=== PATIENT | female | born 1995 | race Caucasian/White ===

== ENCOUNTER 2023-08-25 15:46 | Emergency (ER) | payer SELFPAY ==
[2023-08-25 15:51] VITALS: BP 128/73; PULSE 102; TEMP 37.1; O2SAT 99; BMI 40.7
--- NOTE | 2023-08-25 16:04 | ED_ITS ---
HPI HPI - General Adult General Chief complaint: OB/Uterine Contractions Stated complaint: Anxiety, Check Time Seen by Provider: 08/25/23 15:50 Source: patient Mode of arrival: walk-in History of Present Illness HPI narrative: Patient is a 28-year-old female who presents to the emergency department for abdominal cramping for the last week associated with occasional vomiting and diarrhea. She states she is concerned she may be because she has irregular periods but thinks her period may be 1 week late. She is concerned because she has a history of depression and takes depression medications. She has had no fevers, chills, cough, congestion. She has no severe abdominal pain and declined the need for any pain medication or nausea medication. She has never been previously and states she is anxious to know if she is so she can find out what of her medication she can continue taking. 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 She does not report any vaginal bleeding, fluid leakage or urinary symptoms. Related Data Home Medications ?Medication ?Instructions ?Recorded ?Confirmed hydroxyzine pamoate 25 mg capsule 25 mg PO BID PRN anxiety 08/25/23 08/25/23 sertraline 100 mg tablet 150 mg PO DAILY 08/25/23 08/25/23 trazodone 50 mg tablet 50 mg PO QPM PRN sleep 08/25/23 08/25/23 Previous Rx's ?Medication ?Instructions ?Recorded ondansetron 4 mg disintegrating 4 mg PO Q6H PRN nausea and 08/25/23 tablet vomiting #12 tabs Allergies Allergy/AdvReac Type Severity Reaction Status Date / Time No Known Drug Allergies Allergy Verified 08/25/23 15:56 Opioid HPI Opioid Management Most Recent Opioid Data: Last ED Pain Assessment 08/25/23 16:47 Review of Systems ROS Constitutional Denies: fever or chills Ears, nose, mouth, and throat Denies: throat pain or nasal congestion Cardiovascular Denies: chest pain Respiratory Denies: shortness of breath or cough Gastrointestinal Reports: abdominal pain, nausea, vomiting and diarrhea Genitourinary Reports: pelvic pain; Denies: painful urination, vaginal bleeding or vaginal discharge Musculoskeletal Denies: back pain Integumentary/Breast Denies: rash Neurological Denies: headache Psychiatric Reports: anxiety Hematologic/Lymphatic Denies: easy bruising or easy bleeding Exam Narrative Exam Narrative: Gen.: Awake, alert, in no distress Head: Normocephalic, atraumatic ENT: Moist mucous membranes Respiratory: No respiratory distress Gastrointestinal: Abdomen is soft, obese, nondistended and nontender to pa lpation Extremities: Moves extremities equally Psych: Normal mood and affect Neuro: No focal neuro deficit Skin: Warm, dry, intact Constitutional Vital Signs, click to edit/add: Last Vital Signs Temp 98.8 F 08/25/23 15:51 Pulse 102 H 08/25/23 15:51 Resp 18 08/25/23 15:51 BP 128/73 08/25/23 15:51 Pulse Ox 99 08/25/23 15:51 O2 Del Method Room Air 08/25/23 15:51 Course Vital Signs Vital signs: Vital Signs Temperature 98.8 F 08/25/23 15:51 Pulse Rate 102 H 08/25/23 15:51 Respiratory Rate 18 08/25/23 15:51 Blood Pressure 128/73 08/25/23 15:51 Pulse Oximetry 99 08/25/23 15:51 Oxygen Delivery Method Room Air 08/25/23 15:51 Temperature 98.8 F 08/25/23 15:51 Pulse Rate 102 H 08/25/23 15:51 Respiratory Rate 18 08/25/23 15:51 Blood Pressure 128/73 08/25/23 15:51 Pulse Oximetry 99 08/25/23 15:51 Oxygen Delivery Method Room Air 08/25/23 15:51 Medical Decision Making MDM Narrative Medical decision making narrative: Abdomen is soft and benign in the ER, patient with no complaints of tenderness, no pain out of proportion, stable vital signs and no vomiting. She declined the need for any medication for pain or nausea. Labs are unremarkable, we will wait for urine culture as the specimen was contaminated and the patient has no vaginal bleeding, fluid leakage or urinary symptoms. Quantitative hCG level is 16,000. Patient was given general instructions, she was strongly encouraged to contact her PHYSICS DEPARTMENT CHAIR office on Sunday for further direction on her depression medications. Return to the ER if symptoms change or worsen. Medical Records Medical records reviewed: Yes I reviewed the patient's medical records Lab Data Lab results reviewed: Yes I reviewed the patient's lab results Labs: Lab Results 08/25/23 08/25/23 Range/Units 15:53 16:09 WBC 10.8 (4.0-11.0) 10^3/uL RBC 4.12 L (4.20-5.40) 10^6/uL Hgb 12.9 (12.0-16.0) g/dL Hct 38.9 (36.0-48.0) % MCV 94.4 (81.0-99.0) fL MCH 31.3 (26.7-34.0) pg MCHC 33.2 (29.9-35.2) g/dL RDW 12.7 (11.0-15.0) % Plt Count 269 (150-450) 10^3/uL MPV 9.8 (9.5-13.5) fL Neut % (Auto) 59.5 (43.0-75.0) % Lymph % (Auto) 29.5 (20.5-60.0) % [place] % (Auto) 5.9 (1.7-12.0) % Eos % (Auto) 3.5 (0.9-7.0) % Baso % (Auto) 0.5 (0.2-2.0) % Neut # (Auto) 6.5 (1.4-6.5) 10^3/uL Lymph # (Auto) 3.2 (1.2-3.8) 10^3/uL [place] # (Auto) 0.6 (0.3-0.8) 10^3/uL Eos # (Auto) 0.4 (0.0-0.7) 10^3/uL Baso # (Auto) 0.1 (0.0-0.1) 10^3/uL Abs Immat Gran (auto) 0.12 H (0.00-0.03) 10^3/uL Imm/Tot Granulo (auto) 1.1 H (0.0-0.5) % Sodium 140 (136-145) mmol/L Potassium 3.6 (3.5-5.1) mmol/L Chloride 105 (98-107) mmol/L Carbon Dioxide 25.6 (21.0-32.0) mmol/L Anion Gap 13.0 BUN 7.0 (7.0-18.0) mg/dL Creatinine 0.61 (0.55-1.02) mg/dL Est GFR ( Amer) >60 (>=60) Est GFR (Non-Af Amer) >60 (>=60) BUN/Creatinine Ratio 11.5 Glucose 86 (74-106) mg/dL Calcium 8.9 (8.5-10.1) mg/dL HCG, Quant 71776 mIU/mL Urine Color Lt. yellow (YELLOW) Urine Clarity Sl cloudy (CLEAR) Urine pH 6.0 (5.0-9.0) Ur Specific [place] 1.020 (1.005-1.025) Urine Protein Negative (NEG/TRACE) mg/dL Urine Glucose (UA) Negative (NEGATIVE) mg/dL Urine Ketones Negative (NEGATIVE) mg/dL Urine Occult Blood Trace-i (NEGATIVE) Urine Nitrite Negative (NEGATIVE) Urine Bilirubin Negative (NEGATIVE) Urine Urobilinogen 0.2 (0.2-1.0) EU/dL Ur Leukocyte Esterase Negative (NEGATIVE) Urine RBC 2-5 A (0-2) #/HPF Urine WBC 0-2 A (NONE SEEN) #/HPF Ur Squamous Epith Cells Many A (NONE/RARE) #/LPF Urine Crystals None seen (None Seen) #/HPF Urine Bacteria Small A (NONE SEEN) #/HPF Urine Casts None seen (NONE SEEN) #/LPF Urine Mucus None seen (NONE SEEN) Ur Culture Indicated? Yes Discharge Plan Discharge Stand Alone Forms: Portal Instructions Chief Complaint: OB/Uterine Contractions Clinical Impression: Patient Disposition: Home, Self-Care Time of Disposition Decision: 17:09 Condition: Good Prescriptions / Home Meds: New ondansetron 4 mg tablet,disintegrating 4 mg PO Q6H PRN (Reason: nausea and vomiting) Qty: 12 0RF No Action hydroxyzine pamoate 25 mg capsule 25 mg PO BID PRN (Reason: anxiety) sertraline 100 mg tablet 150 mg PO DAILY trazodone 50 mg tablet 50 mg PO QPM PRN (Reason: sleep) Print Language: Tanzanian Instructions: (ED) Referrals: Physician,Non-Staff, MD [Primary Care Provider] - 1 week
[2023-08-25 16:21] LABS: Basophils Absolute Auto 0.1 10^3/uL (0.0-0.1); Basophils Percent Auto 0.5 % (0.2-2.0); Eosinophils Absolute Auto 0.4 10^3/uL (0.0-0.7); Eosinophils Percent Auto 3.5 % (0.9-7.0); Hematocrit 38.9 % (36.0-48.0); Hemoglobin 12.9 g/dL (12.0-16.0); Immature Granulocytes Abs Auto 0.12 10^3/uL (0.00-0.03); Immature Granulocytes Pct Auto 1.1 % (0.0-0.5); Lymphocytes Absolute Auto 3.2 10^3/uL (1.2-3.8); Lymphocytes Percent Auto 29.5 % (20.5-60.0); Mean Corpuscular HGB Conc 33.2 g/dL (29.9-35.2); Mean Corpuscular Hemoglobin 31.3 pg (26.7-34.0); Mean Corpuscular Volume 94.4 fL (81.0-99.0); Mean Platelet Volume 9.8 fL (9.5-13.5); Monocytes Absolute Auto 0.6 10^3/uL (0.3-0.8); Monocytes Percent Auto 5.9 % (1.7-12.0); Neutrophils Absolute Auto 6.5 10^3/uL (1.4-6.5); Neutrophils Percent Auto 59.5 % (43.0-75.0); Platelet Count 269 10^3/uL (150-450); Red Blood Count 4.12 10^6/uL (4.20-5.40); Red Cell Distribution Width 12.7 % (11.0-15.0); White Blood Count 10.8 10^3/uL (4.0-11.0)
[2023-08-25 16:21] LABS: Bilirubin Urine NEGATIVE (NEGATIVE); Blood Urine TRACE-I (NEGATIVE); Clarity Urine SL CLOUDY (CLEAR); Color Urine LT. YELLOW (YELLOW); Glucose Urine UA NEGATIVE (NEGATIVE); Ketones Urine NEGATIVE (NEGATIVE); Leukocyte Esterase Urine NEGATIVE (NEGATIVE); Nitrite Urine NEGATIVE (NEGATIVE); Protein Urine NEGATIVE (NEG/TRACE); Urobilinogen Urine 0.2 EU/dL (0.2-1.0)
[2023-08-25 16:22] LABS: Urine Microscopic Indicated YES
[2023-08-25 16:31] LABS: BUN Creatinine Ratio 11.5; Calcium 8.9 mg/dL (8.5-10.1); Carbon Dioxide 25.6 mmol/L (21.0-32.0); Chloride 105 mmol/L (98-107); Estimated GFR (African America >60 (>=60); Estimated GFR (Non-African Ame >60 (>=60); Glucose 86 mg/dL (74-106); Potassium 3.6 mmol/L (3.5-5.1); Sodium 140 mmol/L (136-145)
[2023-08-25 16:33] LABS: Bacteria Urine SMALL #/HPF (NONE SEEN); Cast Seen? NONE SEEN #/LPF (NONE SEEN); Crystals Seen? None Seen #/HPF (None Seen); Mucus Urine NONE SEEN (NONE SEEN); Squamous Epithelial Cell Urine MANY #/LPF (NONE/RARE); Urine Culture Indicated YES; WBC Urine 0-2 #/HPF (NONE SEEN)
[2023-08-25 16:58] LABS: HCG Quantitative 16004 mIU/mL
[2023-08-25 17:21] VITALS: BP 129/90; PULSE 99; O2SAT 99
== END 2023-08-25 17:23 | disposition home or self-care (01) ==
PROVIDERS: Physician Assistant; Emergency Provider Emergency Medicine
DX: O99.340 Other mental disorders complicating pregnancy, unspecified trimester (principal); F32.A Depression, unspecified; Z3A.00 Weeks of gestation of pregnancy not specified
CPT/HCPCS: 36415; 80048; 81001; 84702; 85025; 87086; 99284

== ENCOUNTER 2023-10-07 22:26 | Emergency (ER) | payer MEDICAID, SELFPAY ==
[2023-10-07 22:30] VITALS: BP 137/70; PULSE 90; TEMP 36.8; O2SAT 97; BMI 40.8
--- NOTE | 2023-10-07 22:35 | ED_ITS ---
HPI - Nausea/Vomiting/Diarrhea General Chief complaint: Nausea/Vomiting/Diarrhea Stated complaint: Issues - 12 weeks Time Seen by Provider: 10/07/23 22:28 History of Present Illness HPI Narrative: 71 female presents to the emergency department for chief complaint of nausea and vomiting. She is about 12 weeks and she has had this for the last week. She has been taking Zofran at home. No vaginal bleeding or fever. She has not had diarrhea. Related Data Home Medications ?Medication ?Instructions ?Recorded ?Confirmed hydroxyzine pamoate 25 mg capsule 25 mg PO BID PRN anxiety 08/25/23 10/07/23 sertraline 100 mg tablet 150 mg PO DAILY 08/25/23 10/07/23 trazodone 50 mg tablet 50 mg PO QPM PRN sleep 08/25/23 10/07/23 aspirin 81 mg chewable tablet 10/07/23 Previous Rx's ?Medication ?Instructions ?Recorded ondansetron 4 mg disintegrating 4 mg PO Q6H PRN nausea and 08/25/23 tablet vomiting #12 tabs Allergies Allergy/AdvReac Type Severity Reaction Status Date / Time No Known Drug Allergies Allergy Verified 10/07/23 22:37 Review of Systems ROS Narrative A ten point review of systems is negative except as noted above. Exam Narrative Exam Narrative: Nurses note and vital signs reviewed and patient is not hypoxic. General: The patient appears well and in no apparent distress. Patient is resting comfortably on cart. Skin: Warm, dry, no pallor noted. There is no rash noted. Head: Normocephalic, atraumatic Eye: Normal conjunctiva, no drainage Ears, Nose, Mouth, and Throat: oral mucosa is moist. Nares patent. Cardiovascular: Regular Rate and Rhythm Respiratory: Patient is in no distress, no accessory muscle use, lungs are clear to auscultation, no wheezing, rales or rhonchi Back: non-tender GI: Soft and nontender Musculoskeletal: The patient has no evidence of calf tenderness, no pitting edema, symmetrical pulses noted bilaterally Neurological: A&O, normal speech Psychiatric: Cooperative Constitutional Vital Signs, click to edit/add: Last Vital Signs Temp 98.2 F 10/07/23 22:30 Pulse 76 10/08/23 00:19 Resp 16 10/08/23 00:19 BP 128/76 10/08/23 00:19 Pulse Ox 100 10/08/23 00:19 O2 Del Method Room Air 10/07/23 22:30 Course Vital Signs Vital signs: Vital Signs Temperature 98.2 F 10/07/23 22:30 Pulse Rate 90 10/07/23 22:30 Respiratory Rate 18 10/07/23 22:30 Blood Pressure 137/70 10/07/23 22:30 Pulse Oximetry 97 10/07/23 22:30 Oxygen Delivery Method Room Air 10/07/23 22:30 Temperature 98.2 F 10/07/23 22:30 Pulse Rate 76 10/08/23 00:19 Respiratory Rate 16 10/08/23 00:19 Blood Pressure 128/76 10/08/23 00:19 Pulse Oximetry 100 10/08/23 00:19 Oxygen Delivery Method Room Air 10/07/23 22:30 MDM - Nausea/Vomiting/Diarrhea MDM Narrative Medical decision making narrative: She was given IV fluids and seems to be feeling improved. Urine culture is ordered and pending. She does not have any UTI symptoms. She has Zofran recently prescribed for her. Treatment diagnosis and follow-up were discussed with the patient. Differential Diagnosis Differential diagnosis: Likely food poisoning, gastroenteritis and dehydration Lab Data Attestation: I reviewed the patient's lab results. Labs: Lab Results 10/07/23 10/07/23 Range/Units 22:40 23:05 WBC 10.0 (4.0-11.0) 10^3/uL RBC 4.00 L (4.20-5.40) 10^6/uL Hgb 12.4 (12.0-16.0) g/dL Hct 36.2 (36.0-48.0) % MCV 90.5 (81.0-99.0) fL MCH 31.0 (26.7-34.0) pg MCHC 34.3 (29.9-35.2) g/dL RDW 11.9 (11.0-15.0) % Plt Count 277 (150-450) 10^3/uL MPV 9.9 (9.5-13.5) fL Neut % (Auto) 54.9 (43.0-75.0) % Lymph % (Auto) 35.8 (20.5-60.0) % [place] % (Auto) 6.7 (1.7-12.0) % Eos % (Auto) 1.6 (0.9-7.0) % Baso % (Auto) 0.3 (0.2-2.0) % Neut # (Auto) 5.5 (1.4-6.5) 10^3/uL Lymph # (Auto) 3.6 (1.2-3.8) 10^3/uL [place] # (Auto) 0.7 (0.3-0.8) 10^3/uL Eos # (Auto) 0.2 (0.0-0.7) 10^3/uL Baso # (Auto) 0.0 (0.0-0.1) 10^3/uL Abs Immat Gran (auto) 0.07 H (0.00-0.03) 10^3/uL Imm/Tot Granulo (auto) 0.7 H (0.0-0.5) % Sodium 135 L (136-145) mmol/L Potassium 3.1 L (3.5-5.1) mmol/L Chloride 102 (98-107) mmol/L Carbon Dioxide 23.6 (21.0-32.0) mmol/L Anion Gap 12.5 BUN 7.0 (7.0-18.0) mg/dL Creatinine 0.51 L (0.55-1.02) mg/dL Est GFR ( Amer) >60 (>=60) Est GFR (Non-Af Amer) >60 (>=60) BUN/Creatinine Ratio 13.7 Glucose 86 (74-106) mg/dL Calcium 8.7 (8.5-10.1) mg/dL Urine Color Yellow (YELLOW) Urine Clarity Clear (CLEAR) Urine pH 7.0 (5.0-9.0) Ur Specific [place] 1.020 (1.005-1.025) Urine Protein Negative (NEG/TRACE) mg/dL Urine Glucose (UA) Negative (NEGATIVE) mg/dL Urine Ketones 40 A (NEGATIVE) mg/dL Urine Occult Blood Negative (NEGATIVE) Urine Nitrite Negative (NEGATIVE) Urine Bilirubin Negative (NEGATIVE) Urine Urobilinogen 2.0 A (0.2-1.0) EU/dL Ur Leukocyte Esterase Trace A (NEGATIVE) Urine RBC 0-2 (0-2) #/HPF Urine WBC 5-10 A (NONE SEEN) #/HPF Ur Squamous Epith Cells Few A (NONE/RARE) #/LPF Ur Transition Epith Cell Rare A (NONE SEEN) #/LPF Urine Crystals Seen A (None Seen) #/HPF Amorphous Sediment Many Urine Bacteria Moderate A (NONE SEEN) #/HPF Urine Casts None seen (NONE SEEN) #/LPF Urine Mucus Moderate A (NONE SEEN) Ur Culture Indicated? Yes Discharge Plan Discharge Stand Alone Forms: Portal Instructions Chief Complaint: Nausea/Vomiting/Diarrhea Clinical Impression: Nausea & vomiting Patient Disposition: Home, Self-Care Time of Disposition Decision: 00:54 Condition: Good Mode of Transportation: Private Vehicle Prescriptions / Home Meds: No Action hydroxyzine pamoate 25 mg capsule 25 mg PO BID PRN (Reason: anxiety) Hold Instructions: sertraline 100 mg tablet 150 mg PO DAILY trazodone 50 mg tablet 50 mg PO QPM PRN (Reason: sleep) Hold Instructions: ondansetron 4 mg tablet,disintegrating 4 mg PO Q6H PRN (Reason: nausea and vomiting) Qty: 12 0RF aspirin 81 mg tablet,chewable Print Language: Setswana Instructions: Acute Nausea and Vomiting (ED) Referrals: Physician,Non-Staff, MD [Primary Care Provider] - 1 week
[2023-10-07 22:48] LABS: Basophils Percent Auto 0.3 % (0.2-2.0); Eosinophils Absolute Auto 0.2 10^3/uL (0.0-0.7); Eosinophils Percent Auto 1.6 % (0.9-7.0); Hematocrit 36.2 % (36.0-48.0); Hemoglobin 12.4 g/dL (12.0-16.0); Immature Granulocytes Abs Auto 0.07 10^3/uL (0.00-0.03); Immature Granulocytes Pct Auto 0.7 % (0.0-0.5); Lymphocytes Absolute Auto 3.6 10^3/uL (1.2-3.8); Lymphocytes Percent Auto 35.8 % (20.5-60.0); Mean Corpuscular HGB Conc 34.3 g/dL (29.9-35.2); Mean Corpuscular Volume 90.5 fL (81.0-99.0); Mean Platelet Volume 9.9 fL (9.5-13.5); Monocytes Absolute Auto 0.7 10^3/uL (0.3-0.8); Monocytes Percent Auto 6.7 % (1.7-12.0); Neutrophils Absolute Auto 5.5 10^3/uL (1.4-6.5); Neutrophils Percent Auto 54.9 % (43.0-75.0); Platelet Count 277 10^3/uL (150-450); Red Cell Distribution Width 11.9 % (11.0-15.0)
[2023-10-07 22:56] LABS: Anion Gap 12.5; BUN Creatinine Ratio 13.7; Calcium 8.7 mg/dL (8.5-10.1); Carbon Dioxide 23.6 mmol/L (21.0-32.0); Chloride 102 mmol/L (98-107); Estimated GFR (African America >60 (>=60); Estimated GFR (Non-African Ame >60 (>=60); Glucose 86 mg/dL (74-106); Potassium 3.1 mmol/L (3.5-5.1); Sodium 135 mmol/L (136-145)
[2023-10-07] MEDS: 0.9 % SODIUM CHLORIDE 1,000 ML 1000 ML IV (22:56)
[2023-10-07] MEDS: ONDANSETRON PF 4 MG/2 ML VIAL IV (22:56)
[2023-10-07 23:12] LABS: Bilirubin Urine NEGATIVE (NEGATIVE); Blood Urine NEGATIVE (NEGATIVE); Clarity Urine CLEAR (CLEAR); Color Urine YELLOW (YELLOW); Glucose Urine UA NEGATIVE (NEGATIVE); Ketones Urine 40 mg/dL (NEGATIVE); Leukocyte Esterase Urine TRACE (NEGATIVE); Nitrite Urine NEGATIVE (NEGATIVE); Protein Urine NEGATIVE (NEG/TRACE)
[2023-10-07 23:20] LABS: Amorphous Sediment Urine MANY; Bacteria Urine MODERATE #/HPF (NONE SEEN); Cast Seen? NONE SEEN #/LPF (NONE SEEN); Crystals Seen? Seen #/HPF (None Seen); Mucus Urine MODERATE (NONE SEEN); RBC Urine 0-2 #/HPF (0-2); Squamous Epithelial Cell Urine FEW #/LPF (NONE/RARE); Transitional Epi Cells Urine RARE #/LPF (NONE SEEN); Urine Culture Indicated YES
[2023-10-08] MEDS: 0.9 % SODIUM CHLORIDE 1,000 ML 1000 ML IV
[2023-10-08 00:19] VITALS: BP 128/76; PULSE 76; O2SAT 100
[2023-10-08 01:13] VITALS: BP 123/71; PULSE 80; O2SAT 100
== END 2023-10-08 01:13 | disposition home or self-care (01) ==
PROVIDERS: Emergency Provider Emergency Medicine
DX: O26.891 Other specified pregnancy related conditions, first trimester (principal); R11.2 Nausea with vomiting, unspecified; Z3A.12 12 weeks gestation of pregnancy
CPT/HCPCS: 36415; 80048; 81001; 85025; 87086; 96361; 96374; 99284

== ENCOUNTER 2023-12-08 16:36 | Emergency (ER) | payer MEDICAID, SELFPAY ==
[2023-12-08 16:44] VITALS: BP 122/64; PULSE 102; TEMP 36.8; O2SAT 98; BMI 40.4
--- OUTSIDE RECORDS SUMMARY | 2023-12-08 16:47 | XMS_ITS | CCD ---
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 Supervisor: Israel Valiente MD WBC (Bld) [#/Vol] 12.1 10*3/uL High 3.5-11.[address] [facility] Comment on above: Performed By: #### B HCG #### [address] [place] [phone] Ingot Supervisor: Israel Valiente MD Type + Scrnon 09-04 Type + Scrn Negative Normal [facility] Comment on above: Performed By: #### P RTYS #### [address] [place], [facility]83 Ingot Supervisor: Israel Valiente MD US OB LESS THAN 14 WEEKS SIN GLE OR FIRST GESTATIONon 09-05-2023 US OB LESS THAN 14 WEEKS SINGLE OR FIRST GESTATION Table formatting from the original result was not included. Bruna Bowie on 09/05/2023 2:16 PM EDT 7.4 WK IUP CL:3.0 cm HR:143 bpm RT. OVARY:Seen, WNL LT. OVARY:Not visualized due to overlying bowel and gas Interpreted by: Lazaro Tucker MD Signed by: Lazaro Tucker MD 09/05/23 Final result Normal [facility] HCG, Quanton 08-27-2023 HCG, Quant 21635.0 mIU/mL High <5 [facility] in Hospital Comment on above: Result Comment: Non-preg premeno <=5 Postmeno <=8 Male <=3 If HCG results do not concur with clinical observations, additional testing to confirm results is recommended. Performed By: #### B HCG #### [facility] [address] [place] [address] Ingot Supervisor: Israel Valiente MD US NON OB TRANSVAGINALon US NON OB TRANSVAGINAL UTERUS:anteverted, homogeneous echo pattern; wnl ENDO:7mm in thickness RT. OVARY:seen, follicles visualized LT. OVARY:seen, dominant follicle felix- 1.6cm x 1.5cm x 1.2cm Interpreted by: Yeimi Kat DO Signed by: Yeimi Kat DO 03/08/23 Final result Normal [facility] Estradiolon 03-03-2023 Estradiol 72.0 pg/mL Normal [facility] Comment on above: Result Comment: FEMALES: Normally menstruating Luteal phase 60-232 Follicular phase 31-90 Midcycle phase 60-533 Postmenopausal (untreated) <138 Fulvestrant treatment will show an increased estradiol concentration with this methodology. Alternate methodologies are available upon request. Performed By: #### T EST, HIVCMB, PROG, TREP, AHCV, PROL, E2, FSH #### [address] [place] [address] Ingot Supervisor: Maurice Alejandre MD Follicle Stim. Hormon 2022 Follicle Stim. Horm 5.6 mIU/mL Normal [facility] Comment on above: Result Comment: Refe rence Range: Male: 1.5-12.4 Ovulating Female: Follicular Phase 3.5-12.5 Ovulation Phase 4.7-21.5 Luteal Phase 1.7-7.7 Postmenopausal Female: 25.8-134.8 Performed By: #### T EST, HIVCMB, PROG, TREP, AHCV, PROL, E2, FSH #### [address] [place], [place] [address] Ingot Supervisor: Maurice Alejandre MD Progesteroneon 03-03-2023 Progesterone 0.27 ng/mL Normal [facility] Comment on above: Result Comment: Female: Follicular phase <0.19 ng/mL Ovulation phase 0.06-4.14 ng/mL Luteal phase 4.11-14.5 ng/mL Postmenopausal <0.13 ng/mL Performed By: #### B HCG #### [facility] [address] [place] [address] Ingot Supervisor: Israel Valiente MD Chlamydia/GC DNA, TPon 03-02 Chlamydia Probe, TP Negative Normal NEG [facility] Comment on above: Result Comment: CHLA MYDIA TRACHOMATIS DNA not detected by nucleic acid amplification. This test is intended for medical purposes only and is not valid for the evaluation of suspected sexual abuse or for other forensic purposes. In certain contexts, culture may be required to meet applicable laws and regulations for diagnosis of C. trachomatis and N. gonorrhoeae infections. Per 2014 CDC recommendations, this test does not include confirmation of positive results by an alternative nucleic acid target. Performed By: #### C YTCGP #### [address] [id number] Ingot Supervisor: Maurice Alejandre MD Gonorrhea Probe, TP Negative Normal NEG [facility] Comment on above: Result Comment: NEIS SERIA GONORRHOEAE DNA not detected by nucleic acid amplification. This test is intended for medical purposes only and is not valid for the evaluation of suspected sexual abuse or for other forensic purposes. In certain contexts, culture may be required to meet applicable laws and regulations for diagnosis of C. trachomatis and N. gonorrhoeae infections. Per 2014 CDC recommendations, this test does not include confirmation of positive results by an alternative nucleic acid target. Performed By: #### C YTCGP #### [facility] [address] [place], [place] [phone] Ingot Supervisor: Maurice Alejandre MD HIV Ag/Abon 03-02-2023 HIV Ag/Ab Non-Reactive Normal NR [facility] Comment on above: Result Comment: No l aboratory evidence of HIV infection. If acute HIV infection is suspected, consider testing for HIV-1 RNA. Performed By: #### T EST, HIVCMB, PROG, TREP, AHCV, PROL, E2, FSH #### [address] [id number] Ingot Supervisor: Maurice Alejandre MD Prolactinon 03-02-2023 Prolactin 6.60 ng/mL Normal 4.79-23.[address] [facility] Comment on above: Result Comment: The presence of macroprolactin may cause interference in female patients with various endocrinological diseases or during . Performed By: #### T EST, HIVCMB, PROG, TREP, AHCV, PROL, E2, FSH #### [address] [id number] Ingot Supervisor: Maurice Alejandre MD T.pallidum Ab Screenon 03-02 T.pallidum Ab Screen Non-Reactive Normal NR [facility] Comment on above: Result Comment: T. pallidum antibodies are not detected. There is no serological evidence of infection with T. pallidum (early primary syphilis cannot be excluded). Retest in 2-4 weeks if syphilis is clinically suspect. Performed By: #### T EST, HIVCMB, PROG, TREP, AHCV, PROL, E2, FSH #### [address] [id number] Ingot Supervisor: Maurice Alejandre MD Testosterone, Totalon 2022 Testosterone [Mass/Vol] 50 ng/dL Normal 20-[address] [facility] Comment on above: Performed By: #### T EST, HIVCMB, PROG, TREP, AHCV, PROL, E2, FSH #### [address] [id number] Ingot Supervisor: Maurice Alejandre MD Cytology Reporton 03-01-2023 Cytology report Cyto stain.thin prep Doc (Cvx/Vag) (NOTE) Path Number: [id number] DIAGNOSIS Imaged ThinPrep Pap - Cervical (1 monolayer slide): Specimen Adequacy: Satisfactory for evaluation. - Endocervical/transform ation zone component present. - Partially obscuring cellular detail, due to thick clumps of cells. Descriptive Diagnosis: Negative for intraepithelial lesion or malignancy. Cytotech Screener: EY Electronically Signed Out [facility] SURESH(ASCP) ey/03/07/2023 Source of Specimen: A: Imaged ThinPrep Pap - Cervical (1 monolayer slide) HPV Reflex?............... .......HPV if ASCUS Clinical History Z12.4 Encounter for screening for malignant neoplasm of cervix LMP: 02/09/2023 Processing Lab: [address] [id number] Interpretation performed at [address] [phone] The Pap smear is a screening test primarily for squamous epithelial lesions, which is subject to both false negative and false positive results. Your patient should be reminded to consult you immediately if she experiences any suspicious signs or symptoms, regardless of her Pap smear result. GYNECOLOGIC CYTOLOGY REPORT Patient Name: МАРИНА SAMSON [facility] Rec: [id number] [facility] ANATOMIC PATHOLOGY [address] [place] [address]. [place], [place] [address] [facility] HCG, Quanton 03-01-2023 HCG, Quant <1.0 Normal <[address] [facility] Comment on above: Result Comment: Non-preg premeno <=5 Postmeno <=8 Male <=3 If HCG results do not concur with clinical observations, additional testing to confirm results is recommended. Performed By: #### B HCG #### [facility] [address] [place] [address] Ingot Supervisor: Israel Valiente MD Hep C Abon 03-01-2023 Hep C Ab Non-Reactive Normal NR [facility] Comment on above: Result Comment: The hepatitis C procedure used in our laboratory is a Chemiluminescent test specific for three recombinant HCV antigens. A negative anti-HCV result indicates that the antibodies to hepatitis C virus are not present at this time. Individuals with reactive anti-HCV should be considered infected and infectious until proven otherwise. Confirmation of all equivocal or reactive results is recommended by ordering HCV RNA by PCR. Performed By: #### T EST, HIVCMB, PROG, TREP, AHCV, PROL, E2, FSH #### [facility] [address] [place] [address] Ingot Supervisor: Maurice Alejandre MD TSH w/reflex to FT4on 2022 Thyroid Stim. Horm. 0.61 uIU/mL Normal 0.30-5.00 [facility] Comment on above: Performed By: #### B HCG #### [facility] [address] [place] [address] Ingot Supervisor: Israel Valiente MD CT CSPINE WO CONon 3 CT CSP[address] WO CON CT CERVICAL SPINE WITHOUT CONTRAST HISTORY: UNSPECIFIED INJURY OF HEAD, INITIAL ENCOUNTER. COMPARISON: None available. TECHNIQUE: Helical CT images were performed of the cervical spine without intravenous contrast. Dose reduction techniques were achieved by using automated exposure control and/or adjustment of mA and/or kV according to patient size and/or use of iterative reconstruction technique. FINDINGS: MINERALIZATION: Normal. No evidence of destructive lesions. CRANIOCERVICAL AND ATLANTOAXIAL ARTICULATIONS: Intact with no traumatic subluxation. VERTEBRAL BODIES: Normal in height with no acute compression fracture. Developmentally incomplete fusion of the posterior arch of C1. DISC SPACES: Normal. ALIGNMENT: Mild reversal of the normal lordosis. No traumatic malalignment. POSTERIOR ELEMENTS: Intact. ODONTOID PROCESS: Intact. VISUALIZED SKULL BASE: Unremarkable. SPINAL CANAL/NEURAL FORAMEN: No critical osseous spinal canal or neural foraminal stenosis seen. SOFT TISSUES OF THE NECK: Unremarkable. UPPER THORAX: Unremarkable. IMPRESSION: No acute cervical spine fracture or traumatic malalignment. Mild reversal of the normal cervical lordosis, can be seen with pain, positioning, muscular spasm. Electronically authenticated by: JOZEF SANTAMARIA Date: 2022-06-03 00:42 Normal [facility] CT FACIAL BONES WO CONon CT FACIAL BONES WO CON EXAM: CT FACIAL BONES WO CON HISTORY: UNSPECIFIED INJURY OF FACE, INITIAL ENCOUNTER COMPARISON: None. TECHNIQUE: CT examination of the facial bones without IV contrast. Multiplanar reformats generated. Dose reduction techniques were achieved by using automated exposure control and/or adjustment of mA and/or kV according to patient size and/or use of iterative reconstruction technique. FINDINGS: Facial bones: No evidence of an acute fracture in the visualized facial bones. Orbits: No evidence of an acute fracture. The globes appear intact. The soft tissue planes of the orbits are maintained. No retrobulbar hematoma is seen. Paranasal Sinuses: The paranasal sinuses show no significant fluid. Mild mucosal thickening in the maxillary sinuses. Soft Tissues: No significant superficial soft tissue swelling. No evidence of radiopaque foreign bodies. Other: None. IMPRESSION: No evidence of acute facial bone fracture. Electronically authenticated by: JOZEF SANTAMARIA Date: 2022-06-03 00:25 Normal [facility] CT HEAD WO CONon 06-03-2022 CT HEAD WO CON EXAMINATION: CT HEAD WO CON HISTORY: UNSPECIFIED INJURY OF HEAD, INITIAL ENCOUNTER COMPARISON: None. TECHNIQUE: CT examination of the head without IV contrast. Multiplanar reformats generated. Dose reduction techniques were achieved by using automated exposure control and/or adjustment of mA and/or kV according to patient size and/or use of iterative reconstruction technique. FINDINGS: Acute Findings: No evidence of acute intracranial hemorrhage, large acute territorial infarct, or suggestion of mass effect. No midline shift. MRI is more sensitive for detecting acute processes such as infarct, and may be considered if clinically warranted. Chronic Changes: None. White matter appears within normal limits for age. Ventricles and sulci: Appear within normal limits. Other: The skull appears grossly intact, without visualized fracture. No significant fluid is seen in the visualized paranasal sinuses. Mild mucosal thickening in the maxillary sinuses. Mastoid air cells are clear. Visualized portions of the orbits and extracranial soft tissues show no gross abnormality. IMPRESSION: No CT evidence of an acute intracranial abnormality. Electronically authenticated by: JOZEF SANTAMARIA Date: 2022-06-03 00:20 Normal [facility] Vital Signs Date Time Vital Sign Value Performing Clinician Katy haro 10-11-2023 11:52-0400 Diastolic blood pressure 56 mm[Hg] [facility] 03 [facility] 10-11-2023 11:52-0400 Heart rate 66 /min [facility] 03 [facility] Juana TYFFON 10-11-2023 11:52-0400 Respiratory rate 18 /min [facility] 03 [facility] 10-11-2023 11:52-0400 Systolic blood pressure 107 mm[Hg] [facility] 03 [facility] 10-11-2023 10:15-0400 Body temperature 97.39 [degF] [facility] 03 [facility] Encounters Encounter Date Encounter Type Care Provider Facility Start: 10-31-2023 End: 11-02-2023 [facility] [place] [facility] Start: 10-15-2023 End: 10-15-2023 [facility] [place] [facility] Start: 10-11-2023 End: 10-11-2023 ambulatory [facility] Start: 10-11-2023 End: 10-11-2023 Subsequent hospital visit by physician [facility] Start: 09-05-2023 End: 09-05-2023 ambulatory [facility] [place] [facility] Start: 09-05-2023 End: 09-05-2023 [facility] Start: 08-27-2023 End: 08-27-2023 [facility]ulatory [facility] Start: 03-01-2023 End: 03-01-2023 ambulatory [facility] Start: 03-01-2023 [facility] Start: 03-01-2023 End: 03-01-2023 ambulatory [facility] Start: 06-03-2022 End: 06-03-2022 ambulatory VOLODYMYR ARGELIA Facility:H1 Procedures Date Procedure Procedure Detail Performing Clinician Start: 10-11-2023 Comprehensive metabo lic panel Sid Trinidad ROSA MARIA - MELANIEM Work Phone: Start: 03-01-2023 Microscopic observat ion [Identifier] in Cervix by Cyto stain [facility] 03 Plan of Treatment Date Care Activity Detail Author Start: 03-01-2026 Screening for malign ant neoplasm of cervix [facility] Start: 08-26-2024 Depression Monitoring Depression Mon [facility] Start: 02-20-2024 Respiratory Syncytia l Virus (RSV) or age 60 yrs+ (1 - Risk 1-dose series) Respiratory Syncytial Virus (RSV) or age 60 yrs+ (1 - Risk 1-dose series) [facility] Start: 02-07-2024 End: 02-07-2024 Patient encounter procedure 02/07/2024 9:30 AM EDT Routine [facility] Part of [address] [place] [address] Sid Trinidad, ROSA MARIA - YUVAL [address] [place] [address] [address] [place] [address] ob / 30 week / tdap [facility] Comment on above: ob / 30 week / tdap Start: 02-07-2024 End: 02-07-2024 Professional / ancillary services management 02/07/2024 9:00 AM EDT Ancillary Procedure [facility] Part [address] [place] [address] ob / 30 week [facility] Comment on above: ob / 30 week Start: 12-06-2023 Influenza vaccination Flu vacc ine (Season Ended) [facility] Start: 11-29-2023 End: 11-29-2023 Patient encounter procedure 11/29/2023 10:30 AM EDT Routine [facility] [address] [place] [address] Sid Trinidad, ROSA MARIA - YUVAL [address] [place] [address] [address] [place] [address] ob / 20 week [facility] Comment on above: ob / 20 week Start: 11-29-2023 End: 11-29-2023 Professional / ancillary services management 11/29/2023 9:30 AM EDT Ancillary Procedure [facility] [address] [place] [address] ob / 20 week [facility] Comment on above: ob / 20 week Start: 10-29-2023 End: 10-29-2023 Patient encounter procedure 10/29/2023 5:45 PM EDT Routine [facility] [address] [address] Sid Trinidad, ACCOUNTS RECEIVABLE SPECIALIST - YUVAL [address] [place] [id number] ob [facility] Comment on above: ob Start: 10-18-2023 End: 10-18-2023 Patient encounter procedure 10/18/2023 4:30 PM EDT Routine [place] [id number] ob / weight check KENDRICK Pt [facility] Comment on above: ob / weight check KENDRICK Pt Start: 2015 DTaP/Tdap/Td vaccine (1 - Tdap) DTaP/Tdap/Td vaccine (1 - Tdap) [facility] Start: 2002 Pneumococcal 0-64 ye ars Vaccine (1 of 2 - PCV) Pneumococcal 0-64 years Vaccine (1 of 2 - PCV) [facility] Start: 1997 Varicella vaccine (1 of 2 - 2-dose childhood series) Varicella vaccine (1 of 2 - 2-dose childhood series) [facility] Start: 1996 COVID-19 Vaccine (#1) COVID-19 Vacci ne (#1) [facility] Start: 1996 Hepatitis B vaccine (1 of 3 - 3-dose series) Hepatitis B vaccine (1 of 3 - 3-dose series) [facility] Payers Date Payer Category Payer Medicaid [id number] 1. [id number] 2022 Unknown [id number] 1996 Unknown [id number] 1996 Unknown [id number] [id number]. [id number] 1996 Unknown [id number] 2.16.8 [id number] 1996 Unknown [id number] 2.16.8 [id number] 1996 Unknown [id number] 2.16.8 [id number] 1996 Unknown [id number] 2.16.8 [id number] 1996 Unknown [id number] 2.16.8 [id number] Social History Date Type Detail Facility Start: [facility]23 [facility] [place] History of tobacco use Cigarette Smoker B [facility] [employer] Start: 10-11-2023 Alcohol intake Ex-drinker (finding) [place] Start: 03-01-2023 End: 10-11-2023 History of Social function [place] Start: 03-01-2023 End: 10-11-2023 Tobacco use panel [place] How hard is it for y ou to pay for the very basics like food, housing, medical care, and heating Not hard at all [place] (I/We) worried wheth er (my/our) food would run out before (I/we) got money to buy more. Never true [place] At any time in the p ast 12 months, were you homeless or living in assisted [including now]? No [place] Start: 07-25-2023 [employer] Start: 1996 Sex Assigned At Not on file B ON [employer] Summary Purpose Family History No Family History Records FoundNo Family History Records FoundNo Family History Records Found Advance Directives No Advanced Directives Records FoundNo Advanced Directives Records FoundNo Advanced Directives Records Found Additional Source Comments INFORMATION SOURCE (unrecogn ized section and content) DATE CREATED AUTHOR 06/05/2022 [facility] DATE CREATED AUTHOR AUTHOR'S ORGANIZ ATION 10/30/2023 [facility] DATE CREATED AUTHOR AUTHOR'S ORGANIZ ATION 11/04/2023 [facility] Care Teams (unrecognized sec tion and content) Test Department Helper Relationship Specialty Start Date End Date Bianka Pickard APRN - SOCIOLOGY INSTRUCTOR PCP - General 05/15/22 FOR RECORDS PERTAINING TO PATIENTS WHO ARE OR HAVE BEEN ENROLLED IN A CHEMICAL DEPENDENCY/SUBSTANCEABUSE PROGRAM, SOME INFORMATION MAY BE OMITTED. This clinical summary was aggregated from multiple sources. Caution should be exercised in using it in the provision of clinical care. This summary normalizes information from multiple sources, and as a consequence, information in this document may materially change the coding, format and clinical context of patient data. In addition, data may be omitted in some cases. CLINICAL DECISIONS SHOULD BE BASED ON THE PRIMARY CLINICAL RECORDS. [facility]. provides no warranty or guarantee of the accuracy or completeness of information in this document.
--- NOTE | 2023-12-08 17:05 | ED.DENTAL1 ---
HPI - Dental/Oral General Chief complaint: OB/Uterine Contractions Stated complaint: Dental Pain. Pt-21wks cramping FB aware Time Seen by Provider: 12/08/23 16:47 Source: patient Mode of arrival: walk-in History of Present Illness HPI Narrative: 28-year-old female presents for 2 issues. First she has dental pain, she has a bump on her left upper gingiva. It has been there since yesterday. No bleeding or purulent drainage. Second she has been having intermittent abdominal cramps for 2 days and she is 1 day short of 22 weeks . No vaginal bleeding. The cramping comes and goes. Related Data Home Medications ?Medication ?Instructions ?Recorded ?Confirmed hydroxyzine pamoate 25 mg capsule 25 mg PO BID PRN anxiety 08/25/23 10/07/23 sertraline 100 mg tablet 150 mg PO DAILY 08/25/23 10/07/23 trazodone 50 mg tablet 50 mg PO QPM PRN sleep 08/25/23 10/07/23 aspirin 81 mg chewable tablet 10/07/23 Previous Rx's ?Medication ?Instructions ?Recorded ondansetron 4 mg disintegrating 4 mg PO Q6H PRN nausea and 08/25/23 tablet vomiting #12 tabs penicillin V potassium 250 mg 250 mg PO QID 10 days #40 tabs 12/08/23 tablet Allergies Allergy/AdvReac Type Severity Reaction Status Date / Time No Known Drug Allergies Allergy Verified 10/07/23 22:37 Review of Systems ROS Narrative A ten point review of systems is negative except as noted above. Exam Narrative Exam Narrative: Nurses note and vital signs reviewed and patient is not hypoxic. General: The patient appears well and in no apparent distress. Patient is resting comfortably on cart. Skin: Warm, dry, no pallor noted. There is no rash noted. Head: Normocephalic, atraumatic Eye: Normal conjunctiva, no drainage Ears, Nose, Mouth, and Throat: oral mucosa is moist. Nares patent. Mild swelling present to the left upper gingiva. No swelling to the floor of her mouth. Cardiovascular: Regular Rate and Rhythm Respiratory: Patient is in no distress, no accessory muscle use, lungs are clear to auscultation, no wheezing, rales or rhonchi Back: non-tender GI: Soft gravid and nontender Musculoskeletal: The patient has no evidence of calf tenderness, no pitting edema, symmetrical pulses noted bilaterally Neurological: Awake and alert Psychiatric: Cooperative Constitutional Vital Signs, click to edit/add: Last Vital Signs Temp 98.2 F 12/08/23 16:44 Pulse 102 H 12/08/23 16:44 Resp 16 12/08/23 16:44 BP 122/64 12/08/23 16:44 Pulse Ox 98 12/08/23 16:44 O2 Del Method Room Air 12/08/23 16:44 Course Vital Signs Vital signs: Vital Signs Temperature 98.2 F 12/08/23 16:44 Pulse Rate 102 H 12/08/23 16:44 Respiratory Rate 16 12/08/23 16:44 Blood Pressure 122/64 12/08/23 16:44 Pulse Oximetry 98 12/08/23 16:44 Oxygen Delivery Method Room Air 12/08/23 16:44 Temperature 98.2 F 12/08/23 16:44 Pulse Rate 102 H 12/08/23 16:44 Respiratory Rate 16 12/08/23 16:44 Blood Pressure 122/64 12/08/23 16:44 Pulse Oximetry 98 12/08/23 16:44 Oxygen Delivery Method Room Air 12/08/23 16:44 MDM - Dental/Oral MDM Narrative Medical decision making narrative: She is prescribed penicillin for the dental issue and is being discharged from the emergency department and sent up to labor and delivery for evaluation. Findings are discussed with the patient. Differential Diagnosis Differential diagnosis: Likely gingival abscess, dental caries, toothache and dental abscess Discharge Plan Discharge Stand Alone Forms: Portal Instructions Chief Complaint: OB/Uterine Contractions Clinical Impression: Pain, dental, Abdominal pain during Patient Disposition: Home, Self-Care Time of Disposition Decision: 17:05 Condition: Good Mode of Transportation: Private Vehicle Prescriptions / Home Meds: New penicillin V potassium 250 mg tablet 250 mg PO QID 10 Days Qty: 40 0RF No Action hydroxyzine pamoate 25 mg capsule 25 mg PO BID PRN (Reason: anxiety) Hold Instructions: sertraline 100 mg tablet 150 mg PO DAILY trazodone 50 mg tablet 50 mg PO QPM PRN (Reason: sleep) Hold Instructions: ondansetron 4 mg tablet,disintegrating 4 mg PO Q6H PRN (Reason: nausea and vomiting) Qty: 12 0RF aspirin 81 mg tablet,chewable Print Language: Slovenian Instructions: Abdominal Pain in (ED), Toothache (ED) Referrals: Physician,Non-Staff, MD [Primary Care Provider] - 1 week
== END 2023-12-08 17:14 | disposition home or self-care (01) ==
PROVIDERS: Emergency Provider Emergency Medicine
DX: O26.892 Other specified pregnancy related conditions, second trimester (principal); K08.89 Other specified disorders of teeth and supporting structures; R10.9 Unspecified abdominal pain; Z3A.21 21 weeks gestation of pregnancy
CPT/HCPCS: 99283

== ENCOUNTER 2023-12-08 17:11 | Observation (INO) | payer MEDICAID, SELFPAY ==
--- OUTSIDE RECORDS SUMMARY | 2023-12-08 17:16 | XMS_ITS | CCD ---
Author Organization [facility] Care Team Providers Care Software Client Architect Name Role Phone VOLODYMYR STOUT Attending Unavailable REQUEST, NONE LISTED Primary Care Unavaila ble VOLODYMYR STOUT Admitting Unavailable VOLODYMYR STOUT Consulting Unavailable JOZEF SANTAMARIA Consulting Unavailable Malia SEISMOGRAPH CHIEF - BUDGET AND POLICY ANALYST, Bianka Richmond Primary Care Provider Un available PICKARD, BIANKA D Primary Care Unavailable AMOS, JUSTEEN Referring Unavailable AMOS, JUSTEEN Referring Unavailable PICKARD, BIANKA D Primary Care Unavailable JESENIA KOROMA Referring Unavailabl e PICKARD, BIANKA D Primary Care Unavailable AMOS, JUSTEEN Referring Unavailable PICKARD, BIANKA D Primary Care Unavailable AMOS, JUSTEEN Referring Unavailable PICKARD, BIANKA D Primary Care Unavailable AMOS, JUSTEEN Referring Unavailable PICKARD, BIANKA D Primary Care Unavailable AMOS, JUSTEEN Referring Unavailable PCIKARD, BIANKA D Primary Care Unavailable AMOS, JUSTEEN [...] [Ratio] 11.9 % 11.8 - 14.4 % [facility]OSPITALSignal PatternsOH[facility] Hematocrit (Bld) [Volume fraction] 36.3 % 36.3 - 47.1 % [facility] Hemoglobin (Bld) [Mass/Vol] 12.9 g/dL 11.9 - 15.1 g/dL [facility] HOSPITALBizeeBee [facility] Interpretation and review of laboratory results Abnormal [facility] MCH (RBC) [Entitic mass] 31.7 pg 25.2 - 33.5 pg [facility] MCHC (RBC) [Mass/Vol] 35.5 g/dL High 28.4 - 34.8 g/dL [facility] MCV (RBC) [Entitic vol] 89.2 fL 82.6 - 102.9 fL [facility] Nucleated RBC/100 WBC (Bld) [Ratio] 0.0 % 0.0 per 100 WBC [facility] WhoAPI Slipstream Platelet mean volume (Bld) [Entitic vol] 10.3 fL 8.1 - 13.5 fL [facility] Platelets (Bld) [#/Vol] 278 10*3/uL [facility] RBC (Bld) [#/Vol] 4.07 10*6/uL 3.95 - 5.1 1 m/uL [facility] WBC other (Bld) [#/Vol] 9.0 [facility] Erythrocyte distribution width (RBC) [Ratio] 11.9 % Normal 11.8-14.4 [facility] Comment on above: Performed By: #### B HCG #### [facility] [address] [place] [address] [place]. [place], [place] [id number] [facility] Assistant: Israel Valiente MD Hematocrit (Bld) [Volume fraction] 36.3 % Normal 36.3-47.1 [facility] Comment on above: Performed By: #### B HCG #### [facility] [address] [place] [address] [place], [place] [id number] [employer] [facility] Assistant: Israel Valiente MD Hemoglobin (Bld) [Mass/Vol] 12.9 g/dL Normal 11.9-15.1 [facility] Comment on above: Performed By: #### B HCG #### [facility] [address] [place] [address] [place]. [place], [place] [id number] [employer] [facility] Assistant: Israel Valiente MD MCH (RBC) [Entitic mass] 31.7 pg Normal 25.2-33.5 [facility] Comment on above: Performed By: #### B HCG #### [address] [place], [place] [id number] [facility] Assistant: Israel Valiente MD MCHC (RBC) [Mass/Vol] 35.5 g/dL High 28.4-34.8 [facility] Comment on above: Performed By: #### B HCG #### [facility] [address] [place] [address] [employer] [facility] Assistant: Israel Valiente MD MCV (RBC) [Entitic vol] 89.2 fL Normal 82.6-102.9 [facility] Comment on above: Performed By: #### B HCG #### [facility] [address] [place] [address] Dr. [place], [place] [phone] [employer] [facility] Assistant: Israel Valiente MD NRBC Automated 0.0 per 100 WBC Normal 0.0 [facility] Comment on above: Performed By: #### B HCG #### [facility] [address] [place], [place] [phone] [employer] Laboratory Assistant: Israel Valiente MD Platelet mean volume (Bld) [Entitic vol] 10.3 fL Normal 8.1-13.5 [facility] Comment on above: Performed By: #### B HCG #### [facility] [address] [place] [address] [employer] [facility] Assistant: Israel Valiente MD Platelets (Bld) [#/Vol] 278 10*3/uL Normal 138-453 [facility] Comment on above: Performed By: #### B HCG #### [facility] [address] [place], [place] [phone] [employer] Laboratory Assistant: Israel Valiente MD RBC (Bld) [#/Vol] 4.07 10*6/uL Normal 3.95-5.11 [facility] Comment on above: Performed By: #### B HCG #### [address] [place], [place] [phone] [employer] [facility] Assistant: Israel Valiente MD WBC (Bld) [#/Vol] 9.0 10*3/uL Normal 3.5-11.3 [facility] Comment on above: Performed By: #### B HCG #### [facility] [address] [place], [place] [phone] [employer] [facility] Assistant: Israel Valiente MD Comp Metabolic Profon 2023 Albumin [Mass/Vol] 3.8 g/dL Normal 3.5-5.2 [facility] Comment on above: Performed By: #### B HCG #### [facility] [address] [place], [place] [phone] [employer] [facility] Assistant: Israel Valiente MD Albumin/Glob Ratio 1.5 Normal 1.0-2.5 [facility] Comment on above: Performed By: #### B HCG #### [facility] [address] [place], [place] [phone] [employer] Assistant: Israel Valiente MD Alkaline Phos 40 U/L Normal 35-104 [facility] Comment on above: Performed By: #### B HCG #### [facility] [address] [place], [place] [phone] [employer] [facility] Assistant: Israel Valiente MD ALT [Catalytic activity/Vol] 22 U/L Normal 5-33 [facility] Comment on above: Performed By: #### B HCG #### [facility] [address] [place], [place] [phone] [employer] Assistant: Israel Valiente MD Anion gap [Moles/Vol] 11 mmol/L Normal 9-17 [facility] Comment on above: Performed By: #### B HCG #### [facility] [address] [place], [place] [phone] [employer] [facility] Assistant: Israel Valiente MD AST [Catalytic activity/Vol] 12 U/L Normal <32 [facility] Comment on above: Performed By: #### B HCG #### [facility] [address] [place], [place] [phone] [employer] Laboratory Assistant: Israel Valiente MD Bilirubin [Mass/Vol] 0.3 mg/dL Normal 0.3-1.2 [facility] [place] [facility] Comment on above: Performed By: #### B HCG #### [facility] [address] [place], [place] [phone] [employer] Laboratory Assistant: Israel Valiente MD BUN/CRE Ratio 15 Normal 9-20 [facility] Comment on above: Performed By: #### B HCG #### [facility] [address] [place], [place] [phone] [employer] Laboratory Assistant: Israel Valiente MD Calcium [Mass/Vol] 9.2 mg/dL Normal 8.6-10.4 [facility] Comment on above: Performed By: #### B HCG #### [facility] [address] [place], [place] [phone] [employer] Laboratory Assistant: Israel Valiente MD Chloride [Moles/Vol] 107 mmol/L Normal 98-107 [facility] Comment on above: Performed By: #### B HCG #### [facility] [address] [place] [address] [employer] Assistant: Israel Valiente MD CO2 [Moles/Vol] 22 mmol/L Normal 20-31 [facility] Comment on above: Performed By: #### B HCG #### [facility] [address] [place] [address] [employer] Laboratory Assistant: Israel Valiente MD Creatinine [Mass/Vol] 0.4 mg/dL Low 0.5-0.9 [facility] Comment on above: Performed By: #### B HCG #### [facility] [address] [place], [place] [phone] [employer] [facility] Assistant: Israel Valiente MD GFR/1.73 sq M.predicted among non-blacks MDRD (S/P/Bld) [Vol rate/Area] mL/min/{1.73_m2} Normal >60 [facility] Comment on above: Result Comment: These results [...] secretion. Performed By: #### B HCG #### [facility] [address] [place] [address] [employer] Laboratory Assistant: Israel Valiente MD Glucose [Mass/Vol] 89 mg/dL Normal 70-99 [facility] Comment on above: Performed By: #### B HCG #### [facility] [address] [place], [place] [phone] [employer] Laboratory Assistant: Israel Valiente MD Potassium [Moles/Vol] 3.6 mmol/L Low 3.7-5.3 [facility] Comment on above: Performed By: #### B HCG #### [facility] [address] [place], [place] [phone] [employer] [facility] Assistant: Israel Valiente MD Protein [Mass/Vol] 6.4 g/dL Normal 6.4-8.3 [facility] Comment on above: Performed By: #### B HCG #### [facility] [address] [place], [place] [phone] [employer] Laboratory Assistant: Israel Valiente MD Sodium [Moles/Vol] 140 mmol/L Normal 135-144 [facility] Comment on above: Performed By: #### B HCG #### [facility] [address] [place], [place] [phone] [employer] Laboratory Assistant: Israel Valiente MD Urea nitrogen [Mass/Vol] 6 mg/dL Normal 6-20 [facility] Comment on above: Performed By: #### B HCG #### [facility] [address] [place] [address] [facility] Laboratory Assistant: Israel Valiente MD Comprehensive Metabolic Pane [facility] 10-11-2023 Albumin [Mass/Vol] 3.8 g/dL 3.5 - 5.2 g/dL [facility] Albumin/Globulin [Mass ratio] 1.5 {ratio} 1.0 - 2.5 [facility] ALP [Catalytic activity/Vol] 40 U/L 35 - 104 U/L [facility] ALT [Catalytic activity/Vol] 22 U/L 5 - 33 U/L [facility] Anion gap [Moles/Vol] 11 mmol/L 9 - 17 mmol/L [facility] AST [Catalytic activity/Vol] 12 U/L NINF - 32 U/L [facility] Bilirubin [Mass/Vol] 0.3 mg/dL 0.3 - 1.2 mg/dL [facility] Calcium [Mass/Vol] 9.2 mg/dL 8.6 - 10. 4 mg/dL [facility] Chloride [Moles/Vol] 107 mmol/L 98 - 107 mmol/L [facility] CO2 [Moles/Vol] 22 mmol/L 20 - 31 mmol/L [facility] Creatinine [Mass/Vol] 0.4 mg/dL Low 0.5 - 0.9 mg/dL [facility] Est, Glomihir Filt Rate - [facility] Comment on above: These results are not [...] [Mass/Vol] 89 mg/dL 70 - 99 mg/dL [facility] Interpretation and review of laboratory results Abnormal [facility] Potassium [Moles/Vol] 3.6 mmol/L Low 3.7 - 5.3 mmol/L [facility] Protein [Mass/Vol] 6.4 g/dL 6.4 - 8.3 g/dL [facility] Sodium [Moles/Vol] 140 mmol/L 135 - 144 mmol/L [facility] Urea nitrogen [Mass/Vol] 6 mg/dL 6 - 20 mg/dL [facility] Urea nitrogen/Creatinine [Mass ratio] 15 mg/mg 9 - 20 [facility] Chlamydia/GC DNA, Uron 09-06 Chlamydia Probe, Ur Negative Normal NEG [facility] Comment on above: Result Comment: CHLA MYDIA [...] target. Performed By: #### C YTCGP #### [id number] [place], [place] [id number] [employer] [facility] Assistant: Maurice Alejandre MD Gonorrhea Probe, Ur Negative Normal NEG [facility] Comment on above: Result Comment: NEIS SERIA [...] target. Performed By: #### C YTCGP #### [id number] [place] [address] [facility] Assistant: Maurice Alejandre MD Cult,Urineon 09-06-2023 Cult,Urine Specimen Description .CLEAN CATCH URINE Culture NO SIGNIFICANT GROWTH Report Status FINAL 09/06/2023 Normal [facility] Comment on above: Performed By: #### B HCG #### [facility] [address] [place] [address] [employer] [facility] Assistant: Israel Valiente MD Profileon T.pallidum Ab Screen Non-Reactive Normal [facility] Comment on above: Result Comment: T. pallidum antibodies are not detected. There is no serological evidence of infection with T. pallidum (early primary syphilis cannot be excluded). Retest in 2-4 weeks if syphilis is clinically suspect. Performed By: #### B HCG #### [facility] [address] [place] [address] [employer] [facility] Assistant: Israel Valiente MD Hep B Surf Ag Non-Reactive Normal [facility] Comment on above: Performed By: #### B HCG #### [facility] [address] [place] [address] [employer] Laboratory Assistant: Israel Valiente MD Rubella Ab, IgG 24.7 IU/mL [facility] Comment on above: Result Comment: <10 NON REACTIVE Negative for Anti-Rubella IgG >=10 REACTIVE Positive for Anti Rubella IgG The presence of IgG antibody to Rubella virus is an indication of previous exposure either by prior infection or vaccination. Performed By: #### B HCG #### [facility] [address] [place] [address] [employer] [facility] Assistant: Israel Valiente MD Glucose [place] 50gon 4818 Glucose [Mass/Vol] 86 mg/dL Normal 70-135 [facility] Comment on above: Performed By: #### B HCG #### [facility] [address] [place] [address] [facility] Assistant: Israel Valiente MD Glu Administered via Glucola [facility] Comment on above: Performed By: #### B HCG #### [facility] [address] [place] [address] [facility] Assistant: Israel Valiente MD HIV Ag/Abon 4054 HIV Ag/Ab Non-Reactive Normal [facility] Comment on above: Result Comment: No l aboratory evidence of HIV infection. If acute HIV infection is suspected, consider testing for HIV-1 RNA. Performed By: #### B HCG #### [facility] [address] [place] [address] [place] [address] [employer] Laboratory Assistant: Israel Valiente MD Hep C Abon 09-04-5861 Hep C Ab Non-Reactive Normal [facility] Comment on above: Result Comment: The [...] PCR. Performed By: #### B HCG #### [facility] [address] [place] [address] Dr. [place], [place] [address] [employer] Laboratory Assistant: Israel Valiente MD Profileon 4 Abs. Basophil 0.05 k/uL Normal 0.00-0.20 [facility] Comment on above: Performed By: #### B HCG #### [address] [place], [facility]83 [facility] Laboratory Assistant: Israel Valiente MD Abs.Imm.Granulocyte 0.17 k/uL Normal 0.00-0.30 [facility] Comment on above: Performed By: #### B HCG #### [address] [place] [address] [employer] Laboratory Assistant: Israel Valiente MD Abs.Neutrophil (Seg) 7.42 k/uL Normal 1.50-8.10 [facility] [place] [facility] Comment on above: Performed By: #### B HCG #### [address] [place], [place] [address] [facility] Laboratory Assistant: Israel Valiente MD Basophils/100 WBC (Bld) 0 % Normal 0-2 [facility] Comment on above: Performed By: #### B HCG #### [address] [place], [facility]83 [facility] Laboratory Assistant: Israel Valiente MD Eosinophils (Bld) [#/Vol] 0.27 10*3/uL Normal 0.00-0.44 [facility] Comment on above: Performed By: #### B HCG #### [facility] [address] [place] [address] Dr. [place], [facility]83 [facility] Laboratory Assistant: Israel Valiente MD Eosinophils/100 WBC (Bld) 2 % Normal 1-4 [facility] Comment on above: Performed By: #### B HCG #### [address] [place], [place] 1344183 [facility] Assistant: Israel Valiente MD Erythrocyte distribution width (RBC) [Ratio] 12.4 % Normal 11.8-14.4 [facility] Comment on above: Performed By: #### B HCG #### [facility] [address] [place], [place] [phone] [employer] Laboratory Assistant: Israel Valiente MD Hematocrit (Bld) [Volume fraction] 37.8 % Normal 36.3-47.1 [facility] Comment on above: Performed By: #### B HCG #### [facility] [address] [place], [place] [phone] [employer] Laboratory Assistant: Israel Valiente MD Hemoglobin (Bld) [Mass/Vol] 12.9 g/dL Normal 11.9-15.1 [facility] Comment on above: Performed By: #### B HCG #### [facility] [address] [place] [address] [place] [address] [employer] Laboratory Assistant: Israel Valiente MD Immature granulocytes/100 WBC (Bld) 1 % High 0 [facility] Comment on above: Performed By: #### B HCG #### [facility] [address] [place], [place] [phone] [employer] Laboratory Assistant: Israel Valiente MD Lymphocytes (Bld) [#/Vol] 3.42 10*3/uL Normal 1.10-3.70 [facility] Comment on above: Performed By: #### B HCG #### [facility] [address] [place], [facility]83 [facility] Laboratory Assistant: Israel Valiente MD Lymphocytes/100 WBC (Bld) 28 % Normal 24-43 [facility] Comment on above: Performed By: #### B HCG #### [facility] [address] [place] [address] [place] [address] [employer] Laboratory Assistant: Israel Valiente MD MCH (RBC) [Entitic mass] 31.9 pg Normal 25.2-33.5 [facility] Comment on above: Performed By: #### B HCG #### [facility] [address] [place], [place] [phone] [employer] Laboratory Assistant: Israel Valiente MD MCHC (RBC) [Mass/Vol] 34.1 g/dL Normal 28.4-34.8 [facility] Comment on above: Performed By: #### B HCG #### [facility] [address] [place], [place] [phone] [employer] Laboratory Assistant: Israel Valiente MD MCV (RBC) [Entitic vol] 93.6 fL Normal 82.6-102.9 [facility] Comment on above: Performed By: #### B HCG #### [facility] [address] [place], [place] 1776183 [employer] Laboratory Assistant: Israel Valiente MD Monocytes (Bld) [#/Vol] 0.73 10*3/uL Normal 0.10-1.20 [facility] Comment on above: Performed By: #### B HCG #### [facility] [address] [place] [address] [place]. [place], [place] [phone] [employer] Laboratory Assistant: Israel Valiente MD Monocytes/100 WBC (Bld) 6 % Normal 3-12 [facility] Comment on above: Performed By: #### B HCG #### [facility] [address] [place], [place] 1343483 [employer] Laboratory Assistant: Israel Valiente MD Neutrophil (Seg) 63 % Normal 36-65 [facility] Comment on above: Performed By: #### B HCG #### [facility] [address] [place], [place] [phone] [facility] Laboratory Assistant: Israel Valiente MD NRBC Automated 0.0 per 100 WBC Normal 0.0 [facility] Comment on above: Performed By: #### B HCG #### [facility] [address] [place], [place] [phone] [employer] Laboratory Assistant: Israel Valiente MD Platelet mean volume (Bld) [Entitic vol] 10.7 fL Normal 8.1-13.5 [facility] Comment on above: Performed By: #### B HCG #### [facility] [address] [place], [place] 6746083 [employer] Laboratory Assistant: Israel Valiente MD Platelets (Bld) [#/Vol] 277 10*3/uL Normal 138-453 [facility] Comment on above: Performed By: #### B HCG #### [facility] [address] [place] [phone] [employer] Laboratory Assistant: Israel Valiente MD RBC (Bld) [#/Vol] 4.04 10*6/uL Normal 3.95-5.11 [facility] Comment on above: Performed By: #### B HCG #### [address] [place] [id number] [facility] Laboratory Assistant: Israel Valiente MD WBC (Bld) [#/Vol] 12.1 10*3/uL High 3.5-11.3 [facility] Comment on above: Performed By: #### B HCG #### [address] [place] [id number] [facility] Laboratory Assistant: Israel Valiente MD Type + Scrnon 09-04 Type + Scrn Negative Normal [facility] [place] [facility] Comment on above: Performed By: #### P RTYS #### [address] [place], [facility]83 [facility] Assistant: Israel Valiente MD US OB LESS THAN [...] Lazaro Tucker MD 09/05/23 Final result Normal [facility] HCG, Quanton 08-27-2023 HCG, Quant 15086.0 mIU/mL High <5 [facility] Comment on above: Result Comment: Non-preg premeno <=5 Postmeno <=8 Male <=3 If HCG results do not concur with clinical observations, additional testing to confirm results is recommended. Performed By: #### B HCG #### [facility] [address] [place] [address] [employer] Laboratory Assistant: Israel Valiente MD US NON OB TRANSVAGINALon US NON OB TRANSVAGINAL UTERUS:anteverted, homogeneous echo pattern; wnl ENDO:7mm in thickness RT. OVARY:seen, follicles visualized LT. OVARY:seen, dominant follicle felix- 1.6cm x 1.5cm x 1.2cm Interpreted by: Yeimi Kat DO Signed by: Yeimi Kat DO 03/08/23 Final result Normal [facility] Estradiolon 03-03-2023 Estradiol 72.0 pg/mL Normal [facility] Comment on above: Result Comment: FEMALES: Normally menstruating Luteal phase 60-232 Follicular phase 31-90 Midcycle phase 60-533 Postmenopausal (untreated) <138 Fulvestrant treatment will show an increased estradiol concentration with this methodology. Alternate methodologies are available upon request. Performed By: #### T EST, HIVCMB, PROG, TREP, AHCV, PROL, E2, FSH #### [address] [place] [address] [employer] Laboratory Assistant: Maurice Alejandre MD Follicle Stim. Hormon 2022 Follicle Stim. Horm 5.6 mIU/mL Normal [facility] Comment on above: Result Comment: Refe rence Range: Male: 1.5-12.4 Ovulating Female: Follicular Phase 3.5-12.5 Ovulation Phase 4.7-21.5 Luteal Phase 1.7-7.7 Postmenopausal Female: 25.8-134.8 Performed By: #### T EST, HIVCMB, PROG, TREP, AHCV, PROL, E2, FSH #### [address] [place], [place] 6979808 [employer] Laboratory Assistant: Maurice Alejandre MD Progesteroneon 03-03-2023 Progesterone 0.27 ng/mL Normal [facility] Comment on above: Result Comment: Female: Follicular phase <0.19 ng/mL Ovulation phase 0.06-4.14 ng/mL Luteal phase 4.11-14.5 ng/mL Postmenopausal <0.13 ng/mL Performed By: #### B HCG #### [facility] [address] [place] [address] [employer] Laboratory Assistant: Israel Valiente MD Chlamydia/GC DNA, TPon 03-02 Chlamydia Probe, TP Negative Normal NEG [facility] Comment on above: Result Comment: CHLA MYDIA [...] target. Performed By: #### C YTCGP #### [address] [id number] [employer] Laboratory Assistant: Maurice Alejandre MD Gonorrhea Probe, TP Negative Normal NEG [facility] Comment on above: Result Comment: NEIS SERIA [...] target. Performed By: #### C YTCGP #### [facility] [address] [place], [place] [id number] [employer] Laboratory Assistant: Maurice Alejandre MD HIV Ag/Abon 03-02-2023 HIV Ag/Ab Non-Reactive Normal NR [facility] Comment on above: Result Comment: No l aboratory evidence of HIV infection. If acute HIV infection is suspected, consider testing for HIV-1 RNA. Performed By: #### T EST, HIVCMB, PROG, TREP, AHCV, PROL, E2, FSH #### [address] [id number] [employer] [facility] Assistant: Maurice Alejandre MD Prolactinon 03-02-2023 Prolactin 6.60 ng/mL Normal 4.79-23.3 [facility] Comment on above: Result Comment: The presence of macroprolactin may cause interference in female patients with various endocrinological diseases or during . Performed By: #### T EST, HIVCMB, PROG, TREP, AHCV, PROL, E2, FSH #### [address] [id number] [employer] [facility] Assistant: Maurice Alejandre MD T.pallidum Ab Screenon 03-02 T.pallidum Ab Screen Non-Reactive Normal NR [facility] Comment on above: Result Comment: T. pallidum antibodies are not detected. There is no serological evidence of infection with T. pallidum (early primary syphilis cannot be excluded). Retest in 2-4 weeks if syphilis is clinically suspect. Performed By: #### T EST, HIVCMB, PROG, TREP, AHCV, PROL, E2, FSH #### [address] [id number] [employer] [facility] Assistant: Maurice Alejandre MD Testosterone, Totalon 2022 Testosterone [Mass/Vol] 50 ng/dL Normal 20-70 [facility] Comment on above: Performed By: #### T EST, HIVCMB, PROG, TREP, AHCV, PROL, E2, FSH #### [address] [id number] [facility] Assistant: Maurice Alejandre MD Cytology Reporton 03-01-2023 Cytology report Cyto stain.thin prep Doc (Cvx/Vag) (NOTE) Path Number: [id number] DIAGNOSIS Imaged ThinPrep Pap - Cervical (1 [...] neoplasm of cervix LMP: 02/09/2023 Processing Lab: [address] [address] Interpretation performed at [address] [phone] The Pap smear is a screening test primarily for squamous epithelial lesions, which is subject to both false negative and false positive results. Your patient should be reminded to consult you immediately if she experiences any suspicious signs or symptoms, regardless of her Pap smear result. GYNECOLOGIC CYTOLOGY REPORT Patient Name: МАРИНА SAMSON [facility] Rec: [id number] [facility] ANATOMIC PATHOLOGY [address] [place] [address]. [place], [place] [address] Normal [facility] HCG, Quanton 03-01-2023 HCG, Quant <1.0 Normal <5 [facility] Comment on above: Result Comment: Non-preg premeno <=5 Postmeno <=8 Male <=3 If HCG results do not concur with clinical observations, additional testing to confirm results is recommended. Performed By: #### B HCG #### [facility] [address] [place] [address] [facility] Assistant: Israel Valiente MD Hep C Abon 03-01-2023 Hep C Ab Non-Reactive Normal NR [facility] Comment on above: Result Comment: The [...] PROG, TREP, AHCV, PROL, E2, FSH #### [facility] [address] [place] [address] [facility] Assistant: Maurice Alejandre MD TSH w/reflex to FT4on 2022 Thyroid Stim. Horm. 0.61 uIU/mL Normal 0.30-5.00 [facility] [place] [facility] Comment on above: Performed By: #### B HCG #### [facility] [address] [place] [address] [facility] Assistant: Israel Valiente MD CT CSPINE WO CONon [...] JOZEF SANTAMARIA Date: 2022-06-03 00:42 Normal [facility] CT FACIAL BONES WO CONon CT FACIAL [...] by: JOZEF SANTAMARIA Date: 2022-06-03 00:25 Normal [facility] CT HEAD WO CONon 06-03-2022 CT HEAD [...] by: JOZEF SANTAMARIA Date: 2022-06-03 00:20 Normal [facility] Vital Signs Date Time Vital Sign Value Performing Clinician Katy haro 10-11-2023 11:52-0400 Diastolic blood pressure 56 mm[Hg] [facility] 03 [facility] 10-11-2023 11:52-0400 Heart rate 66 /min [facility] 03 [facility] [place] [employer] 10-11-2023 11:52-0400 Respiratory rate 18 /min [facility] 03 [facility] 10-11-2023 11:52-0400 Systolic blood pressure 107 mm[Hg] [facility] 03 [facility] 10-11-2023 10:15-0400 Body temperature 97.39 [degF] [facility] 03 [facility] Encounters Encounter Date Encounter Type Care Provider Facility Start: 10-31-2023 End: 11-02-2023 [facility] Start: 10-15-2023 End: 10-15-2023 [facility] Start: 10-11-2023 End: 10-11-2023 ambulatory [facility] Start: 10-11-2023 End: 10-11-2023 Subsequent hospital visit by physician [facility] Start: 09-05-2023 End: 09-05-2023 ambulatory [facility] Start: 09-05-2023 End: 09-05-2023 [facility] Start[facility] 08-27-2023 End: 08-27-2023 ambulatory [facility] Start: 03-01-2023 End: 03-01-2023 ambulatory [facility] Start: 03-01-2023 [facility] Start: 03-01-2023 End: 03-01-2023 ambulatory [facility] Start: 06-03-2022 End: 06-03-2022 ambulatory VOLODYMYR ARGELIA Facility:H1 Procedures Date Procedure Procedure Detail Performing Clinician Start: 10-11-2023 Comprehensive metabo lic panel Sid Trinidad ROSA MARIA - MELANIEM Work Phone: Start: 03-01-2023 Microscopic observat ion [Identifier] in Cervix by Cyto stain [facility] 03 Plan of Treatment Date Care Activity Detail Author Start: 03-01-2026 Screening for malign ant neoplasm of cervix Pap [facility] Start: 08-26-2024 Depression Monitoring Depression Mon [facility] Start: 02-20-2024 Respiratory Syncytia l Virus (RSV) or age 60 yrs+ (1 - Risk 1-dose series) Respiratory Syncytial Virus (RSV) or age 60 yrs+ (1 - Risk 1-dose series) [facility] Start: 02-07-2024 End: 02-07-2024 Patient encounter procedure 02/07/2024 9:30 AM EDT Routine [facility] Part of [address] [place] [address] Sid Trinidad, ROSA MARIA - YUVAL [address] [place] [address] [address] [place] [address] ob / 30 week / tdap [facility] Comment on above: ob / 30 week / tdap Start: 02-07-2024 End: 02-07-2024 Professional / ancillary services management 02/07/2024 9:00 AM EDT Ancillary Procedure [facility] Part [address] [place] [address] ob / 30 week [facility] Comment on above: ob / 30 week Start: 12-06-2023 Influenza vaccination Flu vacc ine (Season Ended) [facility] Start: 11-29-2023 End: 11-29-2023 Patient encounter procedure 11/29/2023 10:30 AM EDT Routine [facility] [address] [place] [address] Sid Trinidad, ROSA MARIA - YUVAL [address] [place] [address] [address] [place] [address] ob / 20 week [facility] Comment on above: ob / 20 week Start: 11-29-2023 End: 11-29-2023 Professional / ancillary services management 11/29/2023 9:30 AM EDT Ancillary Procedure [facility] [address] [place] [address] ob / 20 week [facility] Comment on above: ob / 20 week Start: 10-29-2023 End: 10-29-2023 Patient encounter procedure 10/29/2023 5:45 PM EDT Routine [facility] [address] [address] Sid Trinidad, SEIS[employer]GR[employer] CHIEF - YUVAL [address] [place] [address] ob [facility] Comment on above: ob Start: 10-18-2023 End: 10-18-2023 Patient encounter procedure 10/18/2023 4:30 PM EDT Routine [place] [id number] ob / weight check KENDRICK Pt [facility] Comment on above: ob / weight check KENDRICK Pt Start: 2015 DTaP/Tdap/Td vaccine (1 - Tdap) DTaP/Tdap/Td vaccine (1 - Tdap) [facility] Start: 2002 Pneumococcal 0-64 ye ars Vaccine (1 of 2 - PCV) Pneumococcal 0-64 years Vaccine (1 of 2 - PCV) [facility] Start: 1997 Varicella vaccine (1 of 2 - 2-dose childhood series) Varicella vaccine (1 of 2 - 2-dose childhood series) [facility] Start: 1996 COVID-19 Vaccine (#1) COVID-19 Vacci ne (#1) [facility] Start: 1996 Hepatitis B vaccine (1 of 3 - 3-dose series) Hepatitis B vaccine (1 of 3 - 3-dose series) [facility] Payers Date Payer Category Payer Medicaid [id number]. [id number] 2022 Unknown [id number] 1996 Unknown [id number] [id number] 1996 Unknown [id number] 2.16. [id number] 1996 Unknown [id number] 2.16.8 [id number] 1996 Unknown [id number] 2.16.8 [id number] 1996 Unknown [id number] 2.16.8 [id number] 1996 Unknown [id number] 2.16.8 [id number] 1996 Unknown [id number] 2.16.8 [id number] Social History Date Type Detail Facility Start: 02-15-2023 [facility] History of tobacco use Cigarette Smoker B ON [facility] Start: 10-11-2023 Alcohol intake Ex-drinker (finding) [facility] Start: 03-01-2023 End: 10-11-2023 History of Social function [facility] [facility] Start: 03-01-2023 End: 10-11-2023 Tobacco use panel [facility] How hard is it for y ou to pay for the very basics like food, housing, medical care, and heating Not hard at all [facility] (I/We) worried wheth er (my/our) food would run out before (I/we) got money to buy more. Never true [facility] At any time in the p ast 12 months, were you homeless or living in prison [including now]? No [employer] Start: 07-25-2023 Rep Start: 1995 Sex Assigned At Not on file B ON [facility] Summary Purpose Family History No Family History Records FoundNo Family History Records FoundNo Family History Records Found Advance Directives No Advanced Directives Records FoundNo Advanced Directives Records FoundNo Advanced Directives Records Found Additional Source Comments INFORMATION SOURCE (unrecogn ized section and content) DATE CREATED AUTHOR 06/05/2022 [facility] DATE CREATED AUTHOR AUTHOR'S ORGANIZ ATION 10/30/2023 [facility] DATE CREATED AUTHOR AUTHOR'S ORGANIZ ATION 11/04/2023 [facility] Care Teams (unrecognized sec tion and content) Software Client Architect Relationship Specialty Start Date End Date Bianka Pickard APRN - BUDGET AND POLICY ANALYST PCP - General 05/15/22 FOR RECORDS PERTAINING [...] BE BASED ON THE PRIMARY CLINICAL RECORDS. [employer] [facility]. provides no warranty or guarantee of the accuracy or completeness of information in this document.
[2023-12-08 17:30] VITALS: BP 107/55; PULSE 87
[2023-12-08 17:35] VITALS: TEMP 36.3
== END 2023-12-08 18:30 | disposition home or self-care (01) ==
PROVIDERS: Admitting Provider Obstetrics & Gynecology; Visit Provider Obstetrics & Gynecology
DX: O26.892 Other specified pregnancy related conditions, second trimester (principal); K08.89 Other specified disorders of teeth and supporting structures; R10.9 Unspecified abdominal pain; Z3A.21 21 weeks gestation of pregnancy
CPT/HCPCS: 59025; 99283; G0378; G0379

== ENCOUNTER 2024-03-11 11:15 | Emergency (ER) | payer MEDICAID, SELFPAY ==
[2024-03-11] VITALS (18 sets, daily range): BP systolic 87–125; BP diastolic 66–83; PULSE 95–110; TEMP 36.7; O2SAT 95–100; BMI 39.9
--- OUTSIDE RECORDS SUMMARY | 2024-03-11 11:27 | XMS_ITS | CCD ---
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 Receptionist: Israel Valiente MD Basophils/100 WBC (Bld) 0 % Normal 0-2 [facility] Comment on above: Performed By: #### P RENAT #### [address] [address] Hr Receptionist: Maurice Alejandre MD [facility] [address] [place] [address] Dr[place] [phone] Hr Receptionist: Israel Valiente MD Eosinophils (Bld) [#/Vol] 0.27 10*3/uL Normal 0.00-0.44 [facility] Comment on above: Performed By: #### P RENAT #### [address] [address] Hr Receptionist: Maurice Alejandre MD [facility] [address] [place] [address] Dr. [place] [phone] Hr Receptionist: Israel Valiente MD Eosinophils/100 WBC (Bld) 2 % Normal 1-4 [facility] Comment on above: Performed By: #### P RENAT #### [address] [address] Hr Receptionist: Maurice Alejandre MD [address] [place] [address] Hr Receptionist: Israel Valiente MD Erythrocyte distribution width (RBC) [Ratio] 12.4 % Normal 11.8-14.4 [facility] Comment on above: Performed By: #### P RENAT #### [address] [address] Hr Receptionist: Maurice Alejandre MD [address] [place] [address] Hr Receptionist: Israel Valiente MD Hematocrit (Bld) [Volume fraction] 37.8 % Normal 36.3-47.1 [facility] Comment on above: Performed By: #### P RENAT #### [address] [address] Hr Receptionist: Maurice Alejandre MD [address] [place] [address]83 Hr Receptionist: Israel Valiente MD Hemoglobin (Bld) [Mass/Vol] 12.9 g/dL Normal 11.9-15.1 [facility] Comment on above: Performed By: #### P RENAT #### [place] [address] [place] [address] Hr Receptionist: Maurice Alejandre MD [address] [place], [place] [address] Hr Receptionist: Israel Valiente MD Immature granulocytes/100 WBC (Bld) 1 % High 0 [facility] Comment on above: Performed By: #### P RENAT #### [address] [address] Hr Receptionist: Maurice Alejandre MD [address] [place] [phone] Hr Receptionist: Israel Valiente MD Lymphocytes (Bld) [#/Vol] 3.42 10*3/uL Normal 1.10-3.70 [facility] Comment on above: Performed By: #### P RENAT #### [address] [address] Hr Receptionist: Maurice Alejandre MD [address] [place] [address] Hr Receptionist: Israel Valiente MD Lymphocytes/100 WBC (Bld) 28 % Normal 24-43 [facility] Comment on above: Performed By: #### P RENAT #### [address] [address] Hr Receptionist: Maurice Alejandre MD [address] [place] [phone] Hr Receptionist: Israel Valiente MD MCH (RBC) [Entitic mass] 31.9 pg Normal 25.2-33.5 [facility] Comment on above: Performed By: #### P RENAT #### [address] [address] Hr Receptionist: Maurice Alejandre MD [address] [place], [place] [address] Hr Receptionist: Israel Valiente MD MCHC (RBC) [Mass/Vol] 34.1 g/dL Normal 28.4-34.8 [facility] Comment on above: Performed By: #### P RENAT #### [address] [address] Hr Receptionist: Maurice Alejandre MD [address] [place] [phone] Hr Receptionist: Israel Valiente MD MCV (RBC) [Entitic vol] 93.6 fL Normal 82.6-102.9 [facility] Comment on above: Performed By: #### P RENAT #### [address] [address] Hr Receptionist: Maurice Alejandre MD [address] [place] [address] Hr Receptionist: Israel Valiente MD Monocytes (Bld) [#/Vol] 0.73 10*3/uL Normal 0.10-1.20 [facility] Comment on above: Performed By: #### P RENAT #### [address] [address] Hr Receptionist: Maurice Alejandre MD [address] [place] [address] Hr Receptionist: Israel Valiente MD Monocytes/100 WBC (Bld) 6 % Normal 3-12 [facility] Comment on above: Performed By: #### P RENAT #### [address] [address] Hr Receptionist: Maurice Alejandre MD [address] [place] [phone] Hr Receptionist: Israel Valiente MD Neutrophil (Seg) 63 % Normal 36-65 [facility] Comment on above: Performed By: #### P RENAT #### [address] [place] [address] Hr Receptionist: Maurice Alejandre MD [address] [place] [phone] Hr Receptionist: Israel Valiente MD NRBC Automated 0.0 per 100 WBC Normal 0.0 [facility] Comment on above: Performed By: #### P RENAT #### [address] [address] Hr Receptionist: Maurice Alejandre MD [address] [place] [id number] Hr Receptionist: Israel Valiente MD Platelet mean volume (Bld) [Entitic vol] 10.7 fL Normal 8.1-13.5 [facility] Comment on above: Performed By: #### P RENAT #### [address] [address] Hr Receptionist: Maurice Alejandre MD [address] [place] [phone] Hr Receptionist: Israel Valiente MD Platelets (Bld) [#/Vol] 277 10*3/uL Normal 138-453 [facility] Comment on above: Performed By: #### P RENAT #### [address] [address] Hr Receptionist: Maurice Alejandre MD [address] [place] [id number] Hr Receptionist: Israel Valiente MD RBC (Bld) [#/Vol] 4.04 10*6/uL Normal 3.95-5.11 [facility] Comment on above: Performed By: #### P RENAT #### [address] [address] Hr Receptionist: Maurice Alejandre MD [address] [place] [address] Hr Receptionist: Israel Valiente MD WBC (Bld) [#/Vol] 12.1 10*3/uL High 3.5-11.3 [facility] Comment on above: Performed By: #### P RENAT #### [facility] [address] [place] [address] Hr Receptionist: Maurice Alejandre MD [facility] [address] [place] [address] Hr Receptionist: Israel Valiente MD Type + Scrnon 09-04 Type + Scrn Negative Normal [facility] Comment on above: Performed By: #### P RTYS #### [address] [place] [address] Hr Receptionist: Israel Valiente MD US OB LESS THAN [...] Lazaro Tucker MD 09/05/23 Final result Normal [facility] HCG, Quanton 08-27-2023 HCG, Quant 72144.0 mIU/mL High <5 [facility] Comment on above: Result Comment: Non-preg premeno <=5 Postmeno <=8 Male <=3 If HCG results do not concur with clinical observations, additional testing to confirm results is recommended. Performed By: #### B HCG #### [facility] [address] [place] [address] [place] [address] Hr Receptionist: Israel Valiente MD CT CSPINE WO CONon [...] by: JOZEF SANTAMARIA Date: 2022-06-03 00:[address] [facility] [address] FACIAL BONES WO CONon CT [...] by: JOZEF SANTAMARIA Date: 2022-06-03 00:[address] [facility] [address] HEAD WO CONon 06-03-2022 CT [...] by: JOZEF SANTAMARIA Date: 2022-06-03 00:20 Normal [facility] Vital Signs Date Time Vital Sign Value Performing Clinician Faci lity 10-11-2023 11:52-0400 Diastolic blood pressure 56 mm[Hg] [facility] 03 [facility] [employer] 10-11-2023 11:52-0400 Heart rate 66 /min [facility] 03 [employer] 10-11-2023 11:52-0400 Respiratory rate 18 /min [facility] 03 [employer] 10-11-2023 11:52-0400 Systolic blood pressure 107 mm[Hg] [facility] 03 [employer] 10-11-2023 10:15-0400 Body temperature 97.39 [degF] [facility] 03 [facility] [employer] Encounters Encounter Date Encounter Type Care Provider Facility Start: 03-10-2024 End: 03-10-2024 [facility] Start: 03-03-2024 End: 03-03-2024 ambulatory BIANKA [place] [facility] Start: 02-29-2024 End: 02-29-2024 ambulatory [facility] Start: 02-04-2024 End: 02-04-2024 ambulatory SID DYSON [facility] Start: 01-15-2024 [facility] Start: 01-14-2024 End: 01-14-2024 ambulatory [facility]A FIN[facility] Start: 01-14-2024 End: 01-14-2024 Subsequent hospital visit by physician Bianka Watt NP Work Phone: [facility] Laboratory Comment on above: 26 weeks gestation o f Start: 01-14-2024 End: 01-14-2024 ambulatory [facility] Start: 12-11-2023 ambulatory [facility] Start: 11-29-2023 End: 11-29-2023 ambulatory [facility] Start: 10-31-2023 End: 11-02-2023 ambulatory [facility] Start: 10-15-2023 End: 10-15-2023 ambulatory [facility] Start: 10-11-2023 End: 10-11-2023 ambulatory [facility] Start: 10-11-2023 End: 10-11-2023 Subsequent hospital visit by physician [facility] Treatment 03 [facility] Specialty Clinic (MOB) Start: 09-05-2023 End: 09-05-2023 ambulatory [facility] Start: 09-05-2023 End: 09-05-2023 [facility] Start: 08-27-2023 End: 08-27-2023 ambulatory [facility] Start: 06-03-2022 End: 06-03-2022 ambulatory VOLODYMYR ARGELIA Facility: Procedures Date Procedure Procedure Detail Performing Clinician Start: 01-14-[address] gtt 3 specimens Sid Dyson ROSA MARIA Watt CNM Work Phone: Start: 10-11-2023 Comprehensive metabo lic panel Sid Dyson ROSA MARIA Watt CNM Work Phone: Start: 03-01-2023 Microscopic observat ion [Identifier] in Cervix by Cyto stain [facility] Plan of Treatment Date Care Activity Detail Author Start: 03-01-2026 Screening for malign ant neoplasm of cervix Pap smear [facility] Start: 08-26-2024 [facility] Start: 02-20-2024 Respiratory Syncytia l Virus (RSV) or age 60 yrs+ (1 - Risk 1-dose series) Respiratory Syncytial Virus (RSV) or age 60 yrs+ (1 - Risk 1-dose series) [facility] Start: 02-07-2024 End: 02-07-2024 Patient encounter procedure 02/07/2024 9:30 AM EDT Routine [facility] Part [address] [place] [id number] Sid Dyson APRN - CNM [address] [place] [address] [address] [place] [address] ob / 30 week / tdap [facility] Comment on above: ob / 30 week / tdap Start: 02-07-2024 End: 02-07-2024 Professional / ancillary services management 02/07/2024 9:00 AM EDT Ancillary Procedure [facility] [address] [place] [id number] ob / 30 week [facility] Comment on above: ob / 30 week Start: 02-04-2024 End: 02-04-2024 Patient encounter procedure 02/04/2024 5:00 PM EDT Routine [facility] Part [address] [place] [address] Sid Dyson APRN - CNM [address] [place], [place] [id number] ob / 30 week / tdap [facility] Comment on above: ob / 30 week / tdap Start: 02-04-2024 End: 02-04-2024 Professional / ancillary services management 02/04/2024 4:30 PM EDT Ancillary Procedure [facility] Part of [address] [place] [address] ob / 30 week [facility] Part [facility] Comment on above: ob / 30 week Start: 01-16-2024 Tdap Vaccine during Tdap Vaccine during [facility] Start: 01-06-2024 COVID-19 Vaccine ( season) COVID-19 Vaccine () [facility] Start: 12-06-2023 Influenza vaccination B ON [facility] Start: 11-29-2023 End: 11-29-2023 Patient encounter procedure 11/29/2023 10:30 AM EDT Routine [facility] Part of [address] [place] [address] Sid Dyson APRN - CNM [address] [place] [address] [address] [place], [id number] ob / 20 week [facility] Comment on above: ob / 20 week Start: 11-29-2023 End: 11-29-2023 Professional / ancillary services management 11/29/2023 9:30 AM EDT Ancillary Procedure [facility] Part of [address] [place] [address] ob / 20 week [facility] Comment on above: ob / 20 week Start: 10-29-2023 End: 10-29-2023 Patient encounter procedure 10/29/2023 5:45 PM EDT Routine [facility] Part of [address] [place] [address] Sid Dyson APRN - CNM [address] [place] [address] 202 [place] [address] ob [facility] Comment on above: ob Start: 10-18-2023 End: 10-18-2023 Patient encounter procedure 10/18/2023 4:30 PM EDT Routine [facility] Part of [facility] [address] [facility] [place] [address] ob / weight check KENDRICK Pt [facility] Part [facility] Comment on above: ob / weight check KENDRICK Pt Start: 2015 DTaP/Tdap/Td vaccine (1 - Tdap) DTaP/Tdap/Td vaccine (1 - Tdap) [facility] Start: 2015 Hepatitis B vaccine (1 of 3 - 19+ 3-dose series) Hepatitis B vaccine (1 of 3 - 19+ 3-dose series) [facility] Start: 2009 Varicella vaccine (1 of 2 - 13+ 2-dose series) Varicella vaccine (1 of 2 - 13+ 2-dose series) [facility] Start: 2002 Pneumococcal 0-64 ye ars Vaccine (1 of 2 - PCV) Pneumococcal 0-64 years Vaccine (1 of 2 - PCV) [facility] Start: 1997 Varicella vaccine (1 of 2 - 2-dose childhood series) Varicella vaccine (1 of 2 - 2-dose childhood series) [facility] Start: 1996 COVID-19 Vaccine (#1) COVID-19 Vacci ne (#1) [facility] Start: 1996 Hepatitis B vaccine (1 of 3 - 3-dose series) Hepatitis B vaccine (1 of 3 - 3-dose series) [facility] Payers Date Payer Category Payer Medicaid [id number] 1. [id number] 1996 Unknown [id number] 2.16.84 [id number] 1996 Unknown [id number] 2.16.8 [id number] 1996 Unknown [id number] 2.16.8 [id number] 1996 Unknown [id number] 2.16.8 [id number] 1996 Unknown [id number] 2.16.8 [id number] 1996 Unknown [id number] 2.16.8 [id number] 1996 Unknown [id number] 2.16.8 [id number] 1996 Unknown [id number] 2.16.8 [id number] 1996 Unknown [id number] 2.16. [id number] 1996 Unknown [id number] 2.16. [id number] 1996 Unknown [id number] 2.16. [id number] 1996 Unknown [id number] 2.16. [id number] Unknown [id number] Social History Date Type Detail Facility Start: 02-15-2023 End: 12-27-2023 Tobacco smoking status NMIS Smokes tobacco daily [facility] History of tobacco use Cigarette Smoker B ON [employer] Start: 10-11-2023 End: 01-14-2024 Alcohol intake Ex-drinker (finding) [facility] Start: 03-01-2023 End: 10-11-2023 History of Social function [facility] Start: 03-01-2023 End: 10-11-2023 Tobacco use panel [facility] How hard is it for y ou to pay for the very basics like food, housing, medical care, and heating Not hard at all [facility] (I/We) worried whekathi er (my/our) food would run out before (I/we) got money to buy more. Never true [facility] At any time in the past 12 months, were you homeless or living in fdc [including now]? No [facility] Start: 07-25-2023 ISABELA Martino [facility] Start: 1995 Sex Assigned At Not on file B ON [facility] Start: 12-27-2023 Tobacco use and exposure Smokeless tobacco non-user [facility] Evaluation note Note Date & Type Note Facility Evaluation note Diagnosis 26 weeks gestation of state, incidental documented in this encounter [facility] Summary Purpose Family History No Family History Records FoundNo Family History Records FoundNo Family History Records FoundNo Family History Records Found Advance Directives No Advanced Directives Records FoundNo Advanced Directives Records FoundNo Advanced Directives Records FoundNo Advanced Directives Records Found Additional Source Comments INFORMATION SOURCE (unrecogn ized section and content) DATE CREATED AUTHOR 06/05/2022 [facility] DATE CREATED AUTHOR AUTHOR'S ORGANIZ ATION 12/13/2023 [facility] DATE CREATED AUTHOR AUTHOR'S ORGANIZ ATION 03/02/2024 [facility] [facility] DATE CREATED AUTHOR AUTHOR'S ORGANIZ ATION 03/11/2024 [facility] Care Teams (unrecognized sec tion and content) Collating Machine Operator Relationship Specialty Start Date End Date Bianka Finley APRN - LPN RN PCP - General 05/15/22 Collating Machine Operator Relationship Specialty Start Date End Date Bianka Finley APRN - LPN RN [id number] [facility] [place] [phone] PCP - General 05/15/22 FOR RECORDS PERTAINING [...] BE BASED ON THE PRIMARY CLINICAL RECORDS. [employer] [facility]. provides no warranty or guarantee of the accuracy or completeness of information in this document.
--- NOTE | 2024-03-11 11:32 | ECG_ITS ---
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
--- NOTE | 2024-03-11 11:39 | ED_ITS ---
HPI - Syncope General Chief Complaint: Dizziness Stated Complaint: PASSING OUT, ON HEART MONITOR, 38 WKS Time Seen by Provider: 03/11/24 11:17 History of Present Illness HPI narrative: 28-year-old female to the emergency department chief complaint of syncope. Patient reports she has had 3 syncopal episodes in the last 3 days. All occurred after episodes of prolonged standing. Patient reports she had no symptoms prior. She does not believe she hit her head. She has no neck or back pain. No extremity injuries. She denies any vision changes, numbness, weakness, tingling. She has no chest pain or shortness of breath. There is been no palpitations. No diarrhea or vomiting. 2 events occurred yesterday while they were cleaning a deer. She also vomited during this time. She does have a history of syncopal episodes prior to this that are similar, they just have not occurred in this rapid succession before. She is currently 38 weeks . She is following with [facility] at [facility] in [place]. She was seen at her OB yesterday and had a nonstress test which was reported as normal to her. She was also arranged to have a environmental monitoring technician. After having a syncopal episode this morning she called her OB to update them and they told her to seek care at the nearest emergency department immediately. Related Data Home Medications ?Medication ?Instructions ?Recorded ?Confirmed sertraline 100 mg tablet 100 mg PO DAILY 08/25/23 03/11/24 Allergies Allergy/AdvReac Type Severity Reaction Status Date / Time No Known Drug Allergies Allergy Verified 10/07/23 22:37 Review of Systems ROS Status of ROS 10 or more systems reviewed and unremark able except as noted in history and below [facility] Social History Little interest or pleasure in doing things: not at all Feeling down, depressed, or hopeless: not at all Exam Narrative Exam Narrative: VITALS: I have reviewed the triage vital signs. GENERAL: Well developed, well appearing adult in no acute distress. NEURO: Alert and oriented. Moves all extremities. Face is symmetric and expressive. EYES: PERRL. No scleral icterus or conjunctival injection. No discharge. HENT: Normocephalic, atraumatic. Hearing is grossly intact. Nares grossly patent and without discharge. Mucous membranes moist. NECK: No JVD. Patient moves neck without restriction. No midline cervical, thoracic or lumbar tenderness. CARDIO: Rhythm regular. Normal rate. No murmur, rub, or gallop. Pulses equal bilaterally in the upper and lower extremity. No lower extremity edema. PULM: Lungs clear to auscultation in all luz. No wheezes, rales, or rhonchi. No conversational dyspnea. No splinting, stridor, or accessory muscle use. GI/: Abdomen is soft and non-tender. Gravid uterus. Normoactive bowel sounds. EXTREMITIES: Symmetric muscle bulk. No joint swelling. No clubbing, cyanosis, or deformity. SKIN: Warm and dry. Normal turgor. No rash or lesions appreciated. PSYCH: Mood, affect, and interaction is appropriate to the setting. Constitutional Vital Signs, click to edit/add: Last Vital Signs Temp 98.1 F 03/11/24 11:20 Pulse 95 H 03/11/24 14:01 Resp 26 H 03/11/24 14:01 BP 125/66 03/11/24 14:00 Pulse Ox 97 03/11/24 14:01 O2 Del Method Room Air 03/11/24 11:20 Course Vital Signs Vital signs: Vital Signs Temperature 98.1 F 03/11/24 11:20 Pulse Rate 108 H 03/11/24 11:20 Respiratory Rate 18 03/11/24 11:20 Blood Pressure 115/77 03/11/24 11:20 Pulse Oximetry 97 03/11/24 11:20 Oxygen Delivery Method Room Air 03/11/24 11:20 Temperature 98.1 F 03/11/24 11:20 Pulse Rate 95 H 03/11/24 14:01 Respiratory Rate 26 H 03/11/24 14:01 Blood Pressure 125/66 03/11/24 14:00 Pulse Oximetry 97 03/11/24 14:01 Oxygen Delivery Method Room Air 03/11/24 11:20 MDM - Syncope MDM Narrative Medical decision making narrative: Well-appearing 28-year-old female to the emergency department chief complaint of 3 episodes of syncope in the last 3 days. Vital stable, the patient is afebrile. She is currently 38 weeks . No abdominal pain, vaginal bleeding or discharge. She had normal heart tones. Will place her on environmental monitoring technician. EKG, basic labs. Fluids to be given. Patient agrees with this plan. Lab work reviewed and noted. No major abnormalities. EKG without evidence of ischemia. There are no events on telemetry monitoring. There is no call from her environmental monitoring technician company. Patient ambulated about the department these. She had no further symptoms. She feels improved. I was called to the bedside with the patient she reports she is ready to go would like to be discharged home. Believe she is reasonable for follow-up with her PCP. She asked if she could drive a vehicle and I discussed with her that at this time with multiple syncopal episodes she should avoid driving at this time due to the risk of sudden loss of consciousness. Patient agrees with this plan. She will increase fluids, rest. Seems to be provoked by periods of long standing, she will avoid this. Return precautions were discussed. All questions were answered. The patient was discharged home. Medical Records Attestation: I reviewed the patient's medical records. Lab Data Attestation: I reviewed the patient's lab results. Labs: Lab Results 03/11/24 Range/Units 11:42 WBC 14.2 H (4.0-11.0) 10^3/uL RBC 3.33 L (4.20-5.40) 10^6/uL Hgb 10.9 L (12.0-16.0) g/dL Hct 31.9 L (36.0-48.0) % MCV 95.8 (81.0-99.0) fL MCH 32.7 (26.7-34.0) pg MCHC 34.2 (29.9-35.2) g/dL RDW 14.4 (11.0-15.0) % Plt Count 312 (150-450) 10^3/uL MPV 9.8 (9.5-13.5) fL Neut % (Auto) 64.7 (43.0-75.0) % Lymph % (Auto) 24.4 (20.5-60.0) % [place] % (Auto) 5.8 (1.7-12.0) % Eos % (Auto) 1.5 (0.9-7.0) % Baso % (Auto) 0.4 (0.2-2.0) % Neut # (Auto) 9.2 H (1.4-6.5) 10^3/uL Lymph # (Auto) 3.5 (1.2-3.8) 10^3/uL [place] # (Auto) 0.8 (0.3-0.8) 10^3/uL Eos # (Auto) 0.2 (0.0-0.7) 10^3/uL Baso # (Auto) 0.1 (0.0-0.1) 10^3/uL Abs Immat Gran (auto) 0.46 H (0.00-0.03) 10^3/uL Imm/Tot Granulo (auto) 3.2 H (0.0-0.5) % PT 9.9 (9.0-11.6) sec INR 0.93 APTT 28.7 (22.3-36.2) sec Sodium 140 (136-145) mmol/L Potassium 3.9 (3.5-5.1) mmol/L Chloride 107 (98-107) mmol/L Carbon Dioxide 21.3 (21.0-32.0) mmol/L Anion Gap 15.6 BUN 4.0 L (7.0-18.0) mg/dL Creatinine 0.51 L (0.55-1.02) mg/dL Est GFR ( Amer) >60 (>=60 mL/min/1.73m^2) Est GFR (Non-Af Amer) >60 (>=60 mL/min/1.73m^2) BUN/Creatinine Ratio 7.8 Glucose 88 (74-106) mg/dL Calcium 8.8 (8.5-10.1) mg/dL Total Bilirubin 0.2 (0.2-1.0) mg/dL AST 8 L (15-37) U/L ALT 11 L (14-59) U/L Alkaline Phosphatase 88 (46-116) U/L Troponin I High Sens <4.0 L (4.0-51.3) pg/mL Total Protein 6.3 L (6.4-8.2) g/dL Albumin 2.5 L (3.4-5.0) g/dL Globulin 3.8 g/dL Albumin/Globulin Ratio 0.7 ECG Data Attestation: I personally reviewed and interpreted this ECG as follows: (Sinus tachycardia at a rate of 113. No STEMI. Normal QTc) Discharge Plan Discharge Chief Complaint: Dizziness Clinical Impression: Syncope Patient Disposition: Home, Self-Care Time of Disposition Decision: 14:24 Condition: Good Mode of Transportation: Private Vehicle Prescriptions / Home Meds: No Action sertraline 100 mg tablet 100 mg PO DAILY Print Language: Somali Instructions: Syncope (ED) Additional Instructions: Call the office of your primary care doctor to arrange for follow-up within the above-stated timeframe. Your ED visit was focused on your acute issue and does not replace primary care. You should review your labs, imaging, and diagnoses from this ED visit with your primary care physician. There may be non-emergent/ incidental findings that need further evaluation. You should review your vital signs including blood pressure with your PCP. If you were prescribed medications you should discuss possible side-effects and drug interactions with your pharmacist. Call 911 or go to the nearest Emergency Department if you develop any new or worsening symptoms. Referrals: Physician,Non-Staff, MD [Primary Care Provider] - 1 week (Follow-up with your [employer] [employer] [employer]) Discharge Date/Time: 03/11/24 14:59
[2024-03-11 11:50] LABS: Basophils Absolute Auto 0.1 10^3/uL (0.0-0.1); Basophils Percent Auto 0.4 % (0.2-2.0); Eosinophils Absolute Auto 0.2 10^3/uL (0.0-0.7); Eosinophils Percent Auto 1.5 % (0.9-7.0); Hematocrit 31.9 % (36.0-48.0); Hemoglobin 10.9 g/dL (12.0-16.0); Immature Granulocytes Abs Auto 0.46 10^3/uL (0.00-0.03); Immature Granulocytes Pct Auto 3.2 % (0.0-0.5); Lymphocytes Absolute Auto 3.5 10^3/uL (1.2-3.8); Lymphocytes Percent Auto 24.4 % (20.5-60.0); Mean Corpuscular HGB Conc 34.2 g/dL (29.9-35.2); Mean Corpuscular Hemoglobin 32.7 pg (26.7-34.0); Mean Corpuscular Volume 95.8 fL (81.0-99.0); Mean Platelet Volume 9.8 fL (9.5-13.5); Monocytes Absolute Auto 0.8 10^3/uL (0.3-0.8); Monocytes Percent Auto 5.8 % (1.7-12.0); Neutrophils Absolute Auto 9.2 10^3/uL (1.4-6.5); Neutrophils Percent Auto 64.7 % (43.0-75.0); Platelet Count 312 10^3/uL (150-450); Red Blood Count 3.33 10^6/uL (4.20-5.40); Red Cell Distribution Width 14.4 % (11.0-15.0); White Blood Count 14.2 10^3/uL (4.0-11.0)
[2024-03-11] MEDS: 0.9 % SODIUM CHLORIDE 1,000 ML 1000 ML IV (11:51)
[2024-03-11 12:06] LABS: INR 0.93; Partial Thromboplastin Time 28.7 sec (22.3-36.2); Prothrombin Time 9.9 sec (9.0-11.6)
[2024-03-11 12:26] LABS: Alanine Aminotransferase 11 U/L (14-59); Albumin Globulin Ratio 0.7; Albumin Level 2.5 g/dL (3.4-5.0); Alkaline Phosphatase 88 U/L (46-116); Anion Gap 15.6; Aspartate Amino Transferase 8 U/L (15-37); BUN Creatinine Ratio 7.8; Bilirubin Total 0.2 mg/dL (0.2-1.0); Calcium 8.8 mg/dL (8.5-10.1); Carbon Dioxide 21.3 mmol/L (21.0-32.0); Chloride 107 mmol/L (98-107); Estimated GFR (African America >60 (>=60 mL/min/1.73m^2); Estimated GFR (Non-African Ame >60 (>=60 mL/min/1.73m^2); Globulin 3.8 g/dL; Glucose 88 mg/dL (74-106); Potassium 3.9 mmol/L (3.5-5.1); Sodium 140 mmol/L (136-145); Total Protein 6.3 g/dL (6.4-8.2); Troponin I High Sensitivity <4.0 pg/mL (4.0-51.3)
== END 2024-03-11 14:59 | disposition home or self-care (01) ==
PROVIDERS: Emergency Provider Student in an Organized Health Care Education/Training Program
DX: O26.893 Other specified pregnancy related conditions, third trimester (principal); R55 Syncope and collapse; Z3A.38 38 weeks gestation of pregnancy
CPT/HCPCS: 36415; 80053; 84484; 85025; 85610; 85730; 93005; 99285

== ENCOUNTER 2024-06-27 20:37 | Emergency (ER) | payer MEDICAID, SELFPAY ==
[2024-06-27 20:45] VITALS: BP 134/87; PULSE 104; TEMP 36.7; O2SAT 96; BMI 24.3
--- OUTSIDE RECORDS SUMMARY | 2024-06-27 20:46 | XMS_ITS | CCD ---
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 (Bld) 1 % High 0 [facility] Comment on above: Performed By: #### G LUSC #### [facility] [address] [place], [place] [phone] Loading Unit Operator Seating: Israel Valiente MD #### HIVCMB, AHCV #### [address] [address] Loading Unit Operator Seating: Maurice Alejandre MD Lymphocytes (Bld) [#/Vol] 3.78 10*3/uL High 1.10-3.70 [facility] Comment on above: Performed By: #### G LUSC #### [facility] [address] [place] [address] Loading Unit Operator Seating: Israel Valiente MD #### HIVCMB, AHCV #### [address] [address] Loading Unit Operator Seating: Maurice Alejandre MD Lymphocytes/100 WBC (Bld) 25 % Normal 24-43 [facility] Comment on above: Performed By: #### G LUSC #### [facility] [address] [place] [address] Loading Unit Operator Seating: Israel Valiente MD #### HIVCMB, AHCV #### [address] [address] Loading Unit Operator Seating: Maurice Alejandre MD Monocytes (Bld) [#/Vol] 0.30 10*3/uL Normal 0.10-1.20 [facility] Comment on above: Performed By: #### G LUSC #### [facility] [address] [place], [place] [phone] Loading Unit Operator Seating: Israel Valiente MD #### HIVCMYohan, AHCV #### [address] [address] Loading Unit Operator Seating: Maurice Alejandre MD Monocytes/100 WBC (Bld) 2 % Low 3-12 [facility] Comment on above: Performed By: #### G LUSC #### [facility] [address] [place], [place] [phone] Loading Unit Operator Seating: Israel Valiente MD #### HIVJOE, AHCV #### [address] [address] Loading Unit Operator Seating: Maurice Alejandre MD Morphology Ismeon (Bld) [Interp] Normal Normal [facility] Comment on above: Performed By: #### G LUSC #### [facility] [address] [place] [address] [place] [address] Loading Unit Operator Seating: Israel Valiente MD #### RED, ERNESTOCV #### [address] [address] Loading Unit Operator Seating: Maurice Alejandre MD Neutrophil (Seg) 71 % High 36-65 [facility] Comment on above: Performed By: #### G LUSC #### [facility] [address] [place] [address] [place] [address] Loading Unit Operator Seating: Israel Valiente MD #### HIVCMYohan, AHCV #### [address] [address] Loading Unit Operator Seating: Maurice Alejandre MD Erythrocyte distribution width (RBC) [Ratio] 14.1 % Normal 11.8-14.4 [facility] Comment on above: Performed By: #### G LUSC #### [address] [place] [address] Loading Unit Operator Seating: Israel Valiente MD #### HIVCMYohan, AHCV #### [place] [id number] [place] [address] Loading Unit Operator Seating: Maurice Alejandre MD Hematocrit (Bld) [Volume fraction] 33.2 % Low 36.3-47.1 [facility] Comment on above: Performed By: #### G LUSC #### [address] [place] [address] Loading Unit Operator Seating: Israel Valiente MD #### HIVCMYohan, AHCV #### [address] [address] Loading Unit Operator Seating: Maurice Alejandre MD Hemoglobin (Bld) [Mass/Vol] 11.3 g/dL Low 11.9-15.1 [facility] Comment on above: Performed By: #### G LUSC #### [address] [place] [phone] Loading Unit Operator Seating: Israel Valiente MD #### HIVJOE, AHCV #### [place] [id number] [place], [place] [phone] Loading Unit Operator Seating: Maurice Alejandre MD MCH (RBC) [Entitic mass] 32.2 pg Normal 25.2-33.5 [facility] Comment on above: Performed By: #### G LUSC #### [address] [place] [address] Loading Unit Operator Seating: Israel Valiente MD #### HIVCMYohan, AHCV #### [place] [id number] [place] [address] Loading Unit Operator Seating: Maurice Alejandre MD MCHC (RBC) [Mass/Vol] 34.0 g/dL Normal 28.4-34.8 [facility] Comment on above: Performed By: #### G LUSC #### [facility] [address] [place], [place] [phone] Loading Unit Operator Seating: Israel Valiente MD #### HIVJOE, ERNESTOCV #### [address] [phone] Loading Unit Operator Seating: Maurice Alejandre MD MCV (RBC) [Entitic vol] 94.6 fL Normal 82.6-102.9 [facility] Comment on above: Performed By: #### G LUSC #### [facility] [address] [place] [address] Loading Unit Operator Seating: Israel Valiente MD #### HIVJOE, ERNESTOCV #### [address] [phone] Loading Unit Operator Seating: Maurice Alejandre MD NRBC Automated 0.0 per 100 WBC Normal 0.0 [facility] Comment on above: Performed By: #### G LUSC #### [address] [place] [address] Loading Unit Operator Seating: Israel Valiente MD #### RED, ERNESTOCV #### [address] [address] Loading Unit Operator Seating: Maurice Alejandre MD Platelet mean volume (Bld) [Entitic vol] 10.4 fL Normal 8.1-13.5 [facility] Comment on above: Performed By: #### G LUSC #### [facility] [address] [place] [address] [place] [address] Loading Unit Operator Seating: Israel Valiente MD #### RED, AHCV #### [address] [phone] Loading Unit Operator Seating: Maurice Alejandre MD Platelets (Bld) [#/Vol] 343 10*3/uL Normal 138-453 [facility] Comment on above: Performed By: #### G LUSC #### [facility] [address] [place] [address] Dr. [place], [place] [phone] Loading Unit Operator Seating: Israel Valiente MD #### HIVCMB, AHCV #### [place] [phone] [place], [place] [phone] Loading Unit Operator Seating: Maurice Alejandre MD RBC (Bld) [#/Vol] 3.51 10*6/uL Low 3.95-5.11 [facility] Comment on above: Performed By: #### G LUSC #### [address] [place], [place] [phone] Loading Unit Operator Seating: Israel Valiente MD #### HIVCMB, AHCV #### [address] [phone] Loading Unit Operator Seating: Maurice Alejandre MD WBC (Bld) [#/Vol] 15.1 10*3/uL High 3.5-11.3 [facility] Comment on above: Performed By: #### G LUSC #### [address] [place] [address] Loading Unit Operator Seating: Israel Valiente MD #### HIVCMB, AHCV #### [place] [phone] [place], [place] [phone] Loading Unit Operator Seating: Maurice Alejandre MD Type + Screenon 04-19-2024 Type + Screen Sample Expiration 04/22/2024,2359 Arm Band Number [id number] ABO/Rh(D) O POSITIVE Antibody Screen NEGATIVE Normal [facility] Comment on above: Performed By: #### B HCG #### [facility] [address] [place] [address] [place] [address] Loading Unit Operator Seating: Israel Valiente MD US OB 1 OR MORE FETUS LIMITE Don 04-18-2024 US OB 1 OR MORE FETUS LIMITED EXAMINATION: 3rd TRIMESTER OBSTETRIC ULTRASOUND 04/18/2024 TECHNIQUE: [...] by: Kiet Hernandez MD 04/18/24 Final result Normal [facility] US BIOPHYSICAL PROFILE WO NON STRESS TESTINGon 04-16-2024 US BIOPHYSICAL PROFILE WO NON STRESS TESTING Table formatting from the original result was not included. Janett Huerta on 04/15/2024 9:11 AM EST BPP- 8/8 HR: 146 bpm LEANDER: 16.5 cm Posterior placenta. Cephalic presentation. Active movements. Interpreted by: Lazaro Tucker MD Signed by: Lazaro Tucker MD 04/16/24 Final result Normal [facility] US BIOPHYSICAL PROFILE WO NON STRESS TESTINGon 04-08-2024 US BIOPHYSICAL PROFILE WO NON STRESS TESTING Table formatting from the original result was not included. aJnett Huerta on 04/07/2024 9:46 AM EST BPP- 8/8 HR: 151 bpm LEANDER: 17.4 cm Posterior placenta. Cephalic presentation. Active movements. Interpreted by: Lazaro Tucker MD Signed by: Lazaro Tucker MD 04/08/24 Final result Normal [facility] US OB 1 OR MORE FETUS LIMITE Don 04-02-2024 US OB 1 OR MORE FETUS LIMITED EXAMINATION: TRIMESTER OBSTETRIC ULTRASOUND 04/02/2024 TECHNIQUE: Transabdominal [...] by: Ej Babin MD 04/02/24 Final result Normal [facility] Urinalysis, Routineon 2023 Bilirubin, SemiQt,Ur Negative Normal NEG [facility] Comment on above: Performed By: #### U MICAO, UA #### [facility] [address] [place] [address] [place] [address] Loading Unit Operator Seating: Israel Valiente MD Blood, Urine Negative [facility] Comment on above: Performed By: #### U MICAO, UA #### [address] [place] [address] Loading Unit Operator Seating: Israel Valiente MD Clarity (U) Clear Normal CLEAR [facility] Comment on above: Performed By: #### U MICAO, UA #### [address] [place] [address] Loading Unit Operator Seating: Israel Valiente MD Color (U) Yellow Normal YEL [facility] Comment on above: Performed By: #### U MICAO, UA #### [facility] [address] [place] [address] [place] [address] Loading Unit Operator Seating: Israel Valiente MD Glucose Ql (U) Negative Normal NEG [facility] Comment on above: Performed By: #### U MICAO, UA #### [facility] [address] [place] [address] [place] [address] Loading Unit Operator Seating: Israel Valiente MD Ketones Ql (U) Negative Normal NEG [facility] Comment on above: Performed By: #### U MICAO, UA #### [facility] [address] [place], [place] [phone] Loading Unit Operator Seating: Israel Valiente MD Leukocyte esterase Test strip Ql (U) TRACE Abnormal NEG [facility] Comment on above: Performed By: #### U MICAO, UA #### [facility] [address] [place], [place] [phone] Loading Unit Operator Seating: Israel Valiente MD Nitrite,Ur Negative Normal NEG [facility] Comment on above: Performed By: #### U MICAO, UA #### [facility] [address] [place], [place] [phone] Loading Unit Operator Seating: Israel Valiente MD PH,Ur 6.5 Normal 5.0-9.0 [facility] Comment on above: Performed By: #### U MICAO, UA #### [facility] [address] [place] [address] Dr[place], [place] [phone] Loading Unit Operator Seating: Israel Valiente MD Protein Ql (U) Negative Normal NEG [facility] Comment on above: Performed By: #### U MICAO, UA #### [address] [place], [place] [phone] Loading Unit Operator Seating: Israel Valiente MD Spec. [place],Ur 1.010 Normal 1.010-1.020 [facility] Comment on above: Performed By: #### U MICAO, UA #### [facility] [address] [place] [address] Dr. [place], [place] [phone] Loading Unit Operator Seating: Israel Valiente MD Urobilinogen,Ur Normal Normal 0.0-1.0 [facility] Comment on above: Performed By: #### U MICAO, UA #### [facility] [address] [place] [address] Loading Unit Operator Seating: Israel Valiente MD Urinalysis,Microon 4 Epithelial cells LM Ql (Urine sed) 20 TO 50 Normal 0-25 [facility] Comment on above: Performed By: #### U MICAO, UA #### [facility] [address] [place] [address] Loading Unit Operator Seating: Israel Valiente MD Urine RBC's 0 TO 2 Normal 0-2 [facility] Comment on above: Performed By: #### U MICAO, UA #### [facility] [address] [place] [address] Loading Unit Operator Seating: Israel Valiente MD Urine WBC's 0 TO 2 Normal 0-5 [facility] Comment on above: Performed By: #### U MICAO, UA #### [facility] [address] [place] [address] Loading Unit Operator Seating: Israel Valiente MD US BIOPHYSICAL PROFILE WO NON STRESS TESTINGon 04-01-2024 US BIOPHYSICAL PROFILE WO NON STRESS TESTING Table formatting from the original result was not included. Janett Huerta on 03/31/2024 12:04 PM EST BPP- 8/8 HR: 145 bpm LEANDER: 15.7 cm Posterior placenta. Cephalic presentation. Active movements. Interpreted by: Lazaro Tucker MD Signed by: Lazaro Tucker MD 04/01/24 Final result Normal [facility] Rule Out Grp.B Strepon 03-27 Rule Out Grp.B Strep Specimen Descriptio n .VAGINA Special Requests Site: Genital Culture NEGATIVE FOR GROUP B STREPTOCOCCI Report Status FINAL 03/27/2024 Normal [facility] Comment on above: Performed By: #### G LUSC #### [facility] [address] [place] [address] Loading Unit Operator Seating: Israel Valiente MD #### HIVCMB, AHCV #### [address] [address] Loading Unit Operator Seating: Maurice Alejandre MD US BIOPHYSICAL PROFILE WO NON STRESS TESTINGon 03-24-2024 US BIOPHYSICAL PROFILE WO NON STRESS TESTING Table formatting from the original result was not included. Janett Huerta on 03/24/2024 9:38 AM EST BPP- 8/8 36.5 WK IUP EFW:44.8% (6lb 7oz) CL:not visualized d/t head position LEANDER:16.8cm HR:153 bpm Posterior placenta, cephalic presentation Active movements Interpreted by: Lazaro Tucker MD Signed by: Lazaro Tucker MD 03/24/24 Final result Normal [facility] US OB FOLLOW UP TRANSABDOMIN AL APPROACHon 03-24-2024 US OB FOLLOW UP TRANSABDOMINAL APPROACH Table formatting from the original result was not included. Janett Huerta on 03/24/2024 9:38 AM EST BPP- 8/8 36.5 WK IUP EFW:44.8% (6lb 7oz) CL:not visualized d/t head position LEANDER:16.8cm HR:153 bpm Posterior placenta, cephalic presentation Active movements Interpreted by: Lazaro Tucker MD Signed by: Lazaro Tucker MD 03/24/24 Final result Normal [facility] Heart and Vascular Office/Cl inic Noteon 03-21-2024 Heart and Vascular Office/Clinic Note Heart and Vascular Office/Clinic Note Chief Complaint est care-syncope mulptile times [...] 03/21/2024 Family History Stroke: Mother and Father. Normal [facility] Comment on above: Result Comment: Elec tronically Signed By: Anali MODI, Crow D\.br\Date and Time Signed: 03/21/24 14:51 EST US BIOPHYSICAL PROFILE WO NON STRESS TESTINGon 03-17-2024 US BIOPHYSICAL PROFILE WO NON STRESS TESTING Table formatting from the original result was not included. Bradley Janett on 03/17/2024 8:45 AM EST BPP- 8/8 HR: 143 bpm LEANDER: 16.8 cm Posterior placenta. Cephalic presentation. Active movements. Interpreted by: Lazaro Tucker MD Signed by: Lazaro Tucker MD 03/17/24 Final result Normal [facility] US BIOPHYSICAL PROFILE WO NON STRESS TESTINGon 03-10-2024 US BIOPHYSICAL PROFILE WO NON STRESS TESTING Table formatting from the original result was not included. Bradley Janett on 03/10/2024 11:23 AM EST BPP- 8/8 HR: 138 bpm LEANDER: 16.7 cm Posterior placenta. Cephalic presentation. Active movements. Interpreted by: Lazaro Tucker MD Signed by: Lazaro Tucker MD 03/10/24 Final result Normal [facility] US BIOPHYSICAL PROFILE WO NON STRESS TESTINGon 03-03-2024 US BIOPHYSICAL PROFILE WO NON STRESS TESTING Table formatting from the original result was not included. HuertaJanett on 03/03/2024 11:00 AM EDT BPP- 8/8 HR: 144 bpm LEANDER: 17.4 cm Posterior placenta. Cephalic presentation. Active movements. Interpreted by: Lazaro Tucker MD Signed by: Lazaro Tucker MD 03/03/24 Final result Normal [facility] Urinalysis, Routineon 2023 Bilirubin, SemiQt,Ur Negative Normal NEG [facility] Comment on above: Performed By: #### B HCG #### [facility] [address] [place] [address] Loading Unit Operator Seating: Israel Valiente MD Blood, Urine Negative Normal NEG [facility] Comment on above: Performed By: #### B HCG #### [facility] [address] [place] [address] Loading Unit Operator Seating: Israel Valiente MD Clarity (U) Clear Normal CLEAR [facility] Comment on above: Performed By: #### B HCG #### [facility] [address] [place] [address] Loading Unit Operator Seating: Israel Valiente MD Color (U) Yellow Normal YEL [facility] Comment on above: Performed By: #### B HCG #### [facility] [address] [place] [address] Loading Unit Operator Seating: Israel Valiente MD Glucose Ql (U) Negative Normal NEG [facility] Comment on above: Performed By: #### B HCG #### [address] [place], [place] [phone] Loading Unit Operator Seating: Israel Valiente MD Ketones Ql (U) Negative Normal NEG [facility] Comment on above: Performed By: #### B HCG #### [facility] [address] [place] [address] Loading Unit Operator Seating: Israel Valiente MD Leukocyte esterase Test strip Ql (U) Negative Normal NEG [facility] Comment on above: Performed By: #### B HCG #### [address] [place], [place] [phone] Loading Unit Operator Seating: Israel Valiente MD Nitrite,Ur Negative Normal NEG [facility] Comment on above: Performed By: #### B HCG #### [facility] [address] [place] [address] Dr. [place], [place] [phone] Loading Unit Operator Seating: Israel Valiente MD PH,Ur 7.0 Normal 5.0-9.0 [facility] Comment on above: Performed By: #### B HCG #### [facility] [address] [place] [address] Loading Unit Operator Seating: Israel Valiente MD Protein Ql (U) Negative Normal NEG [facility] Comment on above: Performed By: #### B HCG #### [facility] [address] [place], [place] [phone] Loading Unit Operator Seating: Israel Valiente MD Spec. [place],Ur 1.020 Normal 1.010-1.020 [facility] Comment on above: Performed By: #### B HCG #### [facility] [address] [place] [address] Loading Unit Operator Seating: Israel Valiente MD Urobilinogen,Ur Normal Normal 0.0-1.0 [facility] Comment on above: Performed By: #### B HCG #### [facility] [address] [place] [address] Loading Unit Operator Seating: Israel Valiente MD OB FOLLOW UP TRANSABDOMIN AL APPROACHon 02-05-2024 [...] Lazaro Tucker MD 02/05/24 Final result Normal [facility] CBCon 01-15-2024 Erythrocyte distribution width (RBC) [Ratio] 14.6 % High 11.8-14.4 [facility] Comment on above: Performed By: #### B HCG #### [facility] [address] [place] [address] Dr. [place], [place] [phone] Loading Unit Operator Seating: Israel Valiente MD Hematocrit (Bld) [Volume fraction] 32.7 % Low 36.3-47.1 [facility] Comment on above: Performed By: #### B HCG #### [facility] [address] [place] [address] [place] [address] Loading Unit Operator Seating: Israel Valiente MD Hemoglobin (Bld) [Mass/Vol] 11.3 g/dL Low 11.9-15.1 [facility] Comment on above: Performed By: #### B HCG #### [facility] [address] [place] [address] Loading Unit Operator Seating: Israel Valiente MD MCH (RBC) [Entitic mass] 32.6 pg Normal 25.2-33.5 [facility] Comment on above: Performed By: #### B HCG #### [facility] [address] [place] [address] Loading Unit Operator Seating: Israel Valiente MD MCHC (RBC) [Mass/Vol] 34.6 g/dL Normal 28.4-34.8 [facility] Comment on above: Performed By: #### B HCG #### [address] [place] [address] Loading Unit Operator Seating: Israel Valiente MD MCV (RBC) [Entitic vol] 94.2 fL Normal 82.6-102.9 [facility] Comment on above: Performed By: #### B HCG #### [address] [place], [place] [phone] Loading Unit Operator Seating: Israel Valiente MD NRBC Automated 0.0 per 100 WBC Normal 0.0 [facility] Comment on above: Performed By: #### B HCG #### [facility] [address] [place] [address] Dr. [place], [place] [phone] Loading Unit Operator Seating: Israel Valiente MD Platelet mean volume (Bld) [Entitic vol] 10.9 fL Normal 8.1-13.5 [facility] Comment on above: Performed By: #### B HCG #### [facility] [address] [place] [address] Loading Unit Operator Seating: Israel Valiente MD Platelets (Bld) [#/Vol] 291 10*3/uL Normal 138-453 [facility] Comment on above: Performed By: #### B HCG #### [facility] [address] [place], [place] [phone] Loading Unit Operator Seating: Israel Valiente MD RBC (Bld) [#/Vol] 3.47 10*6/uL Low 3.95-5.11 [facility] Comment on above: Performed By: #### B HCG #### [facility] [facility] [address] [place], [place] [phone] Loading Unit Operator Seating: Israel Valiente MD WBC (Bld) [#/Vol] 11.0 10*3/uL Normal 3.5-11.3 [facility] Comment on above: Performed By: #### B HCG #### [facility] [address] [place], [place] [phone] Loading Unit Operator Seating: Israel Valiente MD Glucose North Scr 50gon 2023 Glucose [Mass/Vol] 106 mg/dL Normal 70-135 [facility] Comment on above: Performed By: #### G LUSC #### [facility] [address] [place], [place] [phone] Loading Unit Operator Seating: Israel Valiente MD Glu Administered via Glucola Normal [facility] Comment on above: Performed By: #### G LUSC #### [facility] [address] [place], [place] [phone] Loading Unit Operator Seating: Israel Valiente MD Glucose tolerance, 1 houron 01-14-2024 GLU ADMN Glucola [facility] Glucose 1 Hr post 50 g glucose PO [Mass/Vol] 106 mg/dL 70 - 135 mg/dL [facility] US OB 14 PLUS WEEKS SINGLE O R FIRST GESTATIONon 11-29-2023 US OB 14 PLUS WEEKS SINGLE OR FIRST GESTATION Table formatting from the original result was not included. Bruna Bowie on 11/29/2023 10:29 AM EDT 20.4 WK IUP CL:4.3 cm HR:143 bpm Posterior placenta, Cephalic presentation Ovaries: Both ovaries not visualized Gender: Male Active movements All visualized anatomy WNL Interpreted by: Lazaro Tucker MD Signed by: Lazaro Tucker MD 11/29/23 Final result Normal [facility]Con 10-11-2023 Erythrocyte distribution width (RBC) [Ratio] 11.9 % 11.8 - 14.4 % [facility] Hematocrit (Bld) [Volume fraction] 36.3 % 36.3 - 47.1 % [facility] Hemoglobin (Bld) [Mass/Vol] 12.9 g/dL 11.9 - 15.1 g/dL [facility] Interpretation and review of laboratory results Abnormal [facility] MCH (RBC) [Entitic mass] 31.7 pg 25.2 - 33.5 pg [facility] MCHC (RBC) [Mass/Vol] 35.5 g/dL High 28.4 - 34.8 g/dL [facility] MCV (RBC) [Entitic vol] 89.2 fL 82.6 - 102.9 fL [facility] Nucleated RBC/100 WBC (Bld) [Ratio] 0.0 % 0.0 per 100 WBC [facility] Platelet mean volume (Bld) [Entitic vol] 10.3 fL 8.1 - 13.5 fL [facility] Platelets (Bld) [#/Vol] 278 10*3/uL [facility] RBC (Bld) [#/Vol] 4.07 10*6/uL 3.95 - 5.1 1 m/uL [facility] WBC other (Bld) [#/Vol] 9.0 [facility] Erythrocyte distribution width (RBC) [Ratio] 11.9 % Normal 11.8-14.4 [facility] Comment on above: Performed By: #### G LUSC #### [facility] [address] [place] [address] Loading Unit Operator Seating: Israel Valiente MD #### HIVCMB, CV #### [id number] [place] [address] Loading Unit Operator Seating: Maurice Alejandre MD Hematocrit (Bld) [Volume fraction] 36.3 % Normal 36.3-47.1 [facility] Comment on above: Performed By: #### G LUSC #### [address] [place] [phone] Loading Unit Operator Seating: Israel Valiente MD #### HIVCMYohan, AHCV #### [address] [phone] Loading Unit Operator Seating: Maurice Alejandre MD Hemoglobin (Bld) [Mass/Vol] 12.9 g/dL Normal 11.9-15.1 [facility] Comment on above: Performed By: #### G LUSC #### [address] [place] [phone] Loading Unit Operator Seating: Israel Valiente MD #### RED, ERNESTOCV #### [place] [phone] Loading Unit Operator Seating: Maurice Alejandre MD MCH (RBC) [Entitic mass] 31.7 pg Normal 25.2-33.5 [facility] Comment on above: Performed By: #### G LUSC #### [address] [place] [address] Loading Unit Operator Seating: Israel Valiente MD #### RED, AHCV #### [place] [phone] Loading Unit Operator Seating: Maurice Alejandre MD MCHC (RBC) [Mass/Vol] 35.5 g/dL High 28.4-34.8 [facility] Comment on above: Performed By: #### G LUSC #### [address] [place] [phone] Loading Unit Operator Seating: Israel Valiente MD #### PAMCMYohan, AHCV #### [address] [phone] Loading Unit Operator Seating: Maurice Alejandre MD MCV (RBC) [Entitic vol] 89.2 fL Normal 82.6-102.9 [facility] Comment on above: Performed By: #### G LUSC #### [facility] [address] [place] [address] [place] [address] Loading Unit Operator Seating: Israel Valiente MD #### HIVJOE, ERNESTOCV #### [address] [phone] Loading Unit Operator Seating: Maurice Alejandre MD NRBC Automated 0.0 per 100 WBC Normal 0.0 [facility] Comment on above: Performed By: #### G LUSC #### [address] [place] [phone] Loading Unit Operator Seating: Israel Valiente MD #### RED, ERNESTOCV #### [address] [phone] Loading Unit Operator Seating: Maurice Alejandre MD Platelet mean volume (Bld) [Entitic vol] 10.3 fL Normal 8.1-13.5 [facility] Comment on above: Performed By: #### G LUSC #### [address] [place] [phone] Loading Unit Operator Seating: Israel Valiente MD #### RED, ERNESTOCV #### [address] [phone] Loading Unit Operator Seating: Maurice Alejandre MD Platelets (Bld) [#/Vol] 278 10*3/uL Normal 138-453 [facility] Comment on above: Performed By: #### G LUSC #### [address] [place], [place] [phone] Loading Unit Operator Seating: Israel Valiente MD #### RED, AHCV #### [address] [address] Loading Unit Operator Seating: Maurice Alejandre MD RBC (Bld) [#/Vol] 4.07 10*6/uL Normal 3.95-5.11 [facility] Comment on above: Performed By: #### G LUSC #### [facility] [address] [place] [address] [place]. [place], [place] 1251983 Loading Unit Operator Seating: Israel Valiente MD #### RED, AHCV #### [id number] [place], [place] [phone] Loading Unit Operator Seating: Maurice Alejandre MD WBC (Bld) [#/Vol] 9.0 10*3/uL Normal 3.5-11.3 [facility] Comment on above: Performed By: #### G LUSC #### [facility] [address] [place] [address] [place]. [place], [place] [phone] Loading Unit Operator Seating: Israel Valiente MD #### RED, AHCV #### [address] [address] Loading Unit Operator Seating: Maurice Alejandre MD Comp Metabolic Profon 2023 Albumin [Mass/Vol] 3.8 g/dL Normal 3.5-5.2 [facility] Comment on above: Performed By: #### G LUSC #### [facility] [address] [place] [address] [place]. [place], [place] [phone] Loading Unit Operator Seating: Israel Valiente MD #### RED, AHCV #### [address] [address] Loading Unit Operator Seating: Maurice Alejandre MD Albumin/Glob Ratio 1.5 Normal 1.0-2.5 [facility] Comment on above: Performed By: #### G LUSC #### [address] [place], [place] 1851283 Loading Unit Operator Seating: Israel Valiente MD #### RED, AHCV #### [address] [address] Loading Unit Operator Seating: Maurice Alejandre MD Alkaline Phos 40 U/L Normal 35-104 [facility] Comment on above: Performed By: #### G LUSC #### [facility] [address] [place], [place] [phone] Loading Unit Operator Seating: Israel Valiente MD #### HIVCMYohan, AHCV #### [address] [address] Loading Unit Operator Seating: Maurice Alejandre MD ALT [Catalytic activity/Vol] 22 U/L Normal 5-33 [facility] Comment on above: Performed By: #### G LUSC #### [facility] [address] [place] [address] [place]. [place], [place] [phone] Loading Unit Operator Seating: Israel Valiente MD #### RED, AHCV #### [address] [address] Loading Unit Operator Seating: Maurice Alejandre MD Anion gap [Moles/Vol] 11 mmol/L Normal 9-17 [facility] Comment on above: Performed By: #### G LUSC #### [facility] [address] [place] [address] [address]. [place], [place] [phone] Loading Unit Operator Seating: Israel Valiente MD #### RED, AHCV #### [address] [address] Loading Unit Operator Seating: Maurice Alejandre MD AST [Catalytic activity/Vol] 12 U/L Normal <32 [facility] Comment on above: Performed By: #### G LUSC #### [facility] [address] [place], [place] [phone] Loading Unit Operator Seating: Israel Valiente MD #### HIVCMB, AHCV #### [address] [address] Loading Unit Operator Seating: Maurice Alejandre MD Bilirubin [Mass/Vol] 0.3 mg/dL Normal 0.3-1.2 [facility] Comment on above: Performed By: #### G LUSC #### [facility] [address] [place] [address] Loading Unit Operator Seating: Israel Valiente MD #### HIVCMB, AHCV #### [address] [phone] Loading Unit Operator Seating: Maurice Alejandre MD BUN/CRE Ratio 15 Normal 9-20 [facility] Comment on above: Performed By: #### G LUSC #### [facility] [address] [place], [place] [phone] Loading Unit Operator Seating: Israel Valiente MD #### HIVCMYohan, AHCV #### [address] [phone] Loading Unit Operator Seating: Maurice Alejandre MD Calcium [Mass/Vol] 9.2 mg/dL Normal 8.6-10.4 [facility] Comment on above: Performed By: #### G LUSC #### [facility] [address] [place], [place] [phone] Loading Unit Operator Seating: Israel Valiente MD #### PAMCMYohan, AHCV #### [address] [address] Loading Unit Operator Seating: Maurice Alejandre MD Chloride [Moles/Vol] 107 mmol/L Normal 98-107 [facility] Comment on above: Performed By: #### G LUSC #### [facility] [address] [place], [place] [phone] Loading Unit Operator Seating: Israel Valiente MD #### HIVCMYohan, AHCV #### [address] [address] Loading Unit Operator Seating: Maurice Alejandre MD CO2 [Moles/Vol] 22 mmol/L Normal 20-31 [facility] Comment on above: Performed By: #### G LUSC #### [facility] [address] [place] [address] [place]. [place], [place] [phone] Loading Unit Operator Seating: Israel Valiente MD #### ERNESTO MOONCV #### [facility] [address] [place], [place] [phone] Loading Unit Operator Seating: Maurice Alejandre MD Creatinine [Mass/Vol] 0.4 mg/dL Low 0.5-0.9 [facility] Comment on above: Performed By: #### G LUSC #### [facility] [address] [place] [address] Dr[place], [place] [phone] Loading Unit Operator Seating: Israel Valiente MD #### ERNESTO MOONCV #### [id number] [place], [place] [phone] Loading Unit Operator Seating: Maurice Alejandre MD GFR/1.73 sq M.predicted among non-blacks MDRD (S/P/Bld) [Vol rate/Area] mL/min/{1.73_m2} Normal >60 [facility] Comment on above: Result Comment: These [...] affects renal tubular secretion. Performed By: #### G LUSC #### [address] [place], [place] [phone] Loading Unit Operator Seating: Israel Valiente MD #### ERNESTO MOONCV #### [facility] [address] [place], [place] [phone] Loading Unit Operator Seating: Maurice Alejandre MD Glucose [Mass/Vol] 89 mg/dL Normal 70-99 [facility] Comment on above: Performed By: #### G LUSC #### [address] [place] [address] Loading Unit Operator Seating: Israel Valiente MD #### HIVCMYohan, AHCV #### [address] [phone] Loading Unit Operator Seating: Maurice Alejandre MD Potassium [Moles/Vol] 3.6 mmol/L Low 3.7-5.3 [facility] Comment on above: Performed By: #### G LUSC #### [facility] [address] [place] [address] [place] [address] Loading Unit Operator Seating: Israel Valiente MD #### HIVJOE, AHCV #### [address] [phone] Loading Unit Operator Seating: Maurice Alejandre MD Protein [Mass/Vol] 6.4 g/dL Normal 6.4-8.3 [facility] Comment on above: Performed By: #### G LUSC #### [address] [place] [address] Loading Unit Operator Seating: Israel Valiente MD #### RED, AHCV #### [address] [phone] Loading Unit Operator Seating: Maurice Alejandre MD Sodium [Moles/Vol] 140 mmol/L Normal 135-144 [facility] Comment on above: Performed By: #### G LUSC #### [address] [place], [place] [phone] Loading Unit Operator Seating: Israel Valiente MD #### RED, AHCV #### [address] [phone] Loading Unit Operator Seating: Maurice Alejandre MD Urea nitrogen [Mass/Vol] 6 mg/dL Normal 6-20 [facility] Comment on above: Performed By: #### G LUSC #### [facility] [address] [place] [address] [place] [address] Loading Unit Operator Seating: Israel Valiente MD #### HIVCMB, AHCV #### [facility] [address] [place] [address] Loading Unit Operator Seating: Maurice Alejandre MD [facility] Metabolic Pane [facility] 10-11-2023 Albumin [Mass/Vol] 3.8 g/dL 3.5 - 5.2 g/dL [facility] Albumin/Globulin [Mass ratio] 1.5 {ratio} 1.0 - 2.5 [facility] ALP [Catalytic activity/Vol] 40 U/L 35 - 104 U/L [facility] ALT [Catalytic activity/Vol] 22 U/L 5 - 33 U/L [facility] Anion gap [Moles/Vol] 11 mmol/L 9 - 17 mmol/L [facility] AST [Catalytic activity/Vol] 12 U/L NINF - 32 U/L [facility] Bilirubin [Mass/Vol] 0.3 mg/dL 0.3 - 1.2 mg/dL [facility] Calcium [Mass/Vol] 9.2 mg/dL 8.6 - 10. 4 mg/dL [facility] Chloride [Moles/Vol] 107 mmol/L 98 - 107 mmol/L [facility] CO2 [Moles/Vol] 22 mmol/L 20 - 31 mmol/L [facility] Creatinine [Mass/Vol] 0.4 mg/dL Low 0.5 - 0.9 mg/dL [facility] Est, Glom Filt Rate - PINF [facility] Comment on above: These results are not [...] [Mass/Vol] 89 mg/dL 70 - 99 mg/dL [facility] Interpretation and review of laboratory results Abnormal [facility] Potassium [Moles/Vol] 3.6 mmol/L Low 3.7 - 5.3 mmol/L [facility] Protein [Mass/Vol] 6.4 g/dL 6.4 - 8.3 g/dL [facility] Sodium [Moles/Vol] 140 mmol/L 135 - 144 mmol/L [facility] Urea nitrogen [Mass/Vol] 6 mg/dL 6 - 20 mg/dL [facility] Urea nitrogen/Creatinine [Mass ratio] 15 mg/mg 9 - 20 [facility] Chlamydia/GC DNA, Uron 09-06 Chlamydia Probe, Ur Negative Normal NEG [facility] Comment on above: Result Comment: CHLA [...] alternative nucleic acid target. Performed By: #### B HCG #### [facility] [address] [place] [address] [place] [address] Loading Unit Operator Seating: Israel Valiente MD Gonorrhea Probe, Ur Negative Normal [facility] Comment on above: Result Comment: NEIS [...] alternative nucleic acid target. Performed By: #### B HCG #### [facility] [address] [place] [address] Loading Unit Operator Seating: Israel Valiente MD Cult,Urineon 09-06-2023 Cult,Urine Specimen Description .CLEAN CATCH URINE Culture NO SIGNIFICANT GROWTH Report Status FINAL 09/06/2023 [facility] Comment on above: Performed By: #### U RC #### [facility] [address] [place], [place] [phone] Loading Unit Operator Seating: Maurice Alejandre MD [address] [place], [place] [phone] Loading Unit Operator Seating: Israel Valiente MD Profileon T.pallidum Ab Screen Non-Reactive Normal NR [facility] Comment on above: Result Comment: T. pallidum antibodies are not detected. There is no serological evidence of infection with T. pallidum (early primary syphilis cannot be excluded). Retest in 2-4 weeks if syphilis is clinically suspect. Performed By: #### B HCG #### [address] [place], [place] [phone] Loading Unit Operator Seating: Israel Valiente MD Hep B Surf Ag Non-Reactive Normal [facility] Comment on above: Performed By: #### B HCG #### [address] [place] [address] Loading Unit Operator Seating: Israel Valiente MD Rubella Ab, IgG 24.7 IU/mL Normal [facility] Comment on above: Result Comment: <10 NON REACTIVE Negative for Anti-Rubella IgG >=10 REACTIVE Positive for Anti Rubella IgG The presence of IgG antibody to Rubella virus is an indication of previous exposure either by prior infection or vaccination. Performed By: #### B HCG #### [address] [place], [place] [phone] Loading Unit Operator Seating: Israel Valiente MD Glucose [place] Scr 50gon 2023 Glucose [Mass/Vol] 86 mg/dL Normal 70-135 [facility] Comment on above: Performed By: #### G LUSC #### [address] [place] [address] Loading Unit Operator Seating: Israel Valiente MD #### HIVCMB, AHCV #### [facility] [address] [place], [place] [phone] Loading Unit Operator Seating: Maurice Alejandre MD Glu Administered via Glucola Normal [facility] Comment on above: Performed By: #### G LUSC #### [address] [place], [place] [phone] Loading Unit Operator Seating: Israel Valiente MD #### HIVCMYohan, AHCV #### [address] [phone] Loading Unit Operator Seating: Maurice Alejandre MD HIV Ag/Abon 8 HIV Ag/Ab Non-Reactive Normal [facility] Comment on above: Result Comment: No l aboratory evidence of HIV infection. If acute HIV infection is suspected, consider testing for HIV-1 RNA. Performed By: #### G LUSC #### [address] [place] [address] Loading Unit Operator Seating: Israel Valiente MD #### PAMCMYohan, AHCV #### [address] [phone] Loading Unit Operator Seating: Maurice Alejandre MD Hep C Abon 8 Hep C Ab Non-Reactive Normal [facility] Comment on above: Result Comment: The [...] HCV RNA by PCR. Performed By: #### G LUSC #### [facility] [address] [place] [address] [place] [address] Loading Unit Operator Seating: Israel Valiente MD #### HIVCMYohan, AHCV #### [id number] [place], [place] [phone] Loading Unit Operator Seating: Maurice Alejandre MD Profileon 4 Abs. Basophil 0.05 k/uL Normal 0.00-0.20 [facility] Comment on above: Performed By: #### B HCG #### [facility] [address] [place], [place] [address] Loading Unit Operator Seating: Israel Valiente MD Abs.Imm.Granulocyte 0.17 k/uL Normal 0.00-0.30 [facility] Comment on above: Performed By: #### B HCG #### [facility] [address] [place] [phone] Loading Unit Operator Seating: Israel Valiente MD Abs.Neutrophil (Seg) 7.42 k/uL Normal 1.50-8.10 [facility] Comment on above: Performed By: #### B HCG #### [address] [place] [phone] Loading Unit Operator Seating: Israel Valiente MD Basophils/100 WBC (Bld) 0 % Normal 0-2 [facility] Comment on above: Performed By: #### B HCG #### [address] [place] [address] Loading Unit Operator Seating: Israel Valiente MD Eosinophils (Bld) [#/Vol] 0.27 10*3/uL Normal 0.00-0.44 [facility] Comment on above: Performed By: #### B HCG #### [address] [place] [address] Loading Unit Operator Seating: Israel Valiente MD Eosinophils/100 WBC (Bld) 2 % Normal 1-4 [facility] Comment on above: Performed By: #### B HCG #### [facility] [address] [place] [address] [address]. [place], [place] [address] Loading Unit Operator Seating: Israel Valiente MD Erythrocyte distribution width (RBC) [Ratio] 12.4 % Normal 11.8-14.4 [facility] Comment on above: Performed By: #### B HCG #### [address] [place], [facility] Loading Unit Operator Seating: Israel Valiente MD Hematocrit (Bld) [Volume fraction] 37.8 % Normal 36.3-47.1 [facility] Comment on above: Performed By: #### B HCG #### [facility] [address] [place] [address] Loading Unit Operator Seating: Israel Valiente MD Hemoglobin (Bld) [Mass/Vol] 12.9 g/dL Normal 11.9-15.1 [facility] Comment on above: Performed By: #### B HCG #### [facility] [address] [place] [address] Loading Unit Operator Seating: Israel Valiente MD Immature granulocytes/100 WBC (Bld) 1 % High 0 [facility] Comment on above: Performed By: #### B HCG #### [facility] [address] [place], [facility] Loading Unit Operator Seating: Israel Valiente MD Lymphocytes (Bld) [#/Vol] 3.42 10*3/uL Normal 1.10-3.70 [facility] Comment on above: Performed By: #### B HCG #### [facility] [address] [place], [place] [phone] Loading Unit Operator Seating: Israel Valiente MD Lymphocytes/100 WBC (Bld) 28 % Normal 24-43 [facility] Comment on above: Performed By: #### B HCG #### [facility] [address] [place], [place] [phone] Loading Unit Operator Seating: Israel Valiente MD MCH (RBC) [Entitic mass] 31.9 pg Normal 25.2-33.5 [facility] Comment on above: Performed By: #### B HCG #### [facility] [address] [place] [address] Loading Unit Operator Seating: Israel Valiente MD MCHC (RBC) [Mass/Vol] 34.1 g/dL Normal 28.4-34.8 [facility] Comment on above: Performed By: #### B HCG #### [facility] [address] [place], [place] [phone] Loading Unit Operator Seating: Israel Valiente MD MCV (RBC) [Entitic vol] 93.6 fL Normal 82.6-102.9 [facility] Comment on above: Performed By: #### B HCG #### [facility] [address] [place], [place] [phone] Loading Unit Operator Seating: Israel Valiente MD Monocytes (Bld) [#/Vol] 0.73 10*3/uL Normal 0.10-1.20 [facility] Comment on above: Performed By: #### B HCG #### [address] [place], [place] [phone] Loading Unit Operator Seating: Israel Valiente MD Monocytes/100 WBC (Bld) 6 % Normal 3-12 [facility] Comment on above: Performed By: #### B HCG #### [facility] [address] [place] [address] [address]. [place], [place] [phone] Loading Unit Operator Seating: Israel Valiente MD Neutrophil (Seg) 63 % Normal 36-65 [facility] Comment on above: Performed By: #### B HCG #### [address] [place], [place] 3608883 Loading Unit Operator Seating: Israel Valiente MD NRBC Automated 0.0 per 100 WBC Normal 0.0 [facility] Comment on above: Performed By: #### B HCG #### [facility] [address] [place], [place] [phone] Loading Unit Operator Seating: Israel Valiente MD Platelet mean volume (Bld) [Entitic vol] 10.7 fL Normal 8.1-13.5 [facility] Comment on above: Performed By: #### B HCG #### [facility] [address] [place], [place] [phone] Loading Unit Operator Seating: Israel Valiente MD Platelets (Bld) [#/Vol] 277 10*3/uL Normal 138-453 [facility] Comment on above: Performed By: #### B HCG #### [facility] [facility] [address] [place], [place] [id number] Loading Unit Operator Seating: Israel Valiente MD RBC (Bld) [#/Vol] 4.04 10*6/uL Normal 3.95-5.11 [facility] Comment on above: Performed By: #### B HCG #### [facility] [address] [place], [place] [id number] Loading Unit Operator Seating: Israel Valiente MD WBC (Bld) [#/Vol] 12.1 10*3/uL High 3.5-11.3 [facility] Comment on above: Performed By: #### B HCG #### [address] [place] [address] Loading Unit Operator Seating: Israel Valiente MD Type + Scrnon 09-04 Type + Scrn Negative Normal [facility] Comment on above: Performed By: #### P RTYS #### [facility] [address] [place] [address] Dr. [place], [place] [id number] Loading Unit Operator Seating: Israel Valiente MD US OB LESS THAN [...] Lazaro Tucker MD 09/05/23 Final result Normal [facility] HCG, Quanton 08-27-2023 HCG, Quant 08549.0 mIU/mL High <5 [facility] Hospital Comment on above: Result Comment: Non-preg premeno <=5 Postmeno <=8 Male <=3 If HCG results do not concur with clinical observations, additional testing to confirm results is recommended. Performed By: #### B HCG #### [facility] [address] [place] [address] Loading Unit Operator Seating: Israel Valiente MD CT [facility] [address] [facility] CERVICAL SPINE WITHOUT CONTRAST [...] by: JOZEF SANTAMARIA Date: 2022-06-03 00:42 Normal [facility] CT FACIAL BONES WO CONon CT [...] by: JOZEF SANTAMARIA Date: 2022-06-03 00:25 Normal [facility] CT HEAD WO CONon 06-03-2022 CT [...] by: JOZEF SANTAMARIA Date: 2022-06-03 00:20 Normal [facility] Vital Signs Date Time Vital Sign Value Performing Clinician Faci lity 05-01-2024 22:46-0500 Body height 165.1 cm Roscoe Baker MD [facility] 05-01-2024 22:46-0500 Body mass index (BMI) [Ratio] 34.95 kg/m2 Roscoe Baker MD [facility] 05-01-2024 22:46-0500 Body temperature 98.1 [degF] Roscoe Baker MD [facility] 05-01-2024 22:46-0500 Body weight 95.25 kg Roscoe Baker MD [facility] 05-01-2024 22:46-0500 Diastolic blood pressure 77 mm[Hg] Roscoe Baker MD Work Phone: [facility] [employer] [facility] [employer] 05-01-2024 22:46-0500 Heart rate 95 /min Roscoe Baker MD [facility] 05-01-2024 22:46-0500 Respiratory rate 16 /min Roscoe Baker MD Work [facility] 05-01-2024 22:46-0500 SaO2% (BldA) [Mass fraction] 98 % Roscoe Baker MD Work Phone[facility] 05-01-2024 22:46-0500 Systolic blood pressure 113 mm[Hg] Roscoe Baker MD Work Phone: [facility] 03-21-2024 14:10-0500 Blood Pressure Location Crow Kirnus [facility] 03-21-2024 14:10-0500 Diastolic blood pressure 64 mm[Hg] Crow Kirnus [facility] 03-21-2024 14:10-0500 Heart rate 114 /min Crow Kirnus [facility] 03-21-2024 14:10-0500 Respiratory rate 16 /min Crow Kirnus [facility] 03-21-2024 14:10-0500 SaO2% (BldA) [Mass fraction] 96 % Crow Kirnus [facility] 03-21-2024 14:10-0500 Systolic blood pressure 102 mm[Hg] Crow Kirnus [facility] 10-11-2023 11:52-0400 Diastolic blood pressure 56 mm[Hg] [facility] 03 [facility] [email or web address] 10-11-2023 11:52-0400 Heart rate 66 /min [facility] 03 [facility] [email or web address] 10-11-2023 11:52-0400 Respiratory rate 18 /min [facility] 03 [facility] 10-11-2023 11:52-0400 Systolic blood pressure 107 mm[Hg] [facility] 03 [facility] 10-11-2023 10:15-0400 Body temperature 97.39 [degF] [facility] 03 [facility] Encounters Encounter Date Encounter Type Care Provider Facility Start: 06-24-2024 End: 06-25-2024 Pre-admission assessment Derek Hodge [facility] Start: 05-01-2024 End: 05-01-2024 Emergency department patient visit Roscoe Baker MD Work Phone: [facility] Comment on above: Encounter for post s urgical wound check (Primary Dx) Start: 04-24-2024 End: 04-24-2024 ambulatory ROBINA Jimenes LINDA [facility] Start: 04-24-2024 End: 04-24-2024 Subsequent hospital visit by physician Bianka Watt NP Work Phone: [facility] Comment on above: Abnormal bruising; S/P primary low transverse Start: 04-19-2024 End: 04-22-2024 Evaluation and management of inpatient [facility] Start: 04-18-2024 End: 04-20-2024 ambulatory [facility] Start: 04-15-2024 End: 04-15-2024 ambulatory [facility] Start: 04-07-2024 End: 04-07-2024 ambulatory [facility] Start: 04-02-2024 End: 04-02-2024 ambulatory JESENIA KOROMA [facility] Start: 03-31-2024 End: 03-31-2024 ambulatory [facility] Start: 03-24-2024 End: 03-24-2024 ambulatory [facility] Start: 03-24-2024 End: 03-24-2024 Subsequent hospital visit by physician Bianka Watt NP Work Phone: [facility] Comment on above: 36 weeks gestation o f Start: 03-24-2024 End: 03-24-2024 ambulatory SID DYSON [facility] Start: 03-21-2024 End: 03-21-2024 ambulatory SID DYSON Facility:[facility] Start: 03-21-2024 End: 03-21-2024 Patient encounter procedure Crow Briones [facility] Start: 03-17-2024 End: 03-17-2024 ambulatory SID DYSON [facility] Start: 03-10-2024 End: 03-12-2024 Subsequent hospital visit by physician Sid Watt CNM Work Phone: [facility] Comment on above: Syncope, unspecified syncope type Start: 03-10-2024 End: 03-12-2024 ambulatory [facility] [place] [facility] Start: 03-03-2024 End: 03-03-2024 ambulatory SID DYSON [facility] Start: 02-29-2024 End: 02-29-2024 ambulatory JOSEPH Alcal[facility]RUBIOCATALINO [place] [facility] Start: 02-04-2024 End: 02-04-2024 [facility] Start: 01-15-2024 ambulatory SID [facility] Start: 01-14-2024 End: 01-14-2024 ambulatory [facility] Start: 01-14-2024 End: 01-14-2024 Subsequent hospital visit by physician Bianka Finley APRN - PHAN Work Phone: [facility] Comment on above: 26 weeks gestation o f Start: 01-14-2024 End: 01-14-2024 ambulatory [facility] [place] [facility] Start: 12-11-2023 ambulatory Koki Dc [facility] Start: 11-29-2023 End: 11-29-2023 ambulatory BIANKA FINLEY [facility] Start: 10-31-2023 End: 11-02-2023 ambulatory [facility] [place] [facility] Start: 10-15-2023 End: 10-15-2023 ambulatory [facility] [place] [facility] Start: 10-11-2023 End: 10-11-2023 ambulatory SID [place] [facility] Start: 10-11-2023 End: 10-11-2023 Subsequent hospital visit by physician [facility] Op Treatment 03 [facility] ([facility] Start: 09-05-2023 End: 09-05-2023 ambulatory [facility]ID [place] [facility] Start: 09-05-2023 End: 09-05-2023 ambulatory BIANKA [facility] Start: 08-27-2023 End: 08-27-2023 ambulatory SID [place] [facility] Start: 06-03-2022 End: 06-03-2022 ambulatory VOLODYMYR ARGELIA Facility: Procedures Date Procedure Procedure Detail Performing Clinician Start: 04-24-2024 Blood count hemoglobin Robina E Pool A PRN - CNM Work Phone: Start: 01-14-2024 Glucose tolerance test gtt 3 specimens Sid Dyson ELEVATOR CONSTRUCTOR SUPERVISOR - CNM Work Phone: Start: 10-11-2023 Comprehensive metabolic panel Sid Dyson ELEVATOR CONSTRUCTOR SUPERVISOR - CNM Work Phone: Start: 03-01-2023 Microscopic observation [Identifier] in Cervix by Cyto stain [facility] 03 H/O: section S/P primar y low transverse Bianka Finley ELEVATOR CONSTRUCTOR SUPERVISOR - RIPRAP MAN Work Phone: Plan of Treatment Date Care Activity Detail Author Start: 02-03-2034 DTaP/Tdap/Td vaccine (6 - Td or Tdap) DTaP/Tdap/Td vaccine (6 - Td or Tdap) [facility] [employer] Start: 03-01-2026 Screening for malign ant neoplasm of cervix Pap smear [facility] [employer] Start: 08-26-2024 Depression Monitoring [facility] Start: 06-02-2024 End: 06-02-2024 ambulatory 06/02/2024 9:15 AM EST Visit [facility] [address] [place] [address] KielSid, ELEVATOR CONSTRUCTOR SUPERVISOR - CNM [address] [place] [address] 6wk PPV [facility] Comment on above: 6wk PPV Start: 05-08-2024 End: 05-08-2024 ambulatory 05/08/2024 11:30 AM EST Visit [facility] [address] [place] [phone] KielSid ELEVATOR CONSTRUCTOR SUPERVISOR - CNM [address] [place] [id number] 1wk Incicsion check [facility] Comment on above: 1wk Incicsion check Start: 04-28-2024 End: 04-28-2024 Patient encounter procedure 04/28/2024 10:15 AM EST Routine [address] [place] [address] Kiel Sid ELEVATOR CONSTRUCTOR SUPERVISOR - CN[address] [address] *C [facility] Comment on above: *C Start: 04-15-2024 End: 04-15-2024 Patient encounter procedure 04/15/2024 9:30 AM EST Routine [facility] [address] [place] [address] KielSid, ELEVATOR CONSTRUCTOR SUPERVISOR - CNM [address] [place] [id number] OB BPP [facility] Comment on above: OB BPP Start: 04-15-2024 End: 04-15-2024 Professional / ancillary services management 04/15/2024 9:00 AM EST Ancillary Procedure [facility] Part of [address] [place] [address] OB BPP [facility] Part of [facility] Comment on above: OB BPP Start: 04-07-2024 End: 04-07-2024 Patient encounter procedure 04/07/2024 10:00 AM EST Routine [facility] Part of [address] [place] [address] Sid Dyson APRN - YUVAL [address] [place] [address] OB BPP [facility] Part [facility] Comment on above: OB BPP Start: 04-07-2024 End: 04-07-2024 Professional / ancillary services management 04/07/2024 9:30 AM EST Ancillary Procedure [facility] Part of [address] [place] [address] OB BPP [facility] Part [facility] Comment on above: OB BPP Start: 03-31-2024 End: 03-31-2024 Patient encounter procedure 03/31/2024 1:00 PM EST Routine [facility] Part of [address] [place] [address] Sid Dyson APRN - YUVAL [address] [place] [address] OB BPP [facility] Part [facility] Comment on above: OB BPP Start: 03-31-2024 End: 03-31-2024 Professional / ancillary services management 03/31/2024 11:30 AM EST Ancillary Procedure [facility] Part of [address] [place] [address] OB BPP [facility] Part of [facility] Comment on above: OB BPP Start: 03-24-2024 End: 03-24-2024 Patient encounter procedure 03/24/2024 9:30 AM EST Routine [facility] Part of [address] [place] [address] Sid Dyson APRN - CNRolando [address] [place] [address] OB BPP [facility] Part of [facility] Comment on above: OB BPP Start: 03-24-2024 End: 03-24-2024 Professional / ancillary services management 03/24/2024 9:00 AM EST Ancillary Procedure [facility] Part of [address] [place] [address] OB BPP [facility] Part [facility] Comment on above: OB BPP Start: 03-17-2024 End: 03-17-2024 Patient encounter procedure 03/17/2024 9:30 AM EST Routine [facility] Part of [address] [place] [address] Sid Dyson APRN - YUVAL [address] [place] [address] OB BPP [facility] Comment on above: OB BPP Start: 03-17-2024 End: 03-17-2024 Professional / ancillary services management 03/17/2024 8:30 AM EST Ancillary Procedure [facility] Part of [address] [place] [address] OB BPP [facility] Comment on above: OB BPP Start: 02-20-2024 Respiratory Syncytia l Virus (RSV) or age 60 yrs+ (1 - Risk 1-dose series) Respiratory Syncytial Virus (RSV) or age 60 yrs+ (1 - Risk 1-dose series) ISABELA [facility] Start: 02-07-2024 End: 02-07-2024 Patient encounter procedure 02/07/2024 9:30 AM EDT Routine [facility] Part of [address] [place] [phone] Sid Dyson APRN - CNM 27 [facility] [address] [place] [phone] ob / 30 week / tdap [facility] Comment on above: ob / 30 week / tdap Start: 02-07-2024 End: 02-07-2024 Professional / ancillary services management 02/07/2024 9:00 AM EDT Ancillary Procedure [facility] [address] [place] [phone] ob / 30 week [facility] Comment on above: ob / 30 week Start: 02-04-2024 End: 02-04-2024 Patient encounter procedure 02/04/2024 5:00 PM EDT Routine [facility] Part of [address] [place] [address] Sid Dyson APRN - CNM [address] [place], [place] [address] ob / 30 week / tdap [facility] Comment on above: ob / 30 week / tdap Start: 02-04-2024 End: 02-04-2024 Professional / ancillary services management 02/04/2024 4:30 PM EDT Ancillary Procedure [facility] Part of [address] [place] [address] ob / 30 week [facility] Comment on above: ob / 30 week Start: 01-16-2024 Tdap Vaccine during Tdap Vaccine during [facility] Start: 01-06-2024 COVID-19 Vaccine ( season) COVID-19 Vaccine ( season) [facility] Start: 12-06-2023 Influenza vaccination B ON [facility] Start: 11-29-2023 End: 11-29-2023 Patient encounter procedure 11/29/2023 10:30 AM EDT Routine [facility] Part of [address] [place] [phone] Sid Dyson APRN - CNM [address] [place] [address] [address] [place] [phone] ob / 20 week [facility] Comment on above: ob / 20 week Start: 11-29-2023 End: 11-29-2023 Professional / ancillary services management 11/29/2023 9:30 AM EDT Ancillary Procedure [facility] Part of [address] [place] [phone] ob / 20 week [facility] Comment on above: ob / 20 week Start: 10-29-2023 End: 10-29-2023 Patient encounter procedure 10/29/2023 5:45 PM EDT Routine [facility] [address] [place] [phone] Sid Dyson APRN - CNM [address] [place] [address] [address] [place] [phone] ob [facility] Comment on above: ob Start: 10-18-2023 End: 10-18-2023 Patient encounter procedure 10/18/2023 4:30 PM EDT Routine [facility] [address] [place] [phone] ob / weight check KENDRICK Pt [facility] Comment on above: ob / weight check KENDRICK Pt Start: 2015 DTaP/Tdap/Td vaccine (1 - Tdap) DTaP/Tdap/Td vaccine (1 - Tdap) [facility] Start: 2015 Hepatitis B vaccine (1 of 3 - 19+ 3-dose series) Hepatitis B vaccine (1 of 3 - 19+ 3-dose series) [facility] Start: 2009 Varicella vaccine (1 of 2 - 13+ 2-dose series) Varicella vaccine (1 of 2 - 13+ 2-dose series) [facility] Start: 2002 Pneumococcal 0-64 ye ars Vaccine (1 of 2 - PCV) Pneumococcal 0-64 years Vaccine (1 of 2 - PCV) [facility] Start: 1997 Varicella vaccine (1 of 2 - 2-dose childhood series) Varicella vaccine (1 of 2 - 2-dose childhood series) [facility] Start: 1996 COVID-19 Vaccine (#1) COVID-19 Vacci ne (#1) [facility] Start: 1996 Hepatitis B vaccine (1 of 3 - 3-dose series) Hepatitis B vaccine (1 of 3 - 3-dose series) [facility] End: 03-24-2024 Culture, Strep B Screen, Vaginal/Rectal [facility] Comment on above: 1 Occurrences starti ng 03/24/2024 until 03/24/2024 End: 05-01-2024 Culture, Wound (with Gram Stain) [facility] Comment on above: One Time for 1 Occur rences starting 05/01/2024 until 05/01/2024 End: 03-10-2024 Extended cardiac holter monitor (3 days-14 day) [facility] Comment on above: 1 Occurrences starti ng 03/10/2024 until 03/10/2024 Immunizations Immunization Date Immunization Notes Care Provider Nima aguilar 02-04-2024 tetanus toxoid, redu lily diphtheria toxoid, and acellular pertussis vaccine, adsorbed Sid Dyson APRN - CNM Work Phone: [facility] Payers Date Payer Category Payer Medicaid [id number] 1. [id number] 1996 Unknown [id number] 2.16.84 [id number] 1996 Unknown [id number] 2.16.8 40.1.273852.3.579.2.727 1996 Unknown [id number] 2.16.8 40.1.461386.3.579.2.173 1996 Unknown [id number] 2.16.8 40.1.276822.3.579.2.173 1996 Unknown [id number] 2.16.8 40.1.135988.3.579.2.173 1996 Unknown [id number] 2.16.8 40.1.636340.3.579.2.173 1996 Unknown [id number] 2.16.8 40.1.025876.3.579.2.173 1996 Unknown [id number] 2.16.8 40.1.134344.3.579.2.173 1996 Unknown [id number] 2.16.8 40.1.331928.3.579.2.173 1996 Unknown [id number] 2.16.8 40.1.307490.3.579.2.173 1996 Unknown [id number] 2.16.8 40.1.508731.3.579.2.173 1996 Unknown [id number] 2.16.8 40.1.791661.3.579.2.173 1996 Unknown [id number] 2.16.8 40.1.767612.3.579.2.173 1996 Unknown [id number] 2.16.8 40.1.624256.3.579.2.173 1996 Unknown [id number] 2.16.8 40.1.320887.3.579.2.173 1996 Unknown [id number] 2.16.8 40.1.761399.3.579.2.173 1996 Unknown [id number] 2.16. 840.1.205572.3.579.2.175 1996 Unknown [id number] 2.16. 840.1.569076.3.579.2.175 1996 Unknown [id number] 2.16. 840.1.581276.3.579.2.175 1996 Unknown [id number] 2.16. 840.1.647850.3.579.2.175 1996 Unknown [id number] 2.16. 840.1.433244.3.579.2.175 1996 Unknown [id number] 2.16. 840.1.999290.3.579.2.175 1996 Unknown [id number] 2.16. 840.1.572562.3.579.2.175 1996 Unknown [id number] 2.16. 840.1.882297.3.579.2.175 1996 Unknown [id number] 2.16. 840.1.271919.3.579.2.175 Unknown [id number] Social History Date Type Detail Facility Start: 05-07-2022 End: 04-02-2024 Tobacco smoking status MEIS Smokes tobacco daily [facility] Start: 05-07-2022 History of tobacco use Cigarette Smo ker [facility] Start: 10-11-2023 End: 05-01-2024 Alcohol intake Ex-drinker (finding) [facility] Start: 10-11-2023 End: 04-19-2024 History of Social function [facility] Start: 10-11-2023 End: 04-19-2024 Tobacco use panel [facility] How hard is it for y ou to pay for the very basics like food, housing, medical care, and heating Not hard at all [facility] (I/We) worried haley er (my/our) food would run out before (I/we) got money to buy more. Never true [facility] At any time in the past 12 months, were you homeless or living in custodial [including now]? No [facility] Start: 07-25-2023 ISABELA JULIAN [employer] Start: 1995 Sex Assigned At Not on file B ON [employer] Start: 12-27-2023 End: 04-02-2024 Tobacco use and exposure Smokeless tobacco non-user [facility] Start: 03-21-2024 Tobacco smoking status Heavy t obacco smoker (finding) [facility] The thought of gil ellis myself has occurred to me Never [employer] Functional Status Date Assessment Result Facility 03-21-2024 Functional Status N/A [facility] Hospital Discharge instructions 05-01-2024 Discharge InstructionsAttachments Note Date & Type Note Facility 05-01-2024 Hospital Discharg e instructions Roscoe Baker MD - 05/01/2024 11:06 PM EST Keep clean with soap and water use Hibiclens daily in the shower. ABD dressings as needed for drainage follow-up with your OB provider soon as possible. He must seek medical attention immediately she develop any fevers chills sweats erythema or drainage from wound or other acute concerns The following attachments cannot be sent through Care Everywhere.Wound Check (Nepali)documented in this encounter [facility] [employer] Evaluation + Plan note Radiology Note Date & Type Note Facility Evaluation + Plan note Future Appointments Appointment Date:06/24/2024 02:15:00 PM Scheduled Provider:Derek Hodge PA-C Location:[facility]Cardiology Clinic Appointment Type:Cardiology Follow Up ([facility]) Future Scheduled TestsEcho Transthoracic Complete 03/22/24 [facility] Evaluation note Note Date & Type Note Facility Evaluation note Diagnosis 26 weeks gestation of state, incidental [facility] this [facility] Evaluation note Note Date & Type Note Facility Evaluation note Diagnosis Syncope, unspecified syncope type documented in this encounter [facility] Evaluation note Note Date & Type Note Facility Evaluation note Diagnosis 36 weeks gestation of state, incidental documented in this encounter [facility] Evaluation note Note Date & Type Note Facility Evaluation note Diagnosis Abnormal bruising Other symptoms involving skin and integumentary tissues S/P primary low transverse delivery, without mention of indication, unspecified as to episode of care documented in this encounter [facility] Evaluation note Note Date & Type Note Facility Evaluation note Diagnosis Encounter for post surgical wound check- Primary documented in this encounter [facility] course Narrative Note Date & Type Note Facility Hospital course Narrative No data available for this section [facility] Hospital Discharge instructions Note Date & Type Note Facility Hospital Discharge instructions No data available for this section [facility] Progress note Note Date & Type Note Facility Progress note No data available for this section [facility] Summary Purpose Family History No Family History Records FoundNo Family History Records Found No data available for this section No Family History Records FoundNo Family History Records FoundNo Family History Records Found No data available for this section Advance Directives Date Activated Date Inactivated Comments 02/29/2024 10:10 PM 03/01/2024 6:47 AM Date Activated Date Inactivated Comments 02/29/2024 10:10 PM 03/01/2024 6:47 AM Date Activated Date Inactivated Comments 04/22/2024 9:53 AM 04/22/2024 2:25 PM Date Activated Date Inactivated Comments 04/19/2024 6:22 PM 04/20/2024 8:04 AM Date Activated Date Inactivated Comments 04/02/2024 12:49 PM 04/02/2024 6:12 PM Date Activated Date Inactivated Comments 02/29/2024 10:10 PM 03/01/2024 6:47 AM Reason for Referral Specialty Diagnoses / Procedures Referred By Zurdo proctor Referred To Contact Cardiology Diagnoses Syncope, unspecified syncope type Procedures Extended cardiac holter monitor (3 days-14 day) GA EXTERNAL ECG REC>48HR<7D REVIEW & INTERPRETATION GA EXTERNAL ECG REC>48HR<7D RECORDING GA EXTERNAL ECG REC>7D<15D RECORDING GA EXTERNAL ECG REC>7D<15D REVIEW & INTERPRETATION Sid Dyson, ROSA MARIA NAVARROM [address] [place] [address] Referral ID Status Reason Start Date Expiration Date Visits Re quested Visits Authorized [id number] Closed 03/10/2024 03/10/2025 1 1 Additional Source Comments INFORMATION SOURCE (unrecogn ized section and content) DATE CREATED AUTHOR 06/05/2022 [facility] DATE CREATED AUTHOR AUTHOR'S ORGANIZ ATION 12/13/2023 [facility] DATE CREATED AUTHOR AUTHOR'S ORGANIZ ATION 03/26/2024 [facility] DATE CREATED AUTHOR AUTHOR'S ORGANIZ ATION 05/08/2024 [facility] DATE CREATED AUTHOR AUTHOR'S ORGANIZ ATION 06/02/2024 [facility] Care Teams (unrecognized sec tion and content) Grain Buyer Relationship Specialty Start Date End Date Bianka Finley APRN - RIPRAP MAN PCP - General 05/15/22 Grain Buyer Relationship Specialty Start Date End Date Bianka Finley APRN - RIPRAP MAN [address] [place] [address] PCP - General 05/15/22 Grain Buyer Relationship Specialty Start Date End Date Bianka Finley APRN - RIPRAP MAN [address] [place] [address] PCP - General 05/15/22 Grain Buyer Relationship Specialty Start Date End Date Bianka Finley APRN - RIPRAP MAN [address] [place] [address] PCP - General 05/15/22 Grain Buyer Relationship Specialty Start Date End Date Bianka Finley APRN - RIPRAP MAN [address] [employer] [place] [address] PCP - General 05/15/22 Grain Buyer Relationship Specialty Start Date End Date Bianka Finley, ROSA MARIA - RIPRAP MAN [address] [place] [id number] PCP - General 05/15/22 Reason for Visit (unrecogniz ed section and content) Specialty Diagnoses / Procedures Referred By Contac t Referred To Contact Cardiology Diagnoses Syncope, unspecified syncope type Procedures Extended cardiac holter monitor (3 days-14 day) GA EXTERNAL ECG REC>48HR<7D REVIEW & INTERPRETATION GA EXTERNAL ECG REC>48HR<7D RECORDING GA EXTERNAL ECG REC>7D<15D RECORDING GA EXTERNAL ECG REC>7D<15D REVIEW & INTERPRETATION Sid Dyson APRN - YUVAL [address] [place] [address] Referral ID Status Reason Start Date Expiration Date Visits Re quested Visits Authorized [id number] Closed 03/10/2024 03/10/2025 1 1 Reason Comments Wound Check PT. Reports c-sectio n the . Vacuum seal placed on incision on 04/28 by OB. Pt. Reports foul odor & bleeding & was told to remove dressing by OB earlier today. Ordered Prescriptions (unrec ognized section and content) Prescription Sig Dispensed Refills Start Date End Da te chlorhexidine gluconate (HIBICLENS) 4 % SOLN external solution Use daily while bathing as directed 473 mL 05/01/2024 FOR RECORDS PERTAINING TO PATIENTS WHO ARE [...] BE BASED ON THE PRIMARY CLINICAL RECORDS. [employer] [facility]. provides no warranty or guarantee of the accuracy or completeness of information in this document.
--- NOTE | 2024-06-27 21:14 | ED.GENADUL1 ---
HPI HPI - General Adult General Chief complaint: Skin/Abscess/Foreign Body Stated complaint: 12-15 C SECTION/LEAKING Time Seen by Provider: 06/27/24 20:39 Source: patient Mode of arrival: walk-in History of Present Illness HPI narrative: 29-year-old female to the emergency department with chief complaint of nonhealing wound. Patient reports that she had a 2 months ago at [facility]. The was performed by INDUCTOR TESTER however she has not followed up with them as she was under the care of a student truck driver. She reports she has followed up with her student truck driver several times. She has been on antibiotics a few times as well as some escalating wound care. She reports that the left lateral margin of her scar occasionally has a yellow discharge and has not healed as well as the rest of the incision. She does not have any fever, sweats, chills. No pain associated. No purulent discharge. Related Data Home Medications ?Medication ?Instructions ?Recorded ?Confirmed sertraline 100 mg tablet 100 mg PO DAILY 08/25/23 03/11/24 Previous Rx's ?Medication ?Instructions ?Recorded cephalexin 500 mg capsule 500 mg PO Q6H 7 days #28 caps 06/27/24 Allergies Allergy/AdvReac Type Severity Reaction Status Date / Time No Known Drug Allergies Allergy Verified 10/07/23 22:37 Opioid HPI Opioid Management Most Recent Opioid Data: No Data to Display Review of Systems ROS Status of ROS 10 or more systems reviewed and unremarkable except as noted in history and below PFSH PFSH Social History Little interest or pleasure in doing things: not at all Feeling down, depressed, or hopeless: not at all Exam Narrative Exam Narrative: VITALS: I have reviewed the triage vital signs. GENERAL: Well developed, well appearing adult in no acute distress. NEURO: Alert and oriented. Moves all extremities. Face is symmetric and expressive. EYES: PERRL. No scleral icterus or conjunctival injection. No discharge. HENT: Normocephalic, atraumatic. Hearing is grossly intact. Nares grossly patent and without discharge. Mucous membranes moist. NECK: No JVD. Patient moves neck without restriction. GI/: Abdomen is soft and non-tender. Normoactive bowel sounds. Low horizontal scar present. Wound is well-approximated. The left lateral margin of the wound has some erythema, no discrete opening. Nothing could be expressed. No area of fluctuance. Some mild erythema about the left lateral margin of the wound. No crepitus. EXTREMITIES: Symmetric muscle bulk. No joint swelling. No clubbing, cyanosis, or deformity. SKIN: Warm and dry. Normal turgor. No rash or lesions appreciated. PSYCH: Mood, affect, and interaction is appropriate to the setting. Constitutional Vital Signs, click to edit/add: Last Vital Signs Temp 98.1 F 06/27/24 20:45 Pulse 104 H 06/27/24 20:45 Resp 18 06/27/24 20:45 BP 134/87 06/27/24 20:45 Pulse Ox 96 06/27/24 20:45 Course Vital Signs Vital signs: Vital Signs Temperature 98.1 F 06/27/24 20:45 Pulse Rate 104 H 06/27/24 20:45 Respiratory Rate 18 06/27/24 20:45 Blood Pressure 134/87 06/27/24 20:45 Pulse Oximetry 96 06/27/24 20:45 Temperature 98.1 F 06/27/24 20:45 Pulse Rate 104 H 06/27/24 20:45 Respiratory Rate 18 06/27/24 20:45 Blood Pressure 134/87 06/27/24 20:45 Pulse Oximetry 96 06/27/24 20:45 Medical Decision Making [facility] Narrative Medical decision making narrative: Well-appearing 29-year-old female to the emergency department with chief complaint of nonhealing surgical wound. Vital stable, the patient is afebrile. She came to the emergency department today for second opinion as she is not happy with the care she has received at [facility] from her student truck driver/INDUCTOR TESTER. There is no dehiscence of the wound. There are some slight erythema about the lateral margin where she says she occasionally gets some straw-colored discharge. No area of fluctuance appreciated. No significant tenderness. Possible mild cellulitis versus inflammatory changes at that left margin of the wound. Will cover with Keflex. Her greatest risk factor for wound complication is her smoking, we discussed smoking cessation. She is requesting second opinion which I informed her would be best by a surgeon who performs this procedure. She is given a referral to Dr. Harris for second opinion at her request. Return precautions were discussed. All questions were answered. The patient was discharged home. Medical Records Medical records reviewed: Yes I reviewed the patient's medical records Discharge Plan Discharge Chief Complaint: Skin/Abscess/Foreign Body Clinical Impression: Non-healing surgical wound Patient Disposition: Home, Self-Care Time of Disposition Decision: 21:08 Condition: Good Mode of Transportation: Private Vehicle Prescriptions / Home Meds: New cephalexin 500 mg capsule 500 mg PO Q6H 7 Days Qty: 28 0RF No Action sertraline 100 mg tablet 100 mg PO DAILY Print Language: Vietnamese Instructions: Surgical Site Infections (ED) Additional Instructions: Call the office of your primary care doctor to arrange for follow-up within the above-stated timeframe. Your ED visit was focused on your acute issue and does not replace primary care. You should review your labs, imaging, and diagnoses from this ED visit with your primary care physician. There may be non-emergent/ incidental findings that need further evaluation. You should review your vital signs including blood pressure with your PCP. If you were prescribed medications you should discuss possible side-effects and drug interactions with your pharmacist. Call 911 or go to the nearest Emergency Department if you develop any new or worsening symptoms. Follow-up with Dr. Harris for a second opinion. Take antibiotic as prescribed. Referrals: Foster Harris DO [Physician] - 1 week Physician,Non-Staff, [Primary Care Provider] - 1 week
== END 2024-06-27 21:35 | disposition home or self-care (01) ==
PROVIDERS: Emergency Provider Student in an Organized Health Care Education/Training Program
DX: T81.89XA Other complications of procedures, not elsewhere classified, initial encounter (principal); F17.200 Nicotine dependence, unspecified, uncomplicated
CPT/HCPCS: 99283

== ENCOUNTER 2024-08-07 19:16 | Emergency (ER) | payer MEDICAID, SELFPAY ==
[2024-08-07 19:41] VITALS: PULSE 88; TEMP 36.8; O2SAT 97; BMI 34.5
--- NOTE | 2024-08-07 19:59 | ED.GENADUL1 ---
Documented by User: BC Hernandez 08/07/24 21:57 HPI HPI - General Adult General Chief complaint: Abdominal Pain Stated complaint: NAUSEA, STOMACH PAIN Time Seen by Provider: 08/07/24 19:50 Source: patient Mode of arrival: walk-in History of Present Illness HPI narrative: Patient is a 29-year-old female who presents to the emergency department for a 1 week history of right-sided abdominal pain. She states she had a that was an emergency 3 months ago. She states she believed it was a botched because she has continued to have intermittent pain and bleeding. She states she is afraid to follow-up with her OB because she believes that the procedure was messed up. She is currently having mild vaginal bleeding. She reports nausea. She has had no fevers, vomiting or urinary symptoms. She has not taken any medications prior to arrival. Her 3-month-old is being evaluated for unrelated complaints as well. Related Data Home Medications ?Medication ?Instructions ?Recorded ?Confirmed sertraline 100 mg tablet 100 mg PO DAILY 08/25/23 03/11/24 Previous Rx's ?Medication ?Instructions ?Recorded ondansetron 4 mg disintegrating 4 mg PO Q6H PRN nausea and 08/07/24 tablet vomiting #20 tabs Allergies Allergy/AdvReac Type Severity Reaction Status Date / Time No Known Drug Allergies Allergy Verified 08/07/24 19:47 Opioid HPI Opioid Management Most Recent Opioid Data: No Data to Display Review of Systems ROS Constitutional Denies: fever or chills Ears, nose, mouth, and throat Denies: throat pain or nasal congestion Cardiovascular Denies: chest pain Respiratory Denies: shortness of breath or cough Gastrointestinal Reports: abdominal pain and nausea; Denies: vomiting or diarrhea Musculoskeletal Denies: back pain Integumentary/Breast Denies: rash Neurological Denies: numbness in extremities or weakness in extremities Hematologic/Lymphatic Denies: easy bruising or easy bleeding PFSH PFSH Social History Little interest or pleasure in doing things: not at all Feeling down, depressed, or hopeless: not at all Exam Narrative Exam Narrative: Gen.: Awake, alert, in no distress Head: Normocephalic, atraumatic ENT: Moist mucous membranes Respiratory: No respiratory distress Gastrointestinal: Abdomen is soft, nondistended and tender to palpation in the right lower quadrant with no guarding or rebound Extremities: Moves extremities equally Psych: Normal mood and affect Neuro: No focal neuro deficit Skin: Warm, dry, intact Constitutional Vital Signs, click to edit/add: Last Vital Signs Temp 98.2 F 08/07/24 19:41 Pulse 62 08/07/24 21:40 Resp 16 08/07/24 21:40 BP 110/72 08/07/24 21:40 Pulse Ox 99 08/07/24 21:40 O2 Del Method Room Air 08/07/24 21:40 Course Vital Signs Vital signs: Vital Signs Temperature 98.2 F 08/07/24 19:41 Pulse Rate 16 L 08/07/24 19:41 Respiratory Rate 18 08/07/24 19:41 Pulse Oximetry 97 08/07/24 19:41 Oxygen Delivery Method Room Air 08/07/24 19:41 Temperature 98.2 F 08/07/24 19:41 Pulse Rate 62 08/07/24 21:40 Respiratory Rate 16 08/07/24 21:40 Blood Pressure 110/72 08/07/24 21:40 Pulse Oximetry 99 08/07/24 21:40 Oxygen Delivery Method Room Air 08/07/24 21:40 Medical Decision Making MDM Narrative Medical decision making narrative: Patient is complaining of right lower quadrant abdominal pain. A workup was ordered with Toradol Zofran in the ER and laboratory studies and urine specimen are unremarkable. CT is pending at this time and case is turned over to attending physician for disposition. Her vital signs are stable and abdomen is soft and benign at this time. SHARED APC VISIT, PHYSICIAN ATTESTATION: [id number] I performed a substantive part of the MDM during the patient?s E/M visit. I personally evaluated and examined the patient. I personally made or approved the documented management plan and acknowledge its risk of complications. Medical Records Medical records reviewed: Yes I reviewed the patient's medical records Lab Data Lab results reviewed: Yes I reviewed the patient's lab results Labs: Lab Results 08/07/24 08/07/24 Range/Units 20:05 20:10 WBC 9.6 (4.0-11.0) 10^3/uL RBC 4.39 (4.20-5.40) 10^6/uL Hgb 12.6 (12.0-16.0) g/dL Hct 38.7 (36.0-48.0) % MCV 88.2 (81.0-99.0) fL MCH 28.7 (26.7-34.0) pg MCHC 32.6 (29.9-35.2) g/dL RDW 14.2 (11.0-15.0) % Plt Count 344 (150-450) 10^3/uL MPV 9.6 (9.5-13.5) fL Neut % (Auto) 44.2 (43.0-75.0) % Lymph % (Auto) 42.5 (20.5-60.0) % Becker % (Auto) 5.2 (1.7-12.0) % Eos % (Auto) 6.9 (0.9-7.0) % Baso % (Auto) 0.6 (0.2-2.0) % Neut # (Auto) 4.2 (1.4-6.5) 10^3/uL Lymph # (Auto) 4.1 H (1.2-3.8) 10^3/uL Becker # (Auto) 0.5 (0.3-0.8) 10^3/uL Eos # (Auto) 0.7 (0.0-0.7) 10^3/uL Baso # (Auto) 0.1 (0.0-0.1) 10^3/uL Abs Immat Gran (auto) 0.06 H (0.00-0.03) 10^3/uL Imm/Tot Granulo (auto) 0.6 H (0.0-0.5) % Sodium 143 (136-145) mmol/L Potassium 3.9 (3.5-5.1) mmol/L Chloride 107 (98-107) mmol/L Carbon Dioxide 27.8 (21.0-32.0) mmol/L Anion Gap 12.1 BUN 10.0 (7.0-18.0) mg/dL Creatinine 0.81 (0.55-1.02) mg/dL Est GFR ( Amer) >60 (>=60 mL/min/1.73m^2) Est GFR (Non-Af Amer) >60 (>=60 mL/min/1.73m^2) BUN/Creatinine Ratio 12.3 Glucose 87 (74-106) mg/dL Calcium 9.0 (8.5-10.1) mg/dL Total Bilirubin 0.2 (0.2-1.0) mg/dL AST 12 L (15-37) U/L ALT 31 (14-59) U/L Alkaline Phosphatase 78 (46-116) U/L Total Protein 7.0 (6.4-8.2) g/dL Albumin 3.7 (3.4-5.0) g/dL Globulin 3.3 g/dL Albumin/Globulin Ratio 1.1 Lipase 36.0 (16.0-77.0) U/L Serum HCG, Qual Negative (NEGATIVE) Urine Color Brown A (YELLOW) Urine Clarity Cloudy A (CLEAR) Urine pH 6.0 (5.0-9.0) Ur Specific Willow 1.015 (1.005-1.025) Urine Protein 30 A (NEG/TRACE) mg/dL Urine Glucose (UA) Negative (NEGATIVE) mg/dL Urine Ketones Negative (NEGATIVE) mg/dL Urine Occult Blood Large A (NEGATIVE) Urine Nitrite Negative (NEGATIVE) Urine Bilirubin Negative (NEGATIVE) Urine Urobilinogen 0.2 (0.2-1.0) EU/dL Ur Leukocyte Esterase Negative (NEGATIVE) Urine RBC >100 A (0-2) #/HPF Urine WBC None seen (NONE SEEN) #/HPF Ur Squamous Epith Cells Rare (NONE/RARE) #/LPF Urine Crystals None seen (None Seen) #/HPF Urine Bacteria None seen (NONE SEEN) #/HPF Urine Casts None seen (NONE SEEN) #/LPF Urine Mucus None seen (NONE SEEN) Ur Culture Indicated? No Imaging Data CT scan - abdomen: Attestation: I have reviewed the pertinent imaging results. Discharge Plan Discharge Chief Complaint: Abdominal Pain Clinical Impression: Abdominal pain Patient Disposition: Home, Self-Care Time of Disposition Decision: 23:03 Condition: Good Mode of Transportation: Private Vehicle Prescriptions / Home Meds: New ondansetron 4 mg tablet,disintegrating 4 mg PO Q6H PRN (Reason: nausea and vomiting) Qty: 20 0RF No Action sertraline 100 mg tablet 100 mg PO DAILY Print Language: Kinyarwanda Instructions: Abdominal Pain (ED) Additional Instructions: Follow-up with your flexo operator Referrals: Physician,Non-Staff, [Primary Care Provider] - 1 week Documented by User: Bret Cabrera MD 08/07/24 23:05 HPI HPI - General Adult General Chief complaint: Abdominal Pain Stated complaint: NAUSEA, STOMACH PAIN Time Seen by Provider: 08/07/24 19:50 Related Data Home Medications ?Medication ?Instructions ?Recorded ?Confirmed sertraline 100 mg tablet 100 mg PO DAILY 08/25/23 03/11/24 Previous Rx's ?Medication ?Instructions ?Recorded ondansetron 4 mg disintegrating 4 mg PO Q6H PRN nausea and 08/07/24 tablet vomiting #20 tabs Allergies Allergy/AdvReac Type Severity Reaction Status Date / Time No Known Drug Allergies Allergy Verified 08/07/24 19:47 Opioid HPI Opioid Management Most Recent Opioid Data: No Data to Display PFSH PFSH Social History Little interest or pleasure in doing things: not at all Feeling down, depressed, or hopeless: not at all Exam Constitutional Vital Signs, click to edit/add: Last Vital Signs Temp 98.2 F 08/07/24 19:41 Pulse 62 08/07/24 21:40 Resp 16 08/07/24 21:40 BP 110/72 08/07/24 21:40 Pulse Ox 99 08/07/24 21:40 O2 Del Method Room Air 08/07/24 21:40 Course Vital Signs Vital signs: Vital Signs Temperature 98.2 F 08/07/24 19:41 Pulse Rate 16 L 08/07/24 19:41 Respiratory Rate 18 08/07/24 19:41 Pulse Oximetry 97 08/07/24 19:41 Oxygen Delivery Method Room Air 08/07/24 19:41 Temperature 98.2 F 08/07/24 19:41 Pulse Rate 62 08/07/24 21:40 Respiratory Rate 16 08/07/24 21:40 Blood Pressure 110/72 08/07/24 21:40 Pulse Oximetry 99 08/07/24 21:40 Oxygen Delivery Method Room Air 08/07/24 21:40 Medical Decision Making MDM Narrative Medical decision making narrative: Patient is complaining of right lower quadrant abdominal pain. A workup was ordered with Toradol, Zofran in the ER and laboratory studies and urine specimen are unremarkable. CT is pending at this time and case is turned over to attending physician for disposition. Her vital signs are stable and abdomen is soft and benign at this time. SHARED APC VISIT, PHYSICIAN ATTESTATION: [id number] I performed a substantive part of the MDM during the patient?s E/M visit. I personally evaluated and examined the patient. I personally made or approved the documented management plan and acknowledge its risk of complications. JK 11:00 PM workup including CAT scan is negative and she was prescribed Zofran. She was recommended to follow-up with her flexo operator. Treatment diagnosis and follow-up were discussed with the patient. Differential Diagnosis Differential Diagnosis: Constipation, diverticulitis, dysfunctional uterine bleed Lab Data Labs: Lab Results 08/07/24 08/07/24 Range/Units 20:05 20:10 WBC 9.6 (4.0-11.0) 10^3/uL RBC 4.39 (4.20-5.40) 10^6/uL Hgb 12.6 (12.0-16.0) g/dL Hct 38.7 (36.0-48.0) % MCV 88.2 (81.0-99.0) fL MCH 28.7 (26.7-34.0) pg MCHC 32.6 (29.9-35.2) g/dL RDW 14.2 (11.0-15.0) % Plt Count 344 (150-450) 10^3/uL MPV 9.6 (9.5-13.5) fL Neut % (Auto) 44.2 (43.0-75.0) % Lymph % (Auto) 42.5 (20.5-60.0) % Becker % (Auto) 5.2 (1.7-12.0) % Eos % (Auto) 6.9 (0.9-7.0) % Baso % (Auto) 0.6 (0.2-2.0) % Neut # (Auto) 4.2 (1.4-6.5) 10^3/uL Lymph # (Auto) 4.1 H (1.2-3.8) 10^3/uL Becker # (Auto) 0.5 (0.3-0.8) 10^3/uL Eos # (Auto) 0.7 (0.0-0.7) 10^3/uL Baso # (Auto) 0.1 (0.0-0.1) 10^3/uL Abs Immat Gran (auto) 0.06 H (0.00-0.03) 10^3/uL Imm/Tot Granulo (auto) 0.6 H (0.0-0.5) % Sodium 143 (136-145) mmol/L Potassium 3.9 (3.5-5.1) mmol/L Chloride 107 (98-107) mmol/L Carbon Dioxide 27.8 (21.0-32.0) mmol/L Anion Gap 12.1 BUN 10.0 (7.0-18.0) mg/dL Creatinine 0.81 (0.55-1.02) mg/dL Est GFR ( Amer) >60 (>=60 mL/min/1.73m^2) Est GFR (Non-Af Amer) >60 (>=60 mL/min/1.73m^2) BUN/Creatinine Ratio 12.3 Glucose 87 (74-106) mg/dL Calcium 9.0 (8.5-10.1) mg/dL Total Bilirubin 0.2 (0.2-1.0) mg/dL AST 12 L (15-37) U/L ALT 31 (14-59) U/L Alkaline Phosphatase 78 (46-116) U/L Total Protein 7.0 (6.4-8.2) g/dL Albumin 3.7 (3.4-5.0) g/dL Globulin 3.3 g/dL Albumin/Globulin Ratio 1.1 Lipase 36.0 (16.0-77.0) U/L Serum HCG, Qual Negative (NEGATIVE) Urine Color Brown A (YELLOW) Urine Clarity Cloudy A (CLEAR) Urine pH 6.0 (5.0-9.0) Ur Specific Willow 1.015 (1.005-1.025) Urine Protein 30 A (NEG/TRACE) mg/dL Urine Glucose (UA) Negative (NEGATIVE) mg/dL Urine Ketones Negative (NEGATIVE) mg/dL Urine Occult Blood Large A (NEGATIVE) Urine Nitrite Negative (NEGATIVE) Urine Bilirubin Negative (NEGATIVE) Urine Urobilinogen 0.2 (0.2-1.0) EU/dL Ur Leukocyte Esterase Negative (NEGATIVE) Urine RBC >100 A (0-2) #/HPF Urine WBC None seen (NONE SEEN) #/HPF Ur Squamous Epith Cells Rare (NONE/RARE) #/LPF Urine Crystals None seen (None Seen) #/HPF Urine Bacteria None seen (NONE SEEN) #/HPF Urine Casts None seen (NONE SEEN) #/LPF Urine Mucus None seen (NONE SEEN) Ur Culture Indicated? No Imaging Data CT scan - abdomen: Radiologist's impression: No acute process Discharge Plan Discharge Chief Complaint: Abdominal Pain Clinical Impression: Abdominal pain Patient Disposition: Home, Self-Care Time of Disposition Decision: 23:03 Condition: Good Mode of Transportation: Private Vehicle Prescriptions / Home Meds: New ondansetron 4 mg tablet,disintegrating 4 mg PO Q6H PRN (Reason: nausea and vomiting) Qty: 20 0RF No Action sertraline 100 mg tablet 100 mg PO DAILY Print Language: Kinyarwanda Instructions: Abdominal Pain (ED) Additional Instructions: Follow-up with your flexo operator Referrals: Physician,Non-Staff, [Primary Care Provider] - 1 week
[2024-08-07 20:05] VITALS: BP 131/80
[2024-08-07] MEDS: ONDANSETRON PF 4 MG/2 ML VIAL IV (20:13)
[2024-08-07] MEDS: KETOROLAC TROMETHAMINE 30 MG/ML VIAL IVP (20:13)
[2024-08-07 20:23] LABS: Bilirubin Urine NEGATIVE (NEGATIVE); Blood Urine LARGE (NEGATIVE); Clarity Urine CLOUDY (CLEAR); Color Urine BROWN (YELLOW); Glucose Urine UA NEGATIVE (NEGATIVE); Ketones Urine NEGATIVE (NEGATIVE); Leukocyte Esterase Urine NEGATIVE (NEGATIVE); Nitrite Urine NEGATIVE (NEGATIVE); Protein Urine 30 mg/dL (NEG/TRACE); Specific Gravity Urine 1.015 (1.005-1.025); Urobilinogen Urine 0.2 EU/dL (0.2-1.0)
[2024-08-07 20:26] LABS: Bacteria Urine NONE SEEN #/HPF (NONE SEEN); Cast Seen? NONE SEEN #/LPF (NONE SEEN); Crystals Seen? None Seen #/HPF (None Seen); Mucus Urine NONE SEEN (NONE SEEN); RBC Urine >100 #/HPF (0-2); Squamous Epithelial Cell Urine RARE #/LPF (NONE/RARE); Urine Culture Indicated NO; WBC Urine NONE SEEN #/HPF (NONE SEEN)
[2024-08-07 20:37] LABS: Basophils Absolute Auto 0.1 10^3/uL (0.0-0.1); Basophils Percent Auto 0.6 % (0.2-2.0); Eosinophils Absolute Auto 0.7 10^3/uL (0.0-0.7); Eosinophils Percent Auto 6.9 % (0.9-7.0); Hematocrit 38.7 % (36.0-48.0); Hemoglobin 12.6 g/dL (12.0-16.0); Immature Granulocytes Abs Auto 0.06 10^3/uL (0.00-0.03); Immature Granulocytes Pct Auto 0.6 % (0.0-0.5); Lymphocytes Absolute Auto 4.1 10^3/uL (1.2-3.8); Lymphocytes Percent Auto 42.5 % (20.5-60.0); Mean Corpuscular HGB Conc 32.6 g/dL (29.9-35.2); Mean Corpuscular Hemoglobin 28.7 pg (26.7-34.0); Mean Corpuscular Volume 88.2 fL (81.0-99.0); Mean Platelet Volume 9.6 fL (9.5-13.5); Monocytes Absolute Auto 0.5 10^3/uL (0.3-0.8); Monocytes Percent Auto 5.2 % (1.7-12.0); Neutrophils Absolute Auto 4.2 10^3/uL (1.4-6.5); Neutrophils Percent Auto 44.2 % (43.0-75.0); Platelet Count 344 10^3/uL (150-450); Red Blood Count 4.39 10^6/uL (4.20-5.40); Red Cell Distribution Width 14.2 % (11.0-15.0); White Blood Count 9.6 10^3/uL (4.0-11.0)
[2024-08-07 20:50] LABS: HCG Qualitative NEGATIVE (NEGATIVE); Internal Control Within Normal Limits
[2024-08-07 20:54] LABS: Alanine Aminotransferase 31 U/L (14-59); Albumin Globulin Ratio 1.1; Albumin Level 3.7 g/dL (3.4-5.0); Alkaline Phosphatase 78 U/L (46-116); Anion Gap 12.1; Aspartate Amino Transferase 12 U/L (15-37); BUN Creatinine Ratio 12.3; Bilirubin Total 0.2 mg/dL (0.2-1.0); Carbon Dioxide 27.8 mmol/L (21.0-32.0); Chloride 107 mmol/L (98-107); Estimated GFR (African America >60 (>=60 mL/min/1.73m^2); Estimated GFR (Non-African Ame >60 (>=60 mL/min/1.73m^2); Globulin 3.3 g/dL; Glucose 87 mg/dL (74-106); Potassium 3.9 mmol/L (3.5-5.1); Sodium 143 mmol/L (136-145)
[2024-08-07 21:40] VITALS: BP 110/72; PULSE 62; O2SAT 99
== END 2024-08-07 23:26 | disposition home or self-care (01) ==
PROVIDERS: Physician Assistant; Emergency Provider Emergency Medicine
DX: R10.31 Right lower quadrant pain (principal)
CPT/HCPCS: 36415; 74177; 80053; 81001; 83690; 84703; 85025; 96374; 96375; 99285; J1885; J2405; Q9967

== ENCOUNTER 2024-09-25 21:26 | Emergency (ER) | payer MEDICAID, SELFPAY ==
--- OUTSIDE RECORDS SUMMARY | 2024-05-01 23:48 | XMS_ITS ---
Author Name Auto Generated Organization OH[facility] Care Team Providers Care Computer Security Specialist Name Role Phone AMOS, JUSTEEN Referring Unavailable PICKARD, BIANKA D Primary Care Unavailable PICKARD, BIANKA D Primary Care Unavailable [...] Unavailable PICKARD, BIANKA D Primary Care Unavailable Dc DDS, Tazeen Attending Unavailable AMOS, JUSTEEN Referring Unavailable PICKARD, BIANKA D Primary Care Unavailable POOL, RAHAT E Referring Unavailable PICKARD, BIANKA D Primary Care [...] Unavailable PICKARD, BIANKA D Primary Care Unavailable D'ABREAU, JOSEPH Admitting Unavailable D'ABREAU, JOSEPH Attending Unavailable PICKARD, BIANKA D Primary Care Unavailable JESENIA KOROMA Admitting Unavailabl e JESENIA KOROMA Attending Unavailabl e PICKARD, BIANKA D Primary Care Unavailable PICKARD, BIANKA D Primary Care Unavailable VICKI BAKERISSA Attending Unavailable AMOS, JUSTEEN Admitting Unavailable AMOS, JUSTEEN Attending Unavailable PICKARD, BIANKA D Primary Care Unavailable JESENIA KOROMA Referring Unavailabl e PICKARD, BIANKA D Primary Care Unavailable Kirnus, Crow D Attending Unavailable Kirnus, Crow D Admitting Unavailable AMOS, JUSTEEN Referring Unavailable PROBLEMS DATE TYPE CONDITION / CODE ATTENDING STATUS [facility] 05/01/2024 Unknown Encounter for ot her specified surgical aftercare / Z48.89(ICD-10) VICKI BAKERISSA [facility] 04/24/2024 Unknown Spontaneous ecchymoses / R23.3(ICD-10) [facility] 04/24/2024 Unknown History of uteri ne scar from previous surgery / Z98.891(ICD-10) [facility] 04/19/2024 Unknown Other specified diseases and conditions complicating childbirth / O99.892(ICD-10) SID TRINIDAD [facility] 04/15/2024 Unknown 39 weeks gestati on of / Z3A.39(ICD-10) [facility] 04/07/2024 Unknown 38 weeks gestati on of / Z3A.38(ICD-10) [facility] 04/02/2024 Admitting diagnosis Premature rupture of membranes, unspecified as to length of time between rupture and onset of labor, unspecified weeks of gestation / O42.90(ICD-10) JESENIA KOROMA [facility] 03/31/2024 Unknown 37 weeks gestati on of / Z3A.37(ICD-10) [facility] 03/24/2024 Unknown Supervision of h igh risk , unspecified, third trimester / O09.93(ICD-10) [facility] 03/24/2024 Unknown Obesity complica ting , unspecified trimester / O99.210(ICD-10) [facility] 03/24/2024 Unknown 36 weeks gestati on of / Z3A.36(ICD-10) [facility] 03/24/2024 Unknown Encounter for ot her specified screening / Z36.89(ICD-10) [facility] 03/17/2024 Unknown 35 weeks gestati on of / Z3A.35(ICD-10) [facility] 03/10/2024 Unknown Syncope and elizabeth apse / R55(ICD-10) SID TRINIDAD [facility] 03/10/2024 Unknown 34 weeks gestati on of / Z3A.34(ICD-10) [facility] 03/03/2024 Unknown 33 weeks gestati on of / Z3A.33(ICD-10) [facility] 02/29/2024 Admitting diagnosis Other specified related conditions, unspecified trimester / O26.899(ICD-10) [facility] 02/29/2024 Admitting diagnosis Unspecified abdominal pain / R10.9(ICD-10) [facility] 02/04/2024 Unknown 29 weeks gestati on of / Z3A.29(ICD-10) [facility] 01/15/2024 Admitting diagnosis 26 weeks gestation of / Z3A.26(ICD-10) [facility] 01/14/2024 Unknown 26 weeks gestati on of / Z3A.26(ICD-10) [facility] 11/29/2023 Unknown 20 weeks gestati on of / Z3A.20(ICD-10) [facility] 11/29/2023 Unknown Encounter for screening for malformations / Z36.3(ICD-10) NA [facility] 10/31/2023 Unknown 15 weeks gestati on of / Z3A.15(ICD-10) SID TRINIDAD Active [facility] PROCEDURES No Procedure Records Found RESULTS CULT,WOUND Observed: 05/01/2024 10:55 PM Status: F Source: [facility] Specimen Description .INCISI ON .ABDOMEN SWAB C SECION SITE Direct Exam RARE NEUTROPHILS RARE GRAM POSITIVE COCCI IN PAIRS RARE GRAM NEGATIVE RODS Culture ENTEROBACTER CLOACAE COMPLEX LIGHT GROWTH Identification by MALDI-TOF ENTEROCOCCUS FAECALIS LIGHT GROWTH Identification by MALDI-TOF Report Status FINAL 05/04/2024 SUSCEPTIBILITY Organism ENCLCX Method ARMIJO JOHNSTON Ceftriaxone SUSCEPTIBLE SUSCEPTIBILITY Organism ENCLCX Method WILLA Cefazolin >=64 RESISTANT Gentamicin <=1 SUSCEPTIBLE Levofloxacin <=0.12 SUSCEPTIBLE Piperacillin/Tazobactam <=4 SUSCEPTIBLE Tobramycin <=1 SUSCEPTIBLE Trimethoprim/Sulfa <=20 SUSCEPTIBLE SUSCEPTIBILITY Organism ENTEROCOCCUS FAECALIS Method WILLA Ampicillin <=2 SUSCEPTIBLE Vancomycin 1 SUSCEPTIBLE Performed By: #### [facility] #### [id number] [place] [address] Forging Engineer: Maurice Alejandre MD HGB/HCT Collected: 11:33 AM Status: F Source: [facility] TYPE CODE TESTS RESULT OUT OF RANGE REFERENCE UNITS LAB HGB(LOINC) Hemoglobin 9.9 Low 11.9-15.1 g/dL LAB HCT(LOINC) Hematocrit 29.6 Low 36.3-47.1 % Performed By: #### #### [facility] [address] [place] [address] Forging Engineer: Israel Valiente MD CBC WITH DIFF Collected: 04/22/2024 6:29 AM Status: F Source: [facility] TYPE CODE TESTS RESULT OUT OF RANGE REFERENCE UNITS LAB WBC(LOINC) WBC Count 11.3 3.5-11.3 k/uL LAB RBC(LOINC) RBC Count 2.70 Low 3.95-5.11 m/uL LAB HGB(LOINC) Hemoglobin 8.6 Low 11.9-15.1 g/dL LAB HCT(LOINC) Hematocrit 26.1 Low 36.3-47.1 % LAB MCV(LOINC) MCV 96.7 82.6-102.9 fL LAB MCH(LOINC) MCH 31.9 25.2-33.5 pg LAB MCHC(LOINC) MCHC 33.0 28.4-34.8 g/dL LAB RDW(LOINC) RDW 13.9 11.8-14.4 % LAB PLT(LOINC) Platelet Count 276 138-453 k/uL LAB MPVX(LOINC) MPV 9.9 8.1-13.5 fL LAB NRBCS(LOINC) NRBC Automated 0.0 0.0 per 100 WBC LAB SEG(LOINC) Neutrophil (Seg) 51 36-65 % LAB LYM(LOINC) Lymphocyte 36 24-43 % LAB MON(LOINC) Monocyte 7 3-12 % LAB EO(LOINC) Eosinophil 3 1-4 % LAB BASO(LOINC) Basophil 1 0-2 % LAB IGRAN(LOINC) Immature Granulocyte 3 High 0 % LAB ASEG(LOINC) Abs.Neutrophil (Seg) 5.73 1.50-8.10 k/uL LAB ALYM(LOINC) Abs. Lymph 4.10 High 1.10-3.70 k/uL LAB AMONO(LOINC) Abs. Monocyte 0.76 0.10-1.20 k/u L LAB AEO(LOINC) Abs. Eosinophil 0.29 0.00-0.44 k/u L LAB ABASO(LOINC) Abs. Basophil 0.06 0.00-0.20 k/u L LAB AIGRAN(LOINC) Abs.Imm.Granulo cyte 0.39 High 0.00-0.30 k/uL Performed By: #### CDP #### [facility] [address] [place] [address] Forging Engineer: Israel Valiente MD CBC Collected: 04/21/2024 4:40 AM Status: F Source: [facility] TYPE CODE TESTS RESULT OUT OF RANGE REFERENCE UNITS LAB WBC(LOINC) WBC Count 18.0 High 3.5-11.3 k/uL LAB RBC(LOINC) RBC Count 2.82 Low 3.95-5.11 m/uL LAB HGB(LOINC) Hemoglobin 9.3 Low 11.9-15.1 g/dL LAB HCT(LOINC) Hematocrit 27.1 Low 36.3-47.1 % LAB MCV(LOINC) MCV 96.1 82.6-102.9 fL LAB MCH(INC) MCH 33.0 25.2-33.5 pg LAB MCHC(INC) MCHC 34.3 28.4-34.8 g/dL LAB RDW(INC) RDW 13.7 11.8-14.4 % LAB PLT([facility]) Platelet Count 328 138-453 k/uL LAB MPVX([facility]) MPV 10.2 8.1-13.5 fL LAB NRBCS([facility]) NRBC Automated 0.0 0.0 per 100 WBC Performed By: #### CBC #### [facility] [address] [place] [address] [place] [address] Forging Engineer: Israel Valiente MD TYPE + SCREEN Observed: 04/19/2024 6:20 PM Status: F Source: [facility] Sample Expiration 04/22/2024 ,2359 Arm Band Number [id number] ABO/Rh(D) O POSITIVE Antibody Screen NEGATIVE Performed By: #### TYS #### [facility] [address] [place] [address] [place] [address] Forging Engineer: Israel Valiente MD CBC WITH DIFF Collected: 04/19/2024 6:20 PM Status: F Source: [facility] TYPE CODE TESTS RESULT OUT OF RANGE REFERENCE UNITS LAB WBC(INC) WBC Count 15.1 High 3.5-11.3 k/uL LAB RBC(INC) RBC Count 3.51 Low 3.95-5.11 m/uL LAB HGB(INC) Hemoglobin 11.3 Low 11.9-15.1 g/dL LAB HCT(INC) Hematocrit 33.2 Low 36.3-47.1 % LAB MCV(INC) MCV 94.6 82.6-102.9 fL LAB MCH(INC) MCH 32.2 25.2-33.5 pg LAB MCHC(LOINC) MCHC 34.0 28.4-34.8 g/dL LAB RDW(LOINC) RDW 14.1 11.8-14.4 % LAB PLT(LOINC) Platelet Count 343 138-453 k/uL LAB MPVX(LOINC) MPV 10.4 8.1-13.5 fL LAB NRBCS(LOINC) NRBC Automated 0.0 0.0 per 100 WBC LAB SEG(LOINC) Neutrophil (Seg) 71 High 36-65 % LAB LYM(LOINC) Lymphocyte 25 24-43 % LAB MON(LOINC) Monocyte 2 Low 3-12 % LAB EO(LOINC) Eosinophil 1 1-4 % LAB IGRAN(LOINC) Immature Granulocyte 1 High 0 % LAB BASO(LOINC) Basophil 0 0-2 % LAB ASEG(LOINC) Abs.Neutrophil (Seg) 10.72 High 1.50-8.10 k/uL LAB ALYM(LOINC) Abs. Lymph 3.78 High 1.10-3.70 k/uL LAB AMONO(LOINC) Abs. Monocyte 0.30 0.10-1.20 k/u L LAB AEO(LOINC) Abs. Eosinophil 0.15 0.00-0.44 k/u L LAB AIGRAN(LOINC) Abs.Imm.Granulo cyte 0.15 0.00-0.30 k/uL LAB ABASO(LOINC) Abs. Basophil 0.00 0.0-0.2 k/uL LAB MORPH(LOINC) Morphology Normal Performed By: #### CDP #### [facility] [address] [place] [address] Forging Engineer: Israel Valiente MD OB 1 OR MORE FETUS LIMITED Observed: 04/18/2024 6:32 PM Status: F Source: [facility] EXAMINATION: 3rd TRIMESTER OBSTETRIC ULTRASOUND 04/18/2024 TECHNIQUE: Transabdominal 3rd trimester obstetric pelvic ultrasound was performed with color Doppler flow evaluation. COMPARISON: 04/15/2024 HISTORY: ORDERING SYSTEM PROVIDED HISTORY: High-risk in third trimester TECHNOLOGIST PROVIDED HISTORY: LEANDER - post dates FINDINGS: Single intrauterine with cephalic positioning. Posterior placental position. LEANDER measures 17.1 cm. cardiac activity measures 135 beats per minute. body and limb movements present. BPD: 10 cm-41 weeks, 0 days HC: 34 cm-39 weeks, 1 day AC: 35.4 cm-39 weeks, 2 days FL: 7.8 cm-39 weeks, 5 days Right ovary: Not visualized Left ovary: Not visualized Estimated weight: 3840 g +/-576 g corresponding to 64th percentile Free fluid: None Cervical length measures approximately 3.6 cm Measurements: Estimated gestational age by current ultrasound: 39 weeks, 6 days Estimated gestational by LMP/prior ultrasound: 40 weeks, 2 days Estimated Due Date: 04/19/2024 IMPRESSION: Single live intrauterine with estimated gestational age 39 weeks, 6 days. Interpreted by: Kiet Hernandez MD Signed by: Kiet Hernandez MD 04/18/24 Final result US BIOPHYSICAL PROFILE WO NON STRESS TESTING Observed: 04/16/2024 4:13 PM Status: F Source: [facility] Table formatting from the or iginal result was not included. Janett Huerta on 04/15/2024 9:11 AM EST BPP- 8/8 HR: 146 bpm LEANDER: 16.5 cm Posterior placenta. Cephalic presentation. Active movements. Interpreted by: Lazaro Tucker MD Signed by: Lazaro Tucker MD 04/16/24 Final result US BIOPHYSICAL PROFILE WO NON STRESS TESTING Observed: 04/08/2024 8:07 AM Status: F Source: [facility] Table formatting from the or iginal result was not included. Janett Huerta on 04/07/2024 9:46 AM EST BPP- 8/8 HR: 151 bpm LEANDER: 17.4 cm Posterior placenta. Cephalic presentation. Active movements. Interpreted by: Lazaro Tucker MD Signed by: Lazaro Tucker MD 04/08/24 Final result US OB 1 OR MORE FETUS LIMITED Observed: 04/02/2024 4:43 PM Status: F Source: [facility] EXAMINATION: TRIMESTER OBSTETRIC ULTRASOUND 04/02/2024 TECHNIQUE: Transabdominal obstetric pelvic ultrasound was performed. COMPARISON: 03/31/2024 HISTORY: ORDERING SYSTEM PROVIDED HISTORY: check LEANDER TECHNOLOGIST PROVIDED HISTORY: check LEANDER 38 weeks FINDINGS: Limited exam to check amniotic fluid index. Amniotic fluid index is 17.12. Fetus appears to be in cephalic presentation. heart rate 129 beats per minute. IMPRESSION: LEANDER 17.12. Interpreted by: Ej Babin MD Signed by: Ej Babin MD 04/02/24 Final result URINALYSIS, ROUTINE Collected: 04/02/20 12:20 PM Status: F Source: [facility] TYPE CODE TESTS RESULT OUT OF RANGE REFERENCE UNITS LAB UCO(LOINC) Color Yellow YEL LAB UTU(LOINC) Clarity, Urine Clear CLEAR LAB UGL(LOINC) Glucose,Semi- qnt,Ur NEGATIVE NEG mg/dL LAB UBI(LOINC) Bilirubin, SemiQt,Ur NEGATIVE NEG LAB UKE(LOINC) Ketones, Urine NEGATIVE NEG mg/dL LAB USG(LOINC) Spec. [place],Ur 1.010 1.010-1.020 LAB UHB(LOINC) Blood, Urine NEGATIVE NEG LAB UPH(LOINC) PH,Ur 6.5 5.0-9.0 LAB UPR(LOINC) Protein, Semi-qnt,Ur NEGATIVE NEG mg/dL LAB UUR(LOINC) Urobilinogen, Ur Normal 0.0-1.0 EU/dL LAB UNI(LOINC) Nitrite,Ur NEGATIVE NEG LAB ULE(LOINC) Leukocyte Esterase TRACE Abnormal NEG Performed By: #### UA, UMICA O #### [address] [place] [address] Forging Engineer: Israel Valiente MD URINALYSIS,MICRO Collected: 12:20 PM Status: F Source: [facility] TYPE CODE TESTS RESULT OUT OF RANGE REFERENCE UNITS LAB UWBC(LOINC) Urine WBC's 0 TO 2 0-5 /HPF LAB URBC(LOINC) Urine RBC's 0 TO 2 0-2 /HPF LAB EPITH(LOINC) Epithelial cells 20 TO 50 0-25 /HPF Performed By: #### UA, UMICA O #### [facility] [address] [place] [address] Forging Engineer: Israel Valiente MD US BIOPHYSICAL PROFILE WO NON STRESS TESTING Observed: 04/01/2024 2:11 PM Status: F Source: [facility] Table formatting from the or iginal result was not included. HuertaJanett on 03/31/2024 12:04 PM EST BPP- 8/8 HR: 145 bpm LEANDER: 15.7 cm Posterior placenta. Cephalic presentation. Active movements. Interpreted by: Lazaro Tucker MD Signed by: Lazaro Tucker MD 04/01/24 Final result US OB FOLLOW UP TRANSABDOMINAL APPROACH Observed: 03/24/2024 11:59 AM Status: F Source: [facility] Table formatting from the or iginal result was not included. Janett Huerta on 03/24/2024 9:38 AM EST BPP- 8/8 36.5 WK IUP EFW:44.8% (6lb 7oz) CL:not visualized d/t head position LEANDER:16.8cm HR:153 bpm Posterior placenta, cephalic presentation Active movements Interpreted by: Lazaro Tucker MD Signed by: Lazaro Tucker MD 03/24/24 Final result US BIOPHYSICAL PROFILE WO NON STRESS TESTING Observed: 03/24/2024 11:59 AM Status: F Source: [facility] Table formatting from the or iginal result was not included. Janett Huerta on 03/24/2024 9:38 AM EST BPP- 8/8 36.5 WK IUP EFW:44.8% (6lb 7oz) CL:not visualized d/t head position LEANDER:16.8cm HR:153 bpm Posterior placenta, cephalic presentation Active movements Interpreted by: Lazaro Tucker MD Signed by: Lazaro Tucker MD 03/24/24 Final result RULE OUT GRP.B STREP Observed: 9:55 AM Status: F Source: [facility] Specimen Description .VAGINA Special Requests Site: Genital Culture NEGATIVE FOR GROUP B STREPTOCOCCI Report Status FINAL 03/27/2024 Performed By: #### JOHNSON ### # [facility] [employer] [address] [place] [id number] Forging Engineer: Maurice Alejandre MD [facility] [address] [place] [address] Forging Engineer: Israel Valiente MD HEART AND VASCULAR OFFICE/CLINIC NOTE Observed: 03/21/2024 2:50 PM Status: F Source: [facility] Heart and Vascular Office/Cl inic Note Chief Complaint est care-syncope mulptile times History of Present Illness The patient is a 28-year-old female who presents for cardiac evaluation due to syncope. She is a 36 weeks . She states she has passed out several times. She states that this can happen without any rhyme or reason, both at sitting up, standing position, as well as laying down position. Her prior cardiac workup included 7 days event monitor which showed sinus rhythm and sinus tachycardia. Apparently, the patient passed out during the monitoring time. Review of Systems PHQ Score Initial Depression Screen Score: 0 SCORE ROS - Provider Constitutional: no fever, no chills, no fatigue Skin:no rash, no lesions ENMT: no ear pain, no sore throat, no congestion. Respiratory: no shortness of breath, no cough, no wheezing. Cardiovascular: no chest pain, no palpitations, no edema. Gastrointestinal: no nausea, no vomiting, no diarrhea, no GI bleeding. Genitourinary: no dysuria, no frequencyno hematuria Musculoskeletal: no back pain, no trauma. Neurologic: no headache, no dizziness, no numbness, no weakness. Psychiatric: no sleeping problems, no irritability, no mood swings/depression. Heme/Lymph: no bleeding tendency, no bruising tendency, no petechiae, Allergy/Immuno logic: no seasonal allergies, no food allergies, no recurrent infections Physical Exam Vitals & Measurements HR: 114(Peripheral) RR: 16 BP: 102/64 BP: 105/70(Sitting) BP: 102/66(Standing) BP: 110/70(Supine) SpO2: 96% HT: 66 in HT: 167 cm WT: 106.4 kg WT: 234.572 lb BMI: 38.15 General: alert, no acute distress Neck: Supple, noJVD nocarotid bruit Cardiovascular: regular rate and rhythm, no murmur normal peripheral perfusion Respiratory: Lungs CTAB, respirations non labored Extremities: no edema left lower extremity. no edema right lower extremity Neurological: oriented x 4, LOC appropriate for age, speech normal Skin: Warm, dry, intact- no rash or concerning lesions Procedure ECG today demonstrates sinus tachycardia at 113 bpm. Assessment/Plan 1. Syncope (R55: Syncope and collapse) Orthostatics today showed evidence of postural tachycardia with heart rate increasing from 104 to 132 BPM. This is likely consistent with POTS. Ordered: ECG 12 Lead Adult 2. POTS (postural orthostatic tachycardia syndrome) (G90.A: Postural orthostatic tachycardia syndrome [POTS]) This may be related to , however, the patient may have underlying POTS. At this point, would suggest compression stockings and adequate hydration. Following delivery, pharmacological measures may be undertaken, if still symptomatic. Follow-up No qualifying data available Problem List/Past Medical History Ongoing No qualifying data Historical No qualifying data Medications amoxicillin 500 mg oral tablet Vitafusion Vitamin C Zinc Zofran Zoloft 100 mg Tab Allergies No Known Allergies Social History Alcohol Never., 03/16/2024 Substance Abuse Never., 03/16/2024 Tobacco 10 or more cigarettes (1/2 pack or more)/day in last 30 days Tobacco Use:., 03/21/2024 Family History Stroke: Mother and Father. Result Comment: Electronical ly Signed By: Anali MODI, Crow [place]\.br\Date and Time Signed: 03/21/24 14:51 EST US BIOPHYSICAL PROFILE WO NON STRESS TESTING Observed: 03/17/2024 9:43 AM Status: F Source: [facility] Table formatting from the or iginal result was not included. Janett Huerta on 03/17/2024 8:45 AM EST BPP- 8/8 HR: 143 bpm LEANDER: 16.8 cm Posterior placenta. Cephalic presentation. Active movements. Interpreted by: Lazaro Tucker MD Signed by: Lazaro Tucker MD 03/17/24 Final result US BIOPHYSICAL PROFILE WO NON STRESS TESTING Observed: 03/10/2024 2:52 PM Status: F Source: [facility] Table formatting from the or iginal result was not included. Janett Huerta on 03/10/2024 11:23 AM EST BPP- 8/8 HR: 138 bpm LEANDER: 16.7 cm Posterior placenta. Cephalic presentation. Active movements. Interpreted by: Lazaro Tucker MD Signed by: Lazaro Tucker MD 03/10/24 Final result US BIOPHYSICAL PROFILE WO NON STRESS TESTING Observed: 03/03/2024 4:22 PM Status: F Source: [facility] Table formatting from the or iginal result was not included. aJnett Huerta on 03/03/2024 11:00 AM EDT BPP- 8/8 HR: 144 bpm LEANDER: 17.4 cm Posterior placenta. Cephalic presentation. Active movements. Interpreted by: Lazaro Tucker MD Signed by: Lazaro Tucker MD 03/03/24 Final result URINALYSIS, ROUTINE Collected: 02/29/20 10:10 PM Status: F Source: [facility] TYPE CODE TESTS RESULT OUT OF RANGE REFERENCE UNITS LAB UCO(LOINC) Color Yellow YEL LAB UTU(LOINC) Clarity, Urine Clear CLEAR LAB UGL(LOINC) Glucose,Semi-q nt,Ur NEGATIVE NEG mg/dL LAB UBI(LOINC) Bilirubin, SemiQt,Ur NEGATIVE NEG LAB UKE(LOINC) Ketones, Urine NEGATIVE NEG mg/dL LAB USG(LOINC) Spec. [place],Ur 1.020 1.010-1.020 LAB UHB(LOINC) Blood, Urine NEGATIVE NEG LAB UPH(LOINC) PH,Ur 7.0 5.0-9.0 LAB UPR(LOINC) Protein, Semi-qnt,Ur NEGATIVE NEG mg/dL LAB UUR(LOINC) Urobilinogen,U r Normal 0.0-1.0 EU/dL LAB UNI(LOINC) Nitrite,Ur NEGATIVE NEG LAB ULE(LOINC) Leukocyte Esterase NEGATIVE NEG Performed By: #### UA #### [facility] [address] [place] [address] Forging Engineer: Israel Valiente MD OB FOLLOW UP TRANSABDOMINAL APPROACH Observed: 02/05/2024 8:51 AM Status: F Source: [facility] Table formatting from the or iginal result was not included. Janett Huerta on 02/04/2024 5:01 PM EDT 30.1 WK IUP EFW:54.7% (3lb 4oz) CL:not visualized d/t head position LEANDER:16.7 cm HR:139 bpm Posterior placenta, cephalic presentation Active movements Interpreted by: Lazaro Tucker MD Signed by: Lazaro Tucker MD 02/05/24 Final result CBC Collected: 01/14/2024 4:11 PM Status: F Source: [facility] TYPE CODE TESTS RESULT OUT OF RANGE REFERENCE UNITS LAB WBC(LOINC) WBC Count 11.0 3.5-11.3 k/uL LAB RBC(LOINC) RBC Count 3.47 Low 3.95-5.11 m/uL LAB HGB(LOINC) Hemoglobin 11.3 Low 11.9-15.1 g/dL LAB HCT(LOINC) Hematocrit 32.7 Low 36.3-47.1 % LAB MCV(LOINC) MCV 94.2 82.6-102.9 fL LAB MCH(INC) MCH 32.6 25.2-33.5 pg LAB MCHC(LOINC) MCHC 34.6 28.4-34.8 g/dL LAB RDW(LOINC) RDW 14.6 High 11.8-14.4 % LAB PLT(LOINC) Platelet Count 291 138-453 k/uL LAB MPVX([facility]) MPV 10.9 8.1-13.5 fL LAB NRBCS([facility]) NRBC Automated 0.0 0.0 per 100 WBC Performed By: #### CBC #### [facility] [address] [place] [address] Forging Engineer: Israel Valiente MD GLUCOSE CK SCR 50G Collected: 01/14/2024 4:[address] atus: F Source: [facility] TYPE CODE TESTS RESULT OUT OF RANGE REFERENCE UNITS LAB TYPET(LOINC) Glu Administered via Glucola LAB GLUS(LOINC) Glucose,Ck Scr 50g 106 70-135 mg/dL Performed By: #### GLUSC ### # [facility] [address] [place] [address] Forging Engineer: Israel Valiente MD US OB 14 PLUS WEEKS SINGLE OR FIRST GESTATION Observed: 11/29/2023 2:07 PM Status: F Source: [facility] Table formatting from the or iginal result was not included. Bruna Bowie on 11/29/2023 10:29 AM EDT 20.4 WK IUP CL:4.3 cm HR:143 bpm Posterior placenta, Cephalic presentation Ovaries: Both ovaries not visualized Gender: Male Active movements All visualized anatomy WNL Interpreted by: Lazaro Tucker MD Signed by: Lazaro Tucker MD 11/29/23 Final result CBC Collected: 10/11/2023 9:48 AM Status: F Source: [facility] TYPE CODE TESTS RESULT OUT OF RANGE REFERENCE UNITS LAB WBC(LOINC) WBC Count 9.0 3.5-11.3 k/uL LAB RBC(LOINC) RBC Count 4.07 3.95-5.11 m/uL LAB HGB(LOINC) Hemoglobin 12.9 11.9-15.1 g/dL LAB HCT(LOINC) Hematocrit 36.3 36.3-47.1 % LAB MCV(LOINC) MCV 89.2 82.6-102.9 fL LAB MCH(LOINC) MCH 31.7 25.2-33.5 pg LAB MCHC(LOINC) MCHC 35.5 High 28.4-34.8 g/dL LAB RDW(LOINC) RDW 11.9 11.8-14.4 % LAB PLT(LOINC) Platelet Count 278 138-453 k/uL LAB MPVX(LOINC) MPV 10.3 8.1-13.5 fL LAB NRBCS(LOINC) NRBC Automated 0.0 0.0 per 100 WBC Performed By: #### CP, CBC # ### [facility] [address] [place] [address] Forging Engineer: Israel Valiente MD COMP METABOLIC PROF Collected: 10/11/19 9:48 AM Status: F Source: [facility] TYPE CODE TESTS RESULT OUT OF RANGE REFERENCE UNITS LAB NA(LOINC) NA (Sodium) 140 135-144 mmol/L LAB K(LOINC) K (Potassium) 3.6 Low 3.7-5.3 mmol/L LAB CL(LOINC) Chloride 107 98-107 mmol/L LAB HCO(LOINC) CO2 22 20-31 mmol/L LAB GAP(LOINC) Anion Gap 11 9-17 mmol/L LAB GLU(LOINC) Glucose 89 70-99 mg/dL LAB BUN(LOINC) BUN (Urea N) 6 6-20 mg/dL LAB CRE(LOINC) Creatinine 0.4 Low 0.5-0.9 mg/dL LAB EGFR(LOINC) eGFR >90 >60 mL/min/1. 73m2 Result Comment: These results are not intended [...] following therapy that affects renal tubular secretion. LAB BUNCRE(LOINC) BUN/CRE Ratio 15 9-20 LAB CA(LOINC) Calcium 9.2 8.6-10.4 mg/dL LAB TP(LOINC) Protein, Total 6.4 6.4-8.3 g/dL LAB ALB(LOINC) Albumin 3.8 3.5-5.2 g/dL LAB AG(LOINC) Albumin/Glob Ratio 1.5 1.0-2.5 LAB TBIL(LOINC) Bilirubin, Total 0.3 0.3-1.2 mg/dL LAB ALP(LOINC) Alkaline Phos 40 35-104 U/L LAB ALT(LOINC) ALT 22 5-33 U/L LAB AST(LOINC) AST 12 <32 U/L Performed By: #### CP, CBC # ### [facility] [address] [place] [address] Forging Engineer: Israel Valiente MD ALLERGIES No Allergies Records Found ENCOUNTERS ADMIT/DISCHARGE ACCOUNT NUMBER ADMITTING ENCOUNTER CLASS LOCATION SOURCE 05/01/2024/ 4 [id number] Emergency Building:[facility] Room: 10Bed: [address] [place] [address] 04/24/2024/ 4 [id number] Ambulatory Building:[facility] 04/19/2024/ 4 [id number] SID TRINIDAD Inpatient Encounter Building:TOB Room: 0211Bed: [address] [place] [address] 04/18/2024/ 4 [id number] Ambulatory Building:[facility] 04/15/2024/ 4 [id number] Ambulatory Building:[facility] 04/07/2024/ 4 [id number] Ambulatory Building:[facility] 04/02/2024/ 4 [id number] JESENIA KOROMA Ambulatory Building:TOB Room: 0206Bed: [address] [place] [address] 03/31/2024/ 4 [id number] Ambulatory Building:[facility] 03/24/2024/ 4 [id number] Ambulatory Building:[facility] 03/24/2024/ 4 [id number] Ambulatory Building:[facility] 03/21/2024/ 4 [id number] Crow Briones [facility]:[id number] 1 [facility] 03/17/2024/ 4 [id number] Ambulatory Building:[facility] 03/10/2024/ 4 [id number] Ambulatory Building:[facility] 03/10/2024/ 4 [id number] Ambulatory Building:[facility] 03/03/2024/ 4 [id number] Ambulatory Building:[facility] 02/29/2024/ 4 [id number] JOSEPH DODSON Ambulatory Building:TOB Room: 0200Bed: [address] [place] [address] 02/04/2024/ 4 [id number] Ambulatory Building:[facility] 01/15/2024 [id number] Ambulatory Building:[facility] 01/14/2024/ 4 [id number] Ambulatory Building:[facility] 01/14/2024/ 4 [id number] Ambulatory Building:[facility] 12/11/2023 [id number] Ambulatory Building:[facility] 11/29/2023/ 4 [id number] Ambulatory Building:[facility] 10/31/2023/ 4 [id number] Ambulatory Building:[facility] 10/15/2023/ 4 [id number] Ambulatory Building:[facility] 10/11/2023/ 4 [id number] Ambulatory Building:[facility] PAYERS ENCOUNTER GUARANTOR PAYER SUBSCRIBER SOURCE 05/01/2024 МАРИНА GANB: [address] [address]Spo: () [place]: [id number] fabiola Date:8186-27-34FX[address] [address]LD: МАРИНА GANB: [id number] [address] [address]Wrp: (HP) () [facility] 04/24/2024 МАРИНА GANB: [address] [address]Pdt: (HP) [place] Insurance[place]: [id number] fabiola Date:1043-70-01LH[address] [address]QC: МАРИНА GANB: [id number] [address] [address]Meg: (HP) (WP) [facility] 04/19/2024 МАРИНА A JESSICASERDOB: [address], [place] [address]Ppr: (HP) [place] Insurance[place]: [id number] fabiola Date:6851-66-75GP [address] [place] [address]QN: МАРИНА A JESSICASERDOB: [id number] [address], [place] [address]Yas: (HP) (WP) [facility] 04/18/2024 МАРИНА A JESSICASERDOB: [address], [place] [address]Ztj: (HP) Primary Insurance[place]: [id number] fabiola Date:5128-67-62BI [address] [place] [address]DD: МАРИНА A JESSICASERDOB: [id number] [address], [place] [address]Krk: (HP) (WP) [facility] 04/15/2024 МАРИНА A JESSICASERDOB: [address], [place] [address]Shq: (HP) [place] Insurance[place]: [id number] fabiola Date:7965-49-67YE [address] [place] [address]JL: МАРИНА A JESSICASERDOB: [id number] [address], [place] [address]Pcf: (HP) (WP) [facility] 04/07/2024 МАРИНА A MALIDOB: [address], [place] [address]Ith: (HP) [place] Insurance[place]: [id number] fabiola Date:9440-87-46GF [address] [address]CV: МАРИНА A JESSICASERDOB: [id number] [place] [address], [place] [address]Bzn: (HP) (WP) [facility] 04/02/2024 МАРИНА Matt SAMSONDOB: [address], [place] [address]Evr: (HP) Primary Insurance[place]: [id number] fabiola Date:7743-02-65JU [address] [address]MY: МАРИНА Matt SAMSONDOB: [id number] [place] [address], [place] [address]Qqa: (HP) (WP) [facility] 03/31/2024 МАРИНАJULIO CÉSAR SAMSONDOB: [address], [place] [address]Fso: (HP) Primary Insurance[place]: [id number] fabiola Date:7366-01-41YH [address] [address]ZV: МАРИНА A JESSICASERDOB: [id number] [place] [address], [place] [address]Xeu: (HP) (WP) [facility] 03/24/2024 МАРИНА SAMSONDOB: [address] [place] [address]Wgv: (HP) Primary Insurance[place]: [id number] fabiola Date:5680-29-21MY [address] [address]BY: МАРИНАJULIO CÉSAR SAMSONDOB: [id number] [address] [place] [address]Udy: (HP) (WP) [facility] 03/24/2024 МАРИНА GANB: [address] [place] [address]Dwa: (HP) Primary Insurance[place]: [id number] fabiola Date:4000-38-05KB [address] [address]AJ: МАРИНАJULIO CÉSAR SAMSONDOB: [id number] [address], [place] [address]Ayr: (HP) (WP) [facility] 03/21/2024 МАРИНА GANB: [facility] 179Tel: ~ ~(41 (HP) Primary Insurance:HUMANAPo licy Number: [id number] fabiola Date:2024-03-12 МАРИНА WILKINSON [facility] 03/17/2024 МАРИНА GANB: [address] [place] [address]Evh: (HP) Primary Insurance[place]: [id number] fabiola Date:4555-04-08IY [address] [place] [address]DR: МАРИНА A JESSICASERDOB: [id number] [facility] [address], [place] [address]Zld: (HP) [facility] 03/10/2024 МАРИНА A JESSICASERDOB: [facility] [address], [place] [address]Xjs: (HP) Primary Insurance[place]: [id number] fabiola Date:2350-83-85LI [address] [address]VK: МАРИНА A JESSICASERDOB: [id number] [address], [place] [address]Xhg: (HP) [facility] 03/10/2024 МАРИНА Matt JESSICASERDOB: [address], [place] [address]Cjn: (HP) Primary Insurance[place]: [id number] fabiola Date:3922-59-33NR [address] [address]AU: МАРИНА A JESSICASERDOB: [id number] [address], [place] [address]Zpp: () [facility] 03/03/2024 МАРИНА A JESSICASERDOB: [address], [place] [address]Nkd: (HP) Primary Insurance[place]: [id number] fabiola Date:6030-84-83PH [address] [address]UE: МАРИНА A JESSICASERDOB: [id number] [facility] [address], [place] [address]Qnf: (HP) [facility] 02/29/2024 МАРИНА A JESSICASERDOB: [address], [place] [address]Uac: (HP) Primary Insurance[place]: [id number] fabiola Date:3757-32-51ZM[address] [address]YV: МАРИНА A JESSICASERDOB: [id number] [address], [place] [address]Juy: (HP) [facility] 02/04/2024 МАРИНА A JESSICASERDOB: [address], [place] [address]Euo: (HP) Primary Insurance[place]: [id number] fabiola Date:5831-50-07VM [address] [place] [address]UE: МАРИНА A JESSICASERDOB: [id number] [address], [place] [address]Gnm: (HP) [facility] 01/15/2024 МАРИНА A JESSICASERDOB: [address], [place] [address]Gqk: (HP) Primary Insurance[place]: [id number] fabiola Date:4773-51-29ZX[address] [address]BP: МАРИНА A JESSICASERDOB: [id number] [place] [address], [place] [address]Sdz: (HP) [facility] 01/14/2024 МАРИНА A JESSICASERDOB: [address], [place] [address]Sey: (HP) Primary Insurance[place]: [id number] fabiola Date:0767-89-00UL [address] [place] [address]JV: МАРИНА LOPEZSERDOB: [id number] [address], [place] [address]Hae: (HP) [facility] 01/14/2024 МАРИНА LOPEZSERDOB: [address], [place] [address]Jcu: (HP) Primary Insurance[place]: [id number] fabiola Date:7467-93-43MT [address] [place] [address]SP: МАРИНА LOPEZSERDOB: [id number] [address], [place] [address]Iun: (HP) [facility] 11/29/2023 МАРИНА LOPEZSERDOB: [address], [place] [address]Rhe: (HP) Primary Insurance[place]: [id number] fabiola Date:7295-83-19PU [address] [place] [address]WH: МАРИНА LOPEZSERDOB: [id number] [address], [place] [address]Gkc: (HP) [facility] 10/31/2023 МАРИНА SAMSONDOB: [address], [place] [address]Mpv: (HP) Primary Insurance[place]: [id number] fabiola Date:7373-32-90CQ [address] [place] [address]OS: МАРИНА GANB: [id number] [address], [place] [address]Bii: (HP) [facility] 10/15/2023 МАРИНА SAMSONDOB: [address], [place] [address]Bhy: (HP) [place] Insurance[place]: [id number] fabiola Date:3918-61-50XK [address] [place] [address]UR: МАРИНАJULIO CÉSAR GANB: [id number] [address], [place] [address]Zxp: (HP) [facility] 10/11/2023 МАРИНА GANB: [address], [place] [address]Tzz: (HP) [place] Insurance[place]: [id number] fabiola Date:8393-90-33YZ [address] [place] [address]CO: МАРИНА Matt GANB: [id number] [address], [place] [address]Jnv: () [facility]
[2024-09-25 21:49] VITALS: BP 126/71; PULSE 100; TEMP 36.6; O2SAT 96; BMI 33.6
--- NOTE | 2024-09-25 23:36 | ED.URI1 ---
HPI - URI/Sore Throat General Chief Complaint: Upper Respiratory Infection Stated Complaint: cough Time Seen by Provider: 09/25/24 21:31 Source: patient Limitations: no limitations History of Present Illness HPI Narrative: This 29-year-old female, non-smoker presents for evaluation of cough and nasal congestion. She is being seen in conjunction with her 5-month-old who has similar symptoms. Her symptoms started yesterday. She denies any chest pain or shortness of breath. She has chronic ear pain which is unchanged. She denies any sore throat. She denies the possibility of . She denies any nausea vomiting or diarrhea. Related Data Home Medications ?Medication ?Instructions ?Recorded ?Confirmed sertraline 100 mg tablet 100 mg PO DAILY 08/25/23 09/25/24 Previous Rx's ?Medication ?Instructions ?Recorded ondansetron 4 mg disintegrating 4 mg PO Q6H PRN nausea and 08/07/24 tablet vomiting #20 tabs Allergies Allergy/AdvReac Type Severity Reaction Status Date / Time No Known Drug Allergies Allergy Verified 09/25/24 21:49 Review of Systems ROS Status of ROS 10 or more systems reviewed and unremarkable except as noted in history and below PFSH PFS Social History Little interest or pleasure in doing things: not at all Feeling down, depressed, or hopeless: not at all Exam Narrative Exam Narrative: Vital signs and Nursing Notes reviewed: Symptoms afebrile with a normal pulse, normal blood pressure, she is not hypoxic with pulse ox of 96% on room air General: Awake, alert, oriented, no acute distress, lying comfortably on the stretcher HEENT: Normocephalic atraumatic, mucous membranes are moist and pink, eyes are clear, normal conjunctiva, vision is grossly intact, posterior pharynx is normal in appearance. Tympanic membranes are normal bilaterally Neck: Supple, no meningeal signs, no anterior or posterior cervical lymphadenopathy Chest: Lungs are clear to auscultation with good air entry, there is no wheezing rhonchi or rales appreciated no accessory muscle use, patient is speaking in complete sentences-no chest wall tenderness to palpation CVS: Regular rate and rhythm S1-S2, no murmurs rubs or gallops, pulses are brisk and equal bilaterally Extremities: Moving all extremities, no lower extremity tenderness or swelling noted, negative Homans' sign, pulses are brisk and equal bilaterally Skin: Normal in appearance without rash,pallor, petechiae or purpura Neuro: No focal deficits Constitutional Vital Signs, click to edit/add: Last Vital Signs Temp 98 F 09/25/24 21:49 Pulse 100 H 09/25/24 21:49 Resp 18 09/25/24 21:49 BP 126/71 09/25/24 21:49 Pulse Ox 96 09/25/24 21:49 O2 Del Method Room Air 09/25/24 21:49 Course Vital Signs Vital signs: Vital Signs Temperature 98 F 09/25/24 21:49 Pulse Rate 100 H 09/25/24 21:49 Respiratory Rate 18 09/25/24 21:49 Blood Pressure 126/71 09/25/24 21:49 Pulse Oximetry 96 09/25/24 21:49 Oxygen Delivery Method Room Air 09/25/24 21:49 Temperature 98 F 09/25/24 21:49 Pulse Rate 100 H 09/25/24 21:49 Respiratory Rate 18 09/25/24 21:49 Blood Pressure 126/71 09/25/24 21:49 Pulse Oximetry 96 09/25/24 21:49 Oxygen Delivery Method Room Air 09/25/24 21:49 MDM - URI/Sore Throat MDM Narrative Medical decision making narrative: This 29-year-old female, non-smoker presents for evaluation of nasal congestion and cough that started yesterday. She has been seen in conjunction with her 5month old baby who has similar symptoms. Symptoms started yesterday. The patient's physical exam is benign. Lungs are clear, oropharynx is benign, tympanic membrane's are normal. I explained to her that she likely has an upper respiratory tract infection similar to her child. She was encouraged to drink plenty of fluids use Tylenol Motrin and [id number] cough and congestion medications as needed. Discharge Plan Discharge Chief Complaint: Upper Respiratory Infection Clinical Impression: Upper respiratory infection Patient Disposition: Home, Self-Care Time of Disposition Decision: 23:51 Condition: Good Prescriptions / Home Meds: No Action ondansetron 4 mg tablet,disintegrating 4 mg PO Q6H PRN (Reason: nausea and vomiting) Qty: 20 0RF sertraline 100 mg tablet 100 mg PO DAILY Print Language: Telugu Instructions: Upper Respiratory Infection (ED) Referrals: Physician,Non-Staff, MD [Primary Care Provider] - 1 week
== END 2024-09-26 00:30 | disposition home or self-care (01) ==
PROVIDERS: Emergency Provider Emergency Medicine
DX: J06.9 Acute upper respiratory infection, unspecified (principal)
CPT/HCPCS: 99281

== ENCOUNTER 2025-03-17 16:41 | Emergency (ER) | payer MEDICAID, SELFPAY ==
--- OUTSIDE RECORDS SUMMARY | 2024-11-18 08:45 | XMS_ITS | Continuity of Care Document ---
Author Organization [facility] Address [address] [place] [address] Phone Care Team Providers Care Entry Processor Name Role Phone Balbir RED, Yixue Unavailable [...] 1st Film Nutrit Couns For Control Of [place] Dis Nov Limited Oral Eval Extract; Erupted Th/exposted Rt 025 Advance Directives Directive Yes / No Effective Date File Name No Information Encounters Encounter Description Practice Location Reason(s) For Visit Diagnoses Date Provider Providers Copied on Encounter [facility], [address] [place] [address], [id number], [place] tel:[phone] [facility] Dental Clinic er (chief complaint) Encounter for screening for dental disorders Balbir RED Yixue. [address] [place] [address], [address], [place]. tel:[phone] Family History Family Member Type Diagnosis Age At Onset No Information Payers Payer name Insurance type Covered alliance party ID Authoriza tion(s) D Hum[employer] Medicaid [employer] [facility] 0223 [id number] D Medicaid Wrap - [facility] [id number] Social History Type Description Quantity Date Captured [...]
[2025-03-17 16:45] VITALS: BP 120/74; PULSE 108; TEMP 37.1; O2SAT 98; BMI 49.9
[2025-03-17 17:22] LABS: HCG Qualitative Urine* POSITIVE (NEGATIVE)
--- NOTE | 2025-03-17 17:30 | ED_ITS ---
HPI HPI - General Adult General Chief complaint: Abdominal Pain Stated complaint: CRAMPING Time Seen by Provider: 03/17/25 16:42 Source: patient Mode of arrival: walk-in History of Present Illness HPI narrative: Patient is a 29-year-old female that presents with complaints of progressively worsening pelvic cramping. She notes she recently took a few test that were positive that was prompted by her being nauseous and feeling sick. She just had her son in April 2024 by with following complications. She bled for 4 months after the and has not had a normal period after that. She states she will have spotting but nothing that is consistent. She has been on a control pill. She is not certain how far along she could be. She has had about 7 or 8 miscarriages, may be a few that reach second trimester but none that were viable. She denies any vaginal bleeding but is having some clear discharge. She denies any fever, night sweats, or chills. Related Data Home Medications ?Medication ?Instructions ?Recorded ?Confirmed No Known Home Medications 03/17/2503/07 Allergies Allergy/AdvReac Type Severity Reaction Status Date / Time No Known Drug Allergies Allergy Verified 09/25/24 21:49 Review of Systems ROS Status of ROS 10 or more systems reviewed and unremark able except as noted in history and below [facility] Social History Little interest or pleasure in doing things: not at all Feeling down, depressed, or hopeless: not at all Exam Narrative Exam Narrative: General: No distress, age-appropriate Skin: Warm, dry, no pallor. No rash. Head: Normocephalic, atraumatic. Neck: Supple, non-tender. Eye: Pupils are equal, round and EOMI. No scleral icterus. Ears, Nose, Mouth, and Throat: No nasal mucosal hypertrophy. Oral mucosa is moist, no posterior oropharynx erythema, uvula is mid-line Cardiovascular: Regular Rate and Rhythm without murmur, gallop or rub. Respiratory: No accessory muscle use or respiratory distress. Musculoskeletal: Full ROM of all extremities, no calf or popliteal tenderness GI: Abdomen is soft, non-distended, tender to palpation right lower quadrant/pelvis. No masses appreciated. No rebound, guarding, or rigidity noted. Neurological: A&O x4. No cranial nerve dysfunction observed. No truncal ataxia. Moves all extremities. Sensation intact. Psychiatric: Cooperative and interactive. Normal mood and affect. Constitutional Vital Signs, click to edit/add: Last Vital Signs Temp 98.7 F 03/17/25 16:45 Pulse 108 H 03/17/25 16:45 Resp 18 03/17/25 16:45 BP 120/74 03/17/25 16:45 Pulse Ox 98 03/17/25 16:45 O2 Del Method Room Air 03/17/25 16:45 Documenting provider has reviewed patient's vital signs: yes Course Vital Signs Vital signs: Vital Signs Temperature 98.7 F 03/17/25 16:45 Pulse Rate 108 H 03/17/25 16:45 Respiratory Rate 18 03/17/25 16:45 Blood Pressure 120/74 03/17/25 16:45 Pulse Oximetry 98 03/17/25 16:45 Oxygen Delivery Method Room Air 03/17/25 16:45 Temperature 98.7 F 03/17/25 16:45 Pulse Rate 108 H 03/17/25 16:45 Respiratory Rate 18 03/17/25 16:45 Blood Pressure 120/74 03/17/25 16:45 Pulse Oximetry 98 03/17/25 16:45 Oxygen Delivery Method Room Air 03/17/25 16:45 Medical Decision Making [facility] Narrative Medical decision making narrative: This is a 29-year-old female that presented to the ED with pelvic cramping that is progressively worsening after taking home test that were positive. LMP unknown as she has not had normal bleeding since she bled for 4 months after her in April 2024. She has been on a control pill. She was prompted to take test as she was nauseous and feeling sick. She denies any vaginal bleeding but is having a clear discharge. Patient mildly tachy, she is well-known to this ER and this appears to be at her baseline in the low 100s, BP is hemodynamically stable. Afebrile at 98.7 ?F. hCG urine ordered, this was positive. Serum quant ordered and was 44,488 consistent with about a 4 to 5-week . Transvaginal ultrasound ordered and reviewed. Radiological read confirms there is a single intrauterine , heart rate 124 bpm, consistent with a 6-week, 4-day . I discussed results with patient and given she is having no bleeding or cramping and clear discharge can be normal for trimester symptoms. She does see Teresa Dyson household refrigeration mechanic at [facility]. Patient will call her tomorrow to arrange for follow-up. Return precautions discussed for any new or worsening symptoms. Patient is stable for discharge with close OB follow-up. Differential Diagnosis Differential Diagnosis: Early IU , ectopic , retained products of conception Lab Data Lab results reviewed: Yes I reviewed the patient's lab results Labs: Lab Results 03/17/25 03/17/25 Range/Units 17:14 17:35 HCG, Quant 00989 mIU/mL Urine HCG, Qual Positive A (NEGATIVE) Imaging Data Transvaginal ultrasound: Attestation: I have reviewed the pertinent imaging results. Radiologist's impression: ITS Impressions Transvaginal US 03/17/25 18:09 IMPRESSION: Single live intrauterine . heart rate 124 beats per minutes. Impression dictated by: Aguilar Simms M.D. 03/17/2025 7:30 PM Dictation Location[facility] Electronically authenticated by: [id number] Y Date: 03/17/2025 19:30 Discharge Plan Discharge Chief Complaint: Abdominal Pain Clinical Impression: Patient Disposition: Home, Self-Care Time of Disposition Decision: 19:03 Condition: Good Mode of Transportation: Private Vehicle Prescriptions / Home Meds: No Action No Known Home Medications Print Language: Burundian Instructions: (ED) Additional Instructions: Your transvaginal ultrasound measured an intrauterine at 6 weeks and 4 days, heart rate at 124 bpm. Your hCG measured 44,488. Call your OB tomorrow for follow-up. Referrals: Physician,Non-Staff, [Primary Care Provider] - 1 week Discharge Date/Time: 03/17/25 19:19
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
--- OUTSIDE RECORDS SUMMARY | 2025-03-17 17:38 | XMS_ITS | Clinical Summary ---
Author Organization [facility] Address [address] [place] [address] Care Team Providers Care Steel Cutter Name Role Phone Unavailable Primary Care Provider Unavailabl e Social History Tobacco UseTypesPacks/DayYears UsedDateSmoking Tobacco: Never Assessed CommentsUnknownSex and Gender InformationValueDate RecordedSex Assigned at [place]2503/01/2023 8:51 AM EDTLegal QcjWduyig70/15/2023 11:47 PM EDTGender HnyvotwaIzkodu86/26/2023 8:51 AM EDTSexual OrientationNot on file Plan of Treatment Not on file Insurance
--- OUTSIDE RECORDS SUMMARY | 2025-03-17 17:38 | XMS_ITS | CCD ---
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 MDErythrocyte distribution width (RBC) [Ratio]14.1 % Hyrfrt96.8-14.4[facility] Medical CenterComment on above:Performed By: #### CDP #### [address] [place], [place] 0848283 Inspector Optical Instrument: Israel Valiente MDHematocrit (Bld) [Volume fraction]33.2 %Low 36.3-47.1MercSaint Francis Hospital & Medical CenterComment on above:Performed By: #### CDP #### [address] [place] [address] Inspector Optical Instrument: Israel Valiente MDHemoglobin (Bld) [Mass/Vol]11.3 g/dLLow11.9-15.1 [facility] Medical CenterComment on above:Performed By: #### CDP #### [address] [place], [place] 7535983 Inspector Optical Instrument: CLAU GoreCH (RBC) [Entitic mass]32.2 scYqfwkv22.2-33.5 [facility] Medical CenterComment on above:Performed By: #### CDP #### [address] [place], [place] 5988083 Inspector Optical Instrument: FITZ GoreC (RBC) [Mass/Vol]34.0 g/xXXqxruk75.4-34.8[facility] Medical CenterComment on above:Performed By: #### CDP #### [address] [place], [place] 4443483 Inspector Optical Instrument: CLAU GoreCV (RBC) [Entitic vol]94.6 zTDrerqk86.6-102.9 [facility] Medical CenterComment on above:Performed By: #### CDP #### [address] [place], [facility]83 Inspector Optical Instrument: Israel Valiente MDNRBC Automated0.0 per 100 WBCNormal0.0[facility] Medical CenterComment on above:Performed By: #### CDP #### [address] [place] [address] Inspector Optical Instrument: LM Gorelatelet mean volume (Bld) [Entitic vol]10.4 fL Normal8.1-13.5[facility] Valley Medical CenterComment on above:Performed By: #### CDP #### [facility] [address] [place], [place] 8542483 Inspector Optical Instrument: Yared Gore ([facility]) [#/Vol]343 10*3/vLGqtcrb325-[address] [facility] HospitalComment on above:Performed By: #### CDP #### [address] [place], [place] 6452783 Inspector Optical Instrument: AAN Gore ([facility]) [#/Vol]3.51 10*6/uLLow3.95-5.11[facility] Medical CenterComment on above:Performed By: #### CDP #### [address] [place], [place] 8975883 Inspector Optical Instrument: CASEY Gore ([facility]) [#/Vol]15.1 10*3/uLHigh3.5-11.3MAdena Regional Medical Center HospitalComment on above:Performed By: #### CDP #### [address] [place], [place] 1934683 Inspector Optical Instrument: Israel Valiente MDType + Screenon [id number] + ScreenSample Expiration 04/22/2024,2359 Arm Band Number [id number] ABO/Rh(D) O POSITIVE Antibody Screen NEGATIVENormalUpper Valley Medical CenterComment on above:Performed By: #### TYS #### [address] [place], [place] 8955383 Inspector Optical Instrument: Israel Valiente MDUS OB 1 OR MORE FETUS LIMITEDon [id number] OB 1 OR MORE FETUS LIMITEDEXAMINATION: 3rd TRIMESTER OBSTETRIC ULTRASOUND 04/18/2024 TECHNIQUE: Transabdominal [...] Signed by: Kiet Hernandez MD 04/18/24 Final resultNormalUniversity Hospitals [facility] BIOPHYSICAL PROFILE WO NON STRESS TESTINGon [id number] BIOPHYSICAL PROFILE WO NON STRESS TESTING Table formatting from the original result was not included. Janett Huerta on 04/15/2024 9:11 AM EST BPP- 8/8 HR: 146 bpm LEANDER: 16.5 cm Posterior placenta. Cephalic presentation. Active movements. Interpreted by: Lazaro Tucker MD Signed by: Lazaro Tucker MD 04/16/24 Final resultNoKettering Health Main CampusUS BIOPHYSICAL PROFILE WO NON STRESS TESTINGon [id number] BIOPHYSICAL PROFILE WO NON STRESS TESTINGTable formatting from the original result was not included. Janett Huerta on 04/07/2024 9:46 AM EST BPP- 8/8 HR: 151 bpm LEANDER: 17.4 cm Posterior placenta. Cephalic presentation. Active movements. Interpreted by: Lazaro Tucker MD Signed by: Lazaro Tucker MD 04/08/24 Final resultNoKettering Health Main CampusUS OB 1 OR MORE FETUS LIMITED on [id number] OB 1 OR MORE FETUS LIMITEDEXAMINATION: TRIMESTER OBSTETRIC ULTRASOUND 04/02/2024 TECHNIQUE: Transabdominal obstetric [...] Signed by: Ej Babin MD 04/02/24 Final resultNoGlenbeigh HospitalUrinalysis, Routineon 04-02-2024 Bilirubin, SemiQt,UrNegativeNormalNEGUpper Valley Medical CenterComment on above: Performed By: #### UA, UMICAO #### [facility] [address] [place] [address] Dr. [place], [place] 0781183 Inspector Optical Instrument: Amber Gore, UrineNegativeSouthview Medical Center Comment on above:Performed By: #### UA, UMICAO #### [address] [place], [place] 7160583 Inspector Optical Instrument: Cem Gorety (ClearNormalCLEARUpper Valley Medical Center Comment on above:Performed By: #### UA, UMICAO #### [address] [place] [address] Inspector Optical Instrument: Gavin Gore (YellowNoalYHolzer Medical Center – Jackson Comment on above:Performed By: #### UA, UMICAO #### [facility] [address] [place] [address] [place] [address] Inspector Optical Instrument: Israel Valiente MDGlucose Ql (U)NegativeNormalNEGUpper Valley Medical CenterComment on above:Performed By: #### UA, UMICAO #### [facility] [address] [place] [address] [place] [address] Inspector Optical Instrument: Israel Valiente MDKetones Ql ()NegativeNormalNEGUpper Valley Medical CenterComment on above:Performed By: #### UA, UMICAO #### [facility] [address] [place] [address] Dr[place] 4127644 Inspector Optical Instrument: Israel Valiente MDLeukocyte esterase Test strip Ql (U)TRACEAbnormal NEGUpper Valley Medical CenterComment on above:Performed By: #### KENYA, UMICAO #### [address] [place], [place] 3807383 Inspector Optical Instrument: Israel Valiente MDNitrite,UrNegativeNormalNEGUpper Valley Medical Center Comment on above:Performed By: #### KENYA, UMICAO #### [address] [place] [address] Inspector Optical Instrument: LM Gore,Ur6.5Imztmg4.0-9.0[facility] Medical CenterComment on above:Performed By: #### KENYA, UMICAO #### [address] [place], [facility]83 Inspector Optical Instrument: LM Gorerotein Ql (U)NegativeNormalNEGUpper Valley Medical CenterComment on above:Performed By: #### KENYA UMICAO #### [address] [place], [place] [address] Inspector Optical Instrument: DIANA Gorepec. [place],Ur1.765Dbmoas8.010-1.020Upper Valley Medical CenterComment on above:Performed By: #### KENYA UMICAO #### [address] [place], [facility]83 Inspector Optical Instrument: Israel Valiente MDUrobilinogen,UrNormalNormal0.0-1.0[facility] Medical CenterComment on above:Performed By: #### KENYA, UMICAO #### [address] [place], [place] 5979183 Inspector Optical Instrument: Israel Valiente MDUrinalysis,Microon 51-56-5263Zxkfiqdcob cells LM Ql (Urine sed)20 TO 87Frscmj9-58KexswUpper Valley Medical CenterComment on above:Performed By: #### UA, UMICAO #### [facility] [address] [place] [address] Inspector Optical Instrument: Liz Gore RBC's0 TO 9Egsgzu3-5LrmbiWyandot Memorial Hospital Comment on above:Performed By: #### UA, UMICAO #### [facility] [address] [place] [address] Inspector Optical Instrument: Liz Gore WBC's0 TO 5Tadefj4-9XectcUpper Valley Medical Center Comment on above:Performed By: #### UA, UMICAO #### [facility] [address] [place] [address] Inspector Optical Instrument: DAVIN Gore BIOPHYSICAL PROFILE WO NON STRESS TESTING on 16-79-5563IW BIOPHYSICAL PROFILE WO NON STRESS TESTINGTable formatting from the original result was not included. Janett Huerta on 03/31/2024 12:04 PM EST BPP- 8/8 HR: 145 bpm LEANDER: 15.7 cm Posterior placenta. Cephalic presentation. Active movements. Interpreted by: Lazaro Tucker MD Signed by: Lazaro Tucker MD 04/01/24 Final resultNoKettering Health Main CampusRule Out Grp.B Strepon 49-02-2571Szfq Out Grp.B StrepSpecimen Description .VAGINA Special Requests Site: Genital Culture NEGATIVE FOR GROUP B STREPTOCOCCI Report Status FINAL 03/27/2024NoGlenbeigh HospitalComment on above: Performed By: #### CDP #### [facility] [address] [place] [address] Inspector Optical Instrument: DAVIN Gore BIOPHYSICAL PROFILE WO NON STRESS TESTING on 29-09-3220MH BIOPHYSICAL PROFILE WO NON STRESS TESTINGTable formatting from the original result was not included. Janett Huerta on 03/24/2024 9:38 AM EST BPP- 8/8 36.5 WK IUP EFW:44.8% (6lb 7oz) CL:not visualized d/t head position LEANDER:16.8cm HR:153 bpm Posterior placenta, cephalic presentation Active movements Interpreted by: Lazaro Tucker MD Signed by: Lazaro Tucker MD 03/24/24 Final resultNormalMercy Robert F. Kennedy Medical CenterUS OB FOLLOW UP TRANSABDOMINAL APPROACHon [id number] OB FOLLOW UP TRANSABDOMINAL APPROACHTable formatting from the original result was not included. Huerta Janett on 03/24/2024 9:38 AM EST BPP- 8 36.5 WK IUP EFW:44.8% (6lb 7oz) CL:not visualized d/t head position LEANDER:16.8cm HR:153 bpm Posterior placenta, cephalic presentation Active movements Interpreted by: Lazaro Tucker MD Signed by: Lazaro Tucker MD 03/24/24 Final resultNormalWright-Patterson Medical CenterHeart and Vascular Office/Clinic Noteon 91-09-7389Wpqev and Vascular Office/Clinic NoteHeart and Vascular Office/Clinic Note Chief Complaint est [...] Use:., 03/21/2024 Family History Stroke: Mother and Father.Fire[facility] Regional Medical CenterComment on above: Result Comment: Electronically Signed By: Anali MODI, Crow [place]\.ulices\Date and Time Signed: 03/21/24 14:51 ESTUS BIOPHYSICAL PROFILE WO NON STRESS TESTINGon [id number] BIOPHYSICAL PROFILE WO NON STRESS TESTINGTable formatting from the original result was not included. Janett Huerta on 03/17/2024 8:45 AM EST BPP- 8/8 HR: 143 bpm LEANDER: 16.8 cm Posterior placenta. Cephalic presentation. Active movements. Interpreted by: Lazaro Tucker MD Signed by: Lazaro Tucker MD 03/17/24 Final resultNoKettering Health Main CampusUS BIOPHYSICAL PROFILE WO NON STRESS TESTINGon 31-07-1973HM BIOPHYSICAL PROFILE WO NON STRESS TESTINGTable formatting from the original result was not included. Janett Huerta on 03/10/2024 11:23 AM EST BPP- 8/8 HR: 138 bpm LEANDER: 16.7 cm Posterior placenta. Cephalic presentation. Active movements. Interpreted by: Lazaro Tucker MD Signed by: Lazaro Tucker MD 03/10/24 Final resultNoKettering Health Main CampusUS BIOPHYSICAL PROFILE WO NON STRESS TESTINGon [id number] BIOPHYSICAL PROFILE WO NON STRESS TESTINGTable formatting from the original result was not included. Janett Huerta on 03/03/2024 11:00 AM EDT BPP- 8/8 HR: 144 bpm LEANDER: 17.4 cm Posterior placenta. Cephalic presentation. Active movements. Interpreted by: Lazaro Tucker MD Signed by: Lazaro Tucker MD 03/03/24 Final resultMercy HealthUrinalysis, Routineon 57-42-8132Cqbpndsib, SemiQt,UrNegativeNormalNEGUpper Valley Medical CenterComment on above:Performed By: #### UA #### [facility] [address] [place] [address] Inspector Optical Instrument: Amber Gore UrineNegOhioHealth Comment on above:Performed By: #### UA #### [facility] [address] [place] [address] Inspector Optical Instrument: Amira Gore ()ClearNoAultman Orrville Hospital Comment on above:Performed By: #### UA #### [facility] [address] [place] [address] Dr. [place], [place] [id number] Inspector Optical Instrument: MAIA Goreolor (U)YellowNormalYELMerMilford Hospital Comment on above:Performed By: #### UA #### [facility] [address] [place] [address] [place] [address] Inspector Optical Instrument: Israel Valiente MDGlucose Ql (U)NegativeNormalNEGUpper Valley Medical CenterComment on above:Performed By: #### UA #### [facility] [address] [place] [address] Dr. [place], [facility]83 Inspector Optical Instrument: Israel Valiente MDKetones Ql (U)NegativeNormalNEGUpper Valley Medical CenterComment on above:Performed By: #### UA #### [facility] [address] [place] [address] Dr. [place], [facility]83 Inspector Optical Instrument: Israel Valiente MDLeukocyte esterase Test strip Ql (U)NegativeNormal NEGUpper Valley Medical CenterComment on above:Performed By: #### UA #### [facility] [address] [place] [address] Dr. [place], [facility]83 Inspector Optical Instrument: Israel Valiente MDNitrite,UrNegativeSouthview Medical Center Comment on above:Performed By: #### UA #### [facility] [address] [place] [address] Dr. [place], [facility]83 Inspector Optical Instrument: LM Gore,Ur7.7Faoixj2.0-9.0MerMilford HospitalComment on above:Performed By: #### UA #### [facility] [address] [place] [address] [place] [address] Inspector Optical Instrument: LM Gorerotein Ql (U)NegativeNormalNEGUpper Valley Medical CenterComment on above:Performed By: #### UA #### [address] [place] [address] Inspector Optical Instrument: DIANA Gorepec. [place],Ur1.566Mjjvoc3.010-1.020Upper Valley Medical CenterComment on above:Performed By: #### UA #### [address] [place], [place] 9000483 Inspector Optical Instrument: Israel Valiente MDUrobilinogen,UrNormalNormal0.0-1.0[facility] Medical CenterComment on above:Performed By: #### UA #### [address] [place] [address] Inspector Optical Instrument: DAVIN Gore OB FOLLOW UP TRANSABDOMINAL APPROACHon 01-36-1219FA OB FOLLOW UP TRANSABDOMINAL APPROACHTable formatting from the original result was not included. Janett Huerta on 02/04/2024 5:01 PM EDT 30.1 WK IUP EFW:54.7% (3lb 4oz) CL:not visualized d/t head position LEANDER:16.7 cm HR:139 bpm Posterior placenta, cephalic presentation Active movements Interpreted by: Lazaro Tucker MD Signed by: Lazaro Tucker MD 02/05/24 Final resultNormalWright-Patterson Medical CenterCBCon 10-79-8487Dknvkoxmpce distribution width (RBC) [Ratio]14.6 %High11.8-14.4[facility] Medical CenterComment on above:Performed By: #### CBC #### [address] [place], [place] 8602283 Inspector Optical Instrument: Israel Valiente MDHematocrit (Bld) [Volume fraction]32.7 %Low 36.3-47.1MWyandot Memorial HospitalComment on above:Performed By: #### CBC #### [address] [place], [place] 3784783 Inspector Optical Instrument: Israel Valiente MDHemoglobin (Bld) [Mass/Vol]11.3 g/dLLow11.9-15.1 [facility] Medical CenterComment on above:Performed By: #### CBC #### [address] [place], [place] 1993283 Inspector Optical Instrument: CLAU GoreCH (RBC) [Entitic mass]32.6 [address]xRkaisb85.2-33.[address] [facility] HospitalComment on above:Performed By: #### CBC #### [address] [place], [place] 0921683 Inspector Optical Instrument: FITZ GoreC (RBC) [Mass/Vol]34.6 g/qKZdsear05.4-34.8[facility] HospitalComment on above:Performed By: #### CBC #### [address] [place], [place] 5528883 Inspector Optical Instrument: CLAU GoreCV (RBC) [Entitic vol]94.[address]jxy05.6-102.[address] [facility] HospitalComment on above:Performed By: #### CBC #### [address] [place], [place] 6399283 Inspector Optical Instrument: ELIZABETH GoreBC Automated0.0 per 100 WBCNormal0.0Upper [facility] Medical CenterComment on above:Performed By: #### CBC #### [address] [place], [place] 9724583 Inspector Optical Instrument: Ariadne Goretelet mean volume (Bld) [Entitic vol]10.9 fL Normal8.1-13.5Upper Valley Medical CenterComment on above:Performed By: #### CBC #### [address] [place], [place] 0140583 Inspector Optical Instrument: LM Gorelatelets (Bld) [#/Vol]291 10*3/yXUsqmvk315-730 [facility] Medical CenterComment on above:Performed By: #### CBC #### [address] [place], [place] 6173283 Inspector Optical Instrument: ANA Gore (Bld) [#/Vol]3.47 10*6/uLLow3.95-5.11[facility] Medical CenterComment on above:Performed By: #### CBC #### [address] [place], [facility]83 Inspector Optical Instrument: CASEY Gore (Bld) [#/Vol]11.0 10*3/uLNormal3.5-11.3MWyandot Memorial HospitalComment on above:Performed By: #### CBC #### [address] [place] 4127683 Inspector Optical Instrument: Israel Valiente MDGlucose North Scr 50gon 25-13-9420Hcuvnzd [Mass/Vol] 106 mg/vNQmudqd80-826JpfsxUpper Valley Medical CenterComment on above:Performed By: #### GLUSC #### [address] [place] [address] Inspector Optical Instrument: Israel Valiente MDGlu Administered viaGlucolaNormalUpper Valley Medical CenterComment on above:Performed By: #### GLUSC #### [address] [place] 4127683 Inspector Optical Instrument: Israel Valiente MDGlucose tolerance, 1 houron 97-14-0723UCT ADMN GlucolaBON WYANDOT MEMORIAL HOSPITALGlucose 1 Hr post 50 g glucose PO [Mass/Vol]106 mg/dL70 - 135 mg/dLBON WYANDOT MEMORIAL HOSPITALBON WYANDOT MEMORIAL HOSPITALCBCon 36-25-4811Ieotblqnuqr distribution width (RBC) [Ratio]11.9 %11.8 - 14.4 %[facility] MEDICAL CENTERHematocrit (Bld) [Volume fraction]36.3 %36.3 - 47.1 %[facility] MEDICAL CENTERHemoglobin (Bld) [Mass/Vol]12.9 g/dL11.9 - 15.1 g/dLBON WYANDOT MEMORIAL HOSPITALInterpretation and review of laboratory resultsAbnormalBON MCCULLOUGH-HYDE MEMORIAL HOSPITALH (RBC) [Entitic mass]31.7 pg25.2 - 33.5 pgBON MCCULLOUGH-HYDE MEMORIAL HOSPITALHC (RBC) [Mass/Vol]35.5 g/yUNtol93.4 - 34.8 g/dLBON MCCULLOUGH-HYDE MEMORIAL HOSPITALV (RBC) [Entitic vol]89.2 fL82.6 - 102.9 fLMOUNTAIN VIEW REGIONAL MEDICAL CENTER Nucleated RBC/100 WBC (Bld) [Ratio]0.0 %0.0 per 100 WBCMOUNTAIN VIEW REGIONAL MEDICAL CENTER Platelet mean volume (Bld) [Entitic vol]10.3 fL8.1 - 13.5 fLMOUNTAIN VIEW REGIONAL MEDICAL CENTERPlatelets (Bld) [#/Vol]278 10*3/uLBON WYANDOT MEMORIAL HOSPITALRBC (Bld) [#/Vol]4.07 10*6/uL3.95 - 5.11 m/uLBON WYANDOT MEMORIAL HOSPITALWBC other (Bld) [#/Vol]9.0BON [facility] MEDICAL CENTERComprehensive Metabolic Panelon 68-05-5258Tlwcbze [Mass/Vol]3.8 g/dL3.5 - 5.2 g/dLBON WYANDOT MEMORIAL HOSPITALAlbumin/Globulin [Mass ratio]1.5 {ratio}1.0 - 2.5BON WYANDOT MEMORIAL HOSPITALALP [Catalytic activity/Vol]40 U/L35 - 104 U/LBON WYANDOT MEMORIAL HOSPITALALT [Catalytic activity/Vol]22 U/L5 - 33 U/LBON WYANDOT MEMORIAL HOSPITALAnion gap [Moles/Vol]11 mmol/L9 - 17 mmol/LBON [facility] HEALTHAST [Catalytic activity/Vol]12 U/LNINF - 32 U/LBON WYANDOT MEMORIAL HOSPITALBilirubin [Mass/Vol]0.3 mg/dL0.3 - 1.2 mg/dLBON WYANDOT MEMORIAL HOSPITALCalcium [Mass/Vol]9.2 mg/dL8.6 - 10.4 mg/dLBON SECOURS MERCY HEALTHChloride [Moles/Vol]107 mmol/L98 - 107 mmol/L BON [facility]ITALY HEALTHCO2 [Moles/Vol]22 mmol/L20 - 31 mmol/LBON [facility]CCASC[facility]LEY HOSPITALY HEALTHCreatinine [Mass/Vol]0.4 mg/dLLow0.5 - 0.9 mg/dLBON SECBATON [facility] HEALTH Est, Glom Filt Rate- PINFBON SECBATON ROUGE GENERAL MEDICAL CENTER HEALTHComment on above: These results are not intended [...] therapy that affects renal tubular secretion. Glucose [Mass/Vol]89 mg/dL70 - 99 mg/dLBON [facility] HEALTHInterpretation and review of laboratory resultsAbnormalBON SECCASCADE VALLEY HOSPITALY HEALTHPotassium [Moles/Vol]3.6 mmol/LLow3.7 - 5.3 mmol/LBON SECBATON ROUGE GENERAL [facility]ENTER HEALTHProtein [Mass/Vol]6.4 g/dL6.4 - 8.3 g/dLBON SECBATON ROU[facility] HEALTHSodium [Moles/Vol]140 mmol/L135 - 144 mmol/LBON SECBATON ROU[facility]ENTER HEALTHUrea nitrogen [Mass/Vol]6 mg/dL6 - 20 mg/dLBON SECCASCADE VALLEY HOSPITALY HEALTHUrea nitrogen/Creatinine [Mass ratio]15 mg/mg9 - 20BON SECOURS [facility] SYSTEMY HEALTHBON SECBATON ROUGE [facility]ENTER HEALTHCT CSPINE WO CONon 08-64-1159DC CSPINE WO CONCT CERVICAL SPINE WITHOUT CONTRAST HISTORY: UNSPECIFIED INJURY [...] Electronically authenticated by: JOZEF SANTAMARIA Date: 2022-06-03 00:42[facility]CT [facility]ONES WO CONon 12-28-1928FK FACIAL BONES WO CONEXAM: CT FACIAL BONES WO CON HISTORY: UNSPECIFIED [...] Electronically authenticated by: JOZEF SANTAMARIA Date: 2022-06-03 00:25[facility] HospitalCT HEAD WO CONon 23-82-6714JU HEAD WO CONEXAMINATION: CT HEAD WO CON HISTORY: UNSPECIFIED INJURY [...] Electronically authenticated by: JOZEF SANTAMARIA Date: 2022-06-03 00:20[facility] Vital Signs Date TimeVital SignValuePerforming RnibkczbeMrmgmsfa15-18-3050 14:13-0400Body .1 cmYixue [employer] Work Phone: [phone] [place], [place] 4450707-15-2025 14:13-0400Body mass index (BMI) [Ratio]40.77 kg/x0Ptqdq [employer] Work Phone: [phone] [place], [place] 4450707-15-2025 14:13-0400Body yjoyikbtkzh38.01 [degF]Yixolivia [employer] Work Phone: [phone] [place], [place] 4450707-15-2025 14:13-0400Body xdkmre070.13 kgYixue [employer] Work Phone: [phone] [place], [place] 4450707-15-2025 14:13-0400Diastolic blood mm[Hg]Yixue [employer] Work Phone: [phone] [place], [place] 4450707-15-2025 14:13-0400Heart rate94 /minYixue [employer] Work Phone: [phone] [place], [place] 4450707-15-2025 14:13-0400Systolic blood vogzwres092 mm[Hg]Yixue [employer] Work Phone: [phone] [place], [place] 4450712-26-2024 22:46-0500Body jwjmiy296.1 cmMira Baker MD Work Phone: bCar[facility]12-26-2024 22:46-0500Body mass index (BMI) [Ratio]34.95 kg/t6GbcsawrMira Baker MD Work Phone: Vcharley [facility] HospitalQbox.io [facility] HospitalDvkrao55-90-0938 22:46-0500Body cdkoilhkzpt02.1 [degF]Mira Baker MD Work Phone: [facility]12-26-2024 22:46-0500Body .25 kgMira Baker MD Work Phone: [facility]12-26-2024 22:46-0500Diastolic blood zyesrkpj77 mm[Hg]Mira Baker MD Work Phone: [facility]12-26-2024 22:46-0500Heart rate95 /minMira Baker MD Work Phone: [facility]12-26-2024 22:46-0500 Respiratory rate16 /minMira Baker MD Work Phone: [facility]12-26-2024 22:46-2492PlJ4% (BldA) [Mass fraction]98 %Mira Baker MD Work Phone: [facility]12-26-2024 22:46-0500Systolic blood gydouiie563 mm[Hg]Mira Baker MD Work Phone: [facility]11-15-2024 14:10-0500Blood Pressure LocationMicodey Saravianus [facility]11-15-2024 14:10-0500 Diastolic blood pociecwx18 mm[Hg]Crow Saraviajaycob [facility]11-15-2024 14:10-0500Heart eryt911 /minMicodey Saravianus [facility]11-15-2024 14:10-0500 Respiratory rate16 /minMicodey Saravianus [facility]11-15-2024 14:10-5775PdQ0% (BldA) [Mass fraction]96 %Crowwild Briones [facility]11-15-2024 14:10-0500 Systolic blood mpyxucwa311 mm[Hg]Crow Briones [facility]06-06-2024 11:52-0400 Diastolic blood pkwzqgao50 mm[Hg][address]06-06-2024 11:52-0400Heart rate66 /min[address]06-06-2024 11:52-0400 Respiratory rate18 /minMth [address] [place], [place] [address]106-06-2024 11:52-0400 Systolic blood cyrfhgil531 mm[Hg][address]06-06-2024 10:15-0400Body wvbdjvvwwod06.39 [degF][address] Encounters Encounter DateEncounter TypeCare ProviderFacilityStart: 12-04-2024 End: 08-46-8105vhkjgxqbduHYJFTCJMorgan Hospital & Medical Centertart: 12-04-2024 End: 33-44-0125Wjjvsaixxv hospital visit by physicianWmchealth Lab [facility] LABComment on above:Routine screening for STI (sexually transmitted infection)Start: 11-18-2024 End: 93-72-0634Ppsnaptza identifierYixue [facility] Work Phone: [facility] Dental ClinicStart: 11-18-2024 End: 49-29-8908zlxzvup oral evaluation - problem focusedYixue [facility] Hospitaltart: 26-54-7278mxiercxdehMcndi [facility] DEPARTMENTStart: 06-24-2024 End: 31-86-5371Hrs-admission assessmentDerek Hodge [facility] Start: 05-01-2024 End: 12-73-5864Nazjewdwp department patient visitMira Baker MD Work Phone: [facility] Emergency DepartmentComment on above: Encounter for post surgical wound check (Primary Dx)Start: 04-24-2024 End: 59-83-6436imwvcpxxafVQMNGFAO E POOLMercy Subiaco HospitalStart: 04-24-2024 End: 60-11-6125Ocfzcmkdhu hospital visit by Keyanna Watt NP Work Phone: mthz LaboratoryComment on above:Abnormal bruising; S/P primary low transverse C-sectionStart: 04-19-2024 End: 60-02-1718Mqxvdifzsn and management of inpatientJUSTJD [facility] KIELSelect Medical Specialty Hospital - Cincinnatigisselle Subiaco HospitalStart: 04-18-2024 End: 39-48-9807brknggzfzfFZMVNYF BARTHMercy Tiffin HospitalStart: 04-15-2024 End: 02-27-5867trxhazhdsbCTJL D [facility] Hospitaltart: 04-07-2024 End: 60-77-9410wdeebjfnnoHGXK D [facility] Hospitaltart: 04-02-2024 End: 19-91-1588cqzccrdhryRKUDJ EITAN [facility] HospitalStart: 03-31-2024 End: 10-86-9450dhntaoxauyQXUX D [facility] Hospitaltart: 03-24-2024 End: 49-09-1748ratbavfohlVDEEJAJ BARTHMergisselle Waterbury Hospitaltart: 03-24-2024 End: 28-77-7340Ystaltnkmi hospital visit by Keyanna Watt NP Work Phone: mthz LaboratoryComment on above:36 weeks gestation of pregnancyStart: 03-24-2024 End: 56-60-6082uqzvsgbadyQQTX D [facility] Hospitaltart: 03-21-2024 End: 02-16-5896kchrtzbwyyNHFWMHV PATITO BARTHFacility:FTMCStart: 03-21-2024 End: 88-47-6967Hxrtcxk encounter procedureCrow Briones [facility] Start: 03-17-2024 End: 05-71-2856xzrinyujywLQAL D [facility] Hospitaltart: 03-10-2024 End: 39-16-3077Rowcbqiiwt hospital visit by Troy Watt CNM Work Phone: [facility] Non-Invasive CardiologyComment on above:Syncope, unspecified syncope typeStart: 03-10-2024 End: 40-34-6442otomfjrjzbQQCV Yi [facility] Hospitaltart: 03-03-2024 End: 15-08-3127ribgkrscbnWFHG D [facility] Hospitaltart: 02-29-2024 End: 64-07-4547zbohwenanvOBWWSOS YiRUBIOBHARTIMarietta Osteopathic Clinictart: 02-04-2024 End: 75-13-0207asemfnuxclUKCA D [facility] Hospitaltart: 95-13-6868mzxljseqyuXWDLUUB BARTHMercy Tiffin HospitalStart: 01-14-2024 End: 01-32-7937bfbcivockkWEWHEEG BARTHMercy Tiffin HospitalStart: 01-14-2024 End: 55-44-3089Hhrwrqpjqk hospital visit by Keyanna Watt NP Work Phone: mthz LaboratoryComment on above:26 weeks gestation of pregnancyStart: 01-14-2024 End: 25-87-5204vdcqxsskytAYRPFDL BARTHMercy Tiffin HospitalStart: 12-11-2023 ambulatoryTaimelda Dc [facility] HPWOStart: 10-11-2023 End: 69-70-4073Cmotpjwdgx hospital visit by physicianWmchealth Op Treatment Rm 03M[facility] ([facility])Start: 06-03-2022 End: 66-23-0166xnhkisqewnRYMZY PARKERFacility:H1 Procedures DateProcedureProcedure DetailPerforming ClinicianStart: 27-30-1754Abant multiple organisms amplified probe tqTeresa Watt CNM Work Phone: Start: 11-18-2024 End: 15-99-4382hormkeki - single radiographic imageYijuan m Mcgregor DDSStart: 11-18-2024 End: 28-78-2772whlncinpza, erupted tooth or exposed root (elevation and/or forceps removal)Yixolivia Mcgregor DDSStart: 11-18-2024 End: 17-89-2120srqcwxisj - periapical first radiographic imageYixolivia Mcgregor DDS Start: 11-18-2024 End: 68-18-7209zodxywjprjv counseling for control of dental diseaseYijuan m Mcgregor DDS Start: 38-98-1807Hucky count hemoglobinKathleen E Pool SURFACE PLATE INSPECTOR - CNM Work Phone: Start: 66-81-8293Pyqugcj tolerance test gtt 3 specimensJusteen Kiel SURFACE PLATE INSPECTOR - CNM Work Phone: Start: 83-03-7161Gkktmvkivlcgr metabolic panelJusteen Kiel SURFACE PLATE INSPECTOR - CNM Work Phone: Start: 94-75-3687Jgqjjdcyciv observation [Identifier] in Cervix by Cyto stainMt 03H/O: sectionS/P primary low transverse C-sectionBianka Finley SURFACE PLATE INSPECTOR - LEAD ASSISTANT MANAGER Work Phone: Plan of Treatment DateCare ActivityDetailAuthorStart: 45-46-0645HGyS/Tdap/Td vaccine (6 - Td or Tdap)DTaP/Tdap/Td vaccine (6 - Td or Tdap)[facility] HospitalStart: 70-56-6751Njhxjdkmh for malignant neoplasm of cervixPap smearBON WYANDOT MEMORIAL HOSPITALStart: 12-07-2025 End: 16-90-1639Llhejhm encounter ybhexlrvb69/03/2026 6:30 PM EDT Office Visit [facility] OBSTETRICS & GYNECOLOGY Part of [address] [place] [address] Teresa Dyson APRN - YUVAL [address] [place], [place] [phone] [facility] OBSTETRICS & GYNECOLOGY Part of [facility] HospitalComment on above:AnnualStart: 87-33-8043Kbrvxugimy MonitoringDepression MonitoringBon [facility]itan HospitalStart: 78-44-9120Bdwklpyla vaccinationFlu vaccine (#1)[facility] ClinicStart: 57-55-4119IywrSt. [facility] Work Phone: Start: 50-46-9069Jomrltplul MonitoringDepression MonitoringBON WYANDOT MEMORIAL HOSPITALStart: 06-02-2024 End: 89-53-0886ekjduvseam63/27/2025 9:15 AM EST Visit [facility] OBSTETRICS & GYNECOLOGY [address] [place] [address] Teresa Dyson APRN - CNChrist[place] [phone] [address] [facility] Children's HospitalComment on above: 6wk PPVStart: 05-08-2024 End: 97-69-4239zlilvgspui98/02/2025 11:30 AM EST Visit [facility] OBSTETRICS [address] [place] [id number] Teresa Dyson APRN [place]IEChrist[place] [phone] 1wk Incicsion checkMERCY HEALTH ST[facility] OB[facility]ICS [facility] Children's HospitalComment on above:1wk Incicsion checkStart: 04-28-2024 End: 74-04-8672Bvdpaer encounter ggeshykbj02/23/2024 10:15 AM EST Routine [facility] OBSTETRICS & GYNECOLOGY [address] [place] [phone] Teresa Dyson APRN - CN[address] [address] *[facility] & [facility] HospitalComment on above:*CStart: 04-15-2024 End: 61-77-9751Lhjizuy encounter dpjriqkee09/10/2024 9:30 AM EST Routine [facility] OBSTETRICS & GYNECOLOGY Part of [address] [place] [id number] Teresa Dyson APRN - CNM [address] [place] [address] OB [facility] OBSTETRICS & GYNECOLOGY Part [facility] Comment on above:OB BPPStart: 04-15-2024 End: 86-80-8307Tjsvtuyezanz / ancillary services /10/2024 9:00 AM EST Ancillary Procedure [facility] OBSTETRICS & GYNECOLOGY Part of [address] [place] [phone] OB [facility] OBSTETRICS & GYNECOLOGY Part [facility] HospitalComment on above:OB BPPStart: 04-07-2024 End: 17-23-2440Ettfxfl encounter vipjkkxoi77/02/2024 10:00 AM EST Routine [facility] OBSTETRICS & GYNECOLOGY Part of [address] [place] [phone] Teresa Dyson APRN - CNM [address] [place] [address] OB [facility] OBSTETRICS & GYNECOLOGY [facility] Comment on above:OB BPPStart: 04-07-2024 End: 51-33-8078Gmqcjbvaqjlb / ancillary services uuhmuaaiya81/02/2024 9:30 AM EST Ancillary Procedure [facility] OBSTETRICS & GYNECOLOGY Part of [address] [place] [address] OB [facility] OBSTETRICS & GYNECOLOGY Part [facility] HospitalComment on above:OB BPPStart: 03-31-2024 End: 30-83-3119Iazepki encounter widekirln08/25/2024 1:00 PM EST Routine [facility] OBSTETRICS & GYNECOLOGY Part of [address] [place] [address] Teresa Dyson APRN - CNM [address] [place] [address] OB [facility] OBSTETRICS & GYNECOLOGY Part [facility] Comment on above:OB BPPStart: 03-31-2024 End: 02-63-0238Tpcgqslgwhkk / ancillary services /25/2024 11:30 AM EST Ancillary Procedure [facility] OBSTETRICS & GYNECOLOGY Part of [address] [place] [phone] OB [facility] OBSTETRICS & GYNECOLOGY [facility] HospitalComment on above:OB BPPStart: 03-24-2024 End: 94-42-4429Cwfywqu encounter dlkadfvdy76/18/2024 9:30 AM EST Routine [facility] OBSTETRICS & GYNECOLOGY Part of [address] [place] [address] Teresa Dyson APRN - YUVAL [address] [place] [address] OB [facility] OBSTETRICS & GYNECOLOGY [facility] Comment on above:OB BPPStart: 03-24-2024 End: 29-77-9311Cxlfndtateef / ancillary services onlltjyjvr56/18/2024 9:00 AM EST Ancillary Procedure [facility] OBSTETRICS & GYNECOLOGY Part of [address] [place] [address] [facility] OBSTETRICS & GYNECOLOGY Part [facility] HospitalComment on above:OB BPPStart: 03-17-2024 End: 08-56-8706Wmnoaiy encounter thcaamiha14/11/2024 9:30 AM EST Routine [facility] OBSTETRICS & GYNECOLOGY Part of [address] [place] [address] Teresa Dyson APRN - YUVAL [address] [place] [address] OB [facility] OBSTETRICS & GYNECOLOGY [facility] Comment on above:OB BPPStart: 03-17-2024 End: 04-94-8409Grtkgnewihhf / ancillary services gasvnudyvf10/11/2024 8:30 AM EST Ancillary Procedure [facility] OBSTETRICS & GYNECOLOGY Part of [address] [place] [phone] [facility] HospitalComment on above:OB BPPStart: 03-05-0585Waaqtxwurcj Syncytial Virus (RSV) or age 60 yrs+ (1 - Risk 1-dose series)Respiratory Syncytial Virus (RSV) or age 60 yrs+ (1 - Risk 1-dose series)[facility] REINIERSUMMA HEALTHStart: 02-07-2024 End: 17-89-4667Kucfogo encounter dqkkqruep56/03/2024 9:30 AM EDT Routine [facility] OBSTETRICS & GYNECOLOGY Part of [address] [place] [address] Teresa Dyson APRN - CNM [address] [place] [address] [address] [place] [phone] ob / 30 week / [facility] OB[facility] GYNECOLOGY Part [facility] HospitalComment on above:ob / 30 week / tdapStart: 02-07-2024 End: 53-48-5123Aunlodeekgmk / ancillary services qlcynmsfqm67/03/2024 9:00 AM EDT Ancillary Procedure [facility] OBSTETRICS & GYNECOLOGY Part of [address] [place] [phone] ob / [address] [facility] Part [facility] Comment on above:ob / 30 weekStart: 02-04-2024 End: 23-96-5882Dafapem encounter asdsggcxk77/30/2024 5:00 PM EDT Routine [facility] OBSTETRICS & GYNECOLOGY Part of [address] [place] [address] Teresa Dyson APRN - CNM [address] [place], [place] [phone] ob / 30 week / [facility] HospitalComment on above:ob / 30 week / tdapStart: 02-04-2024 End: 84-32-2578Mdnjkllgfgmb / ancillary services xyiqzodwjc91/30/2024 4:30 PM EDT Ancillary Procedure [facility] OBSTETRICS & GYNECOLOGY Part of [address] [place] [address] ob / [address] [facility] OBSTETRICS & GYNECOLOGY [facility] Comment on above:ob / 30 weekStart: 59-49-4140Hone Vaccine during PregnancyTdap Vaccine during PregnancyBON WYANDOT MEMORIAL HOSPITALStart: 19-49-9487UKJRU-19 Vaccine ()COVID-19 Vaccine ()[facility]: 16-74-2160HAKED-19 Vaccine ( season)COVID-19 Vaccine ()[facility] ClinicStart: 05-72-1795Usuatdhmx vaccinationBON WYANDOT MEMORIAL HOSPITALStart: 11-29-2023 End: 80-02-1884Aornsty encounter kcblrnfna98/25/2024 10:30 AM EDT Routine [facility] OBSTETRICS & GYNECOLOGY Part of [address] [place] [phone] Teresa Dyson APRN - YUVAL [address] [place] [address] [address] [place] [address] ob / [address] [facility] OBSTETRICS & GYNECOLOGY [facility] HospitalComment on above:ob / 20 weekStart: 11-29-2023 End: 97-86-9285Pyahouavablr / ancillary services bwoodserfd77/25/2024 9:30 AM EDT Ancillary Procedure [facility] OBSTETRICS & GYNECOLOGY Part of [address] [place] [phone] ob / [address] [facility] OBSTETRICS & GYNECOLOGY [facility] Comment on above:ob / 20 weekStart: 10-29-2023 End: 34-02-8081Kycduud encounter uebrgzvgg16/24/2024 5:45 PM EDT Routine [facility] OBSTETRICS & GYNECOLOGY Part [address] [place] [phone] Teresa Dyson APRN - YUVAL [address] [facility] [address] [place] [phone] [address] [address]OLOGY [facility] HospitalComment on above:obStart: 10-18-2023 End: 94-66-2641Rjlznpy encounter pihhmnkqs30/13/2024 4:30 PM EDT Routine [facility] OBSTETRICS GYNECOLOGY [address] [place] [address] ob / weight check [facility] OBSTETRICS GYNECOLOGY [facility] HospitalComment on above:ob / weight check KENDRICK PtStart: 63-01-3838XUpG/Tdap/Td vaccine (1 - Tdap) DTaP/Tdap/Td vaccine (1 - Tdap)[facility] 2015 Hepatitis B vaccine (1 of 3 - 19+ 3-dose series)Hepatitis B vaccine (1 of 3 - 19+ 3-dose series)[facility]art: 98-90-8824Ujoxsohoqsgt 0-49 years Vaccine (1 of 2 - PCV)Pneumococcal 0-49 years Vaccine (1 of 2 - PCV)[facility]: 76-09-7038Nkmvxfuco vaccine (1 of 2 - 13+ 2-dose series)Varicella vaccine (1 of 2 - 13+ 2-dose series)[facility] Start: 42-78-3111Xsoalibyqbcs 0-64 years Vaccine (1 of 2 - PCV)Pneumococcal 0-64 years Vaccine (1 of 2 - PCV)[facility]: 29-60-3072Wcjxwpcnc vaccine (1 of 2 - 2-dose childhood series)Varicella vaccine (1 of 2 - 2-dose childhood series)[facility]: 44-16-7200TFTGU-19 Vaccine (#1) COVID-19 Vaccine (#1)[facility]ENTERStart: 33-98-2599Vbjrblgip B vaccine (1 of 3 - 3-dose series)Hepatitis B vaccine (1 of 3 - 3-dose series)[facility] CENTERC.trachomatis N.gonorrhoeae DNAC.trachomatis N.gonorrhoeae DNA Microbiology Routine Routine screening for STI (sexually transmitted infection) 12/04/2024 10:51 AM EDTBon [facility] End: 49-32-0512Cakmrig, Strep B Screen, Vaginal/RectalBon [facility] Comment on above:1 Occurrences starting 03/24/2024 until 03/24/2024 End: 15-56-7354Tcwnytw, Wound (with Gram Stain)[facility] ClinicComment on above:One Time for 1 Occurrences starting 05/01/2024 until 05/01/2024 End: 61-32-6899Nvymaooa cardiac holter monitor (3 days-14 day)[facility] ClinicComment on above:1 Occurrences starting 03/10/2024 until 03/10/2024 Immunizations Immunization DateImmunizationNotesCare UxvatlkeMugcpwxf44-08-5521ndehtgv toxoid, reduced diphtheria toxoid, and acellular pertussis vaccine, adsorbedJusteen Kiel Watt CNM Work Phone: [facility] Payers DatePayer CategoryPayerPolicy [id number] 2.840.1.616794.3.57[id number] 2.0.1.050670.3.57[id number] 2.0.1.493101.3.57[id number] 2.0.1.521022.3.57[id number] 2.16.840.1.116296.3.57[id number] 2.16.840.1.836116.3.57[id number] 2.16.840.1.915932.3.57[id number] 2.16.840.1.341204.3.57[id number] 2.16.840.1.661957.3.57[id number] 2..840.1.777249.3.57[id number] 2.840.1.413149.3.57[id number] 2..840.1.001591.3.57[id number] 2.840.1.410181.3.57[id number] 2.16.840.1.022467.3.57[id number] 2.840.1.814287.3.57[id number] 2.16.840.1.958788.3.57[id number] 2.16.840.1.771663.3.57[id number] 2.16.840.1.196153.3.57[id number] 2.16.840.1.041278.3.57[id number] 2.16.840.1.001491.3.57[id number] 2.16.840.1.396327.3.57[id number] 2.16.840.1.022425.3.57[id number] 2.16.840.1.87894[id number] Social History DateTypeDetailFacilityStart: 05-07-2022 End: 59-78-9766Ilbmzap smoking status NHISSmokes tobacco dailyBANNER GOLDFIELD [facility] Krossover [facility]Start: 66-97-6119Wargbbc of tobacco useCigarette SmokerBANNER GOLDFIELD [facility] TheCommentorStart: 10-11-2023 End: 00-56-1784Uzlocsp intakeEx-drinker (finding)[facility]ITALCloudStrategies [facility]OS[facility]ITALStart: 10-11-2023 End: 54-80-2528Ycvmaqm of Social functionTAUNTON STATE HOSPITALCloudStrategies [facility]OS[facility]ITALStart: 10-11-2023 End: 84-22-4965Kyxedbc use panelBANNER GOLDFIELD MEDICAL CENTER Krossover HEALTHHow hard is it for you to pay for the very basics like food, housing, medical care, and heatingNot hard at allBANNER GOLDFIELD MEDICAL CENTER TheCommentor(I/We) worried whether (my/our) food would run out before (I/we) got money to buy more.Never trueBANNER GOLDFIELD MEDICAL CENTER TheCommentorAt any time in the past 12 months, were you homeless or living in care home [including now]?NoBANNER GOLDFIELD MEDICAL CENTER Krossover [facility]ITALStart: 32-09-3473SvjazpcfiVZR TheCommentorStart: 11-72-5420Ygs Assigned At BirthNot on fileBANNER GOLDFIELD MEDICAL CENTER TheCommentor Start: 12-27-2023 End: 00-52-5502Uqioxyx use and exposureSmokeless tobacco non-userBANNER GOLDFIELD MEDICAL CENTER TheCommentorStart: 72-65-1173Sswcrqu smoking statusHeavy tobacco smoker (finding)[facility] CampusThe thought of harming myself has occurred to meNeverCarilion ClinicStart: 13-76-0968Cbhbups smoking status NHIS Unknown if ever smokedBellevue Medical Centertart: 11-18-2024 Alcohol intakeAlcohol Use DetailsBellevue Medical Centertart: 31-94-4139Xxu Assigned At BirthFeStony Brook Southampton Hospitaltart: 49-85-4117ImgIobdsj (finding)[facility] Functional Status FjusMfbmwqtgzhQirbjhFaxsrppa86-44-4217Fkqxqlugyf StatusN/[facility] Clinical Notes 05-01-2024 to 11-18-2024 Note Date & KqlyRexmZpyrvihi77-42-8559 History of Present illness Narrative* Encounter Date Complaint History Of Prese nt Illness [facility] Work Phone: 1(819) 487-651612-26-2024 Hospital Discharge instructions* Discharge Instructions* Mira Baker MD - 05/01/2024 11:06 PM EST Keep clean with soap and water use Hibiclens daily in the shower. ABD dressings as needed for drainage follow-up with your OB provider soon as possible. He must seek medical attention immediately shedevelop any fevers chills sweats erythema or drainage from wound or other acute concerns * Attachments The following attachments cannot be sent through Care Everywhere. * Wound Check (Irish) [facility]Cons[facility]* Clinical Note Date No Information [facility] Work Phone: Discharge summary* Clinical Note Date No Information [facility] Work Phone: Evaluation + Plan note Future Appointments Appointment Date:06/24/2024 02:15:00 PM Scheduled Provider:Derek Hodge PA-C Location:FT.Cardiology Clinic Appointment Type:Cardiology Follow Up (FT) Future Scheduled Tests Radiology* Echo Transthoracic Complete 03/22/24 [facility] Evaluation note* Diagnosis 26 weeks gestation of state, incidental documented in this encounter [facility]ENTERKaldooraalusouth coastal [facility] campus emergency department note* Diagnosis Syncope, unspecified syncope type documented in this encounter [facility] note* Diagnosis 36 weeks gestation of state, incidental documented in this encounter [facility] note* Diagnosis Abnormal bruising Other symptoms involving skin and integumentary tissues S/P primary low transverse delivery, without mention of indication, unspecified as to episode of care documented in this encounter [facility] note* Diagnosis Encounter for post surgical wound check- Primary documented in this encounter [facility] note* Type Assessment Date No Information [facility] Work Phone: Evaluation note* Diagnosis Routine screening for STI (sexually transmitted infection) Screening examination for venereal disease documented in this encounter [facility] and physical note* Clinical Note Date No Information [facility] Work Phone: History of Past illness Narrative* Condition Effective Dates (start - stop) O utcome No Information [facility] Work Phone: Hospital course Narrative No data available for this section [facility] Hospital Discharge instructions No data available for this section [facility] Instructions* Date Instruction Additional Infor mation No Information [facility] Work Phone: Progress note No data available for this section [facility] Progress note* Clinical Note Date No Information [facility] Work Phone: Reason for referral (narrative)* Reason For Referral No Information [facility] Work Phone: Review of systems Narrative - Reported* System Pos/Neg Findings No Information [facility] Work Phone: Summary Purpose Family History No Family History Records Found Family Member Type Diagnosis Age At Onset No Information Advance Directives No Advanced Directives Records Found Date ActivatedDate LwzyqngogcqZamdsvwn08/25/2024 10:10 03/01/2024 6:47 AMDate ActivatedDate MksrnrrtuvqKxkbiddg29/25/2024 10:10 03/01/2024 6:47 AMDate ActivatedDate OxxvviyqrbcWscdpuyb52/17/2024 9:53 AM04/22/2024 2:25 PMDate ActivatedDate AwlyggckvgqSwkzutjl59/14/2024 6:22 PM04/20/2024 8:04 AMDate ActivatedDate XwzzxfawioyGiegpmtz97/27/2024 12:49 PM04/02/2024 6:12 PMDate ActivatedDate FppujrjomxcEsnphffy19/25/2024 10:10 03/01/2024 6:47 AM Directive Yes / No Effective Date File Name No Information Reason for Referral SpecialtyDiagnoses / ProceduresReferred By ContactReferred To ContactCardiology Diagnoses Syncope, unspecified syncope type Procedures Extended cardiac holter monitor (3 days-14 day) [place] EXTERNAL ECG REC>48HR<7D REVIEW & INTERPRETATION [place] EXTERNAL ECG REC>48HR<7D RECORDING FL EXTERNAL ECG REC>7D<15D RECORDING FL EXTERNAL ECG REC>7D<15D REVIEW & INTERPRETATION Teresa Dyson APRN - MELANIEM [address] [place] [address] Referral IDStatusReasonStart DateExpiration DateVisits RequestedVisits [id number]/4/202411/4/202511 Chief Complaint and Reason for Visit From encounter dated '11/18/2024 13:45'. er (chief complaint) Additional Source Comments INFORMATION SOURCE (unrecogn ized section and content) DATE CREATED AUTHOR 06/05/2022 [facility] DATE CREATED AUTHOR AUTHOR'S ORGANIZ ATION 12/13/2023 [facility] DATE CREATED AUTHOR AUTHOR'S ORGANIZ ATION 03/26/2024 [facility] DATE CREATED AUTHOR AUTHOR'S ORGANIZ ATION 11/24/2024 [facility] DATE CREATED AUTHOR AUTHOR'S ORGANIZ ATION 12/06/2024 [facility] DATE CREATED AUTHOR AUTHOR'S ORGANIZ ATION 12/06/2024 [facility] Care Teams (unrecognized sec tion and content) Team MemberRelationshipSpecialtyStart DateEnd Date Bianka Finley, SURFACE PLATE INSPECTOR - LEAD ASSISTANT MANAGER PCP - General05/15/22Te MemberRelationshipSpecialtyStart DateEnd Date Bianka Finley, SURFACE PLATE INSPECTOR - LEAD ASSISTANT MANAGER [address] [place] [address] PCP - General05/15/22Team MemberRelationshipSpecialtyStart DateEnd Date Bianka Finley, SURFACE PLATE INSPECTOR - LEAD ASSISTANT MANAGER [address] [place] [address] PCP - [facility]05/15/22Team MemberRelationshipSpecialtyStart DateEnd Date Bianka Finley, SURFACE PLATE INSPECTOR - LEAD ASSISTANT MANAGER [address] [place] [address] PCP - [facility]05/15/22Te MemberRelationshipSpecialtyStart DateEnd Date Bianka Finley, SURFACE PLATE INSPECTOR - LEAD ASSISTANT MANAGER [address] [place] [address] PCP - General05/15/22Team MemberRelationshipSpecialtyStart DateEnd Date Bianka Finley, SURFACE PLATE INSPECTOR - LEAD ASSISTANT MANAGER [address] [place] [address] PCP - [facility]05/15/22 Name Effective Dates (start - stop) Status Members No Information Team MemberRelationshipSpecialtyStart DateEnd Date Bianka Finley, SURFACE PLATE INSPECTOR - LEAD ASSISTANT MANAGER [address] [place] [phone] PCP - General05/15/22 Reason for Visit (unrecogniz ed section and content) SpecialtyDiagnoses / ProceduresReferred By ContactReferred To ContactCardiology Diagnoses Syncope, unspecified syncope type Procedures Extended cardiac holter monitor (3 days-14 day) FL EXTERNAL ECG REC>48HR<7D REVIEW & INTERPRETATION FL EXTERNAL ECG REC>48HR<7D RECORDING FL EXTERNAL ECG REC>7D<15D RECORDING FL EXTERNAL ECG REC>7D<15D REVIEW & INTERPRETATION Teresa Dyson APRN - YUVAL [address] [place] [address] Referral IDStatusReasonStart DateExpiration DateVisits RequestedVisits [id number]/4/202411/4/671850ZdxtuuNsifzbcyHaiah CheckPT. Reports the . Vacuum seal placed on incision on 04/28 by OB. Pt. Reports foul odor & bleeding & was told to remove dressing by OB earlier today. Ordered Prescriptions (unrec ognized section and content) PrescriptionSigDispensedRefillsStart DateEnd Date chlorhexidine gluconate (HIBICLENS) 4 % SOLN external [...] BE BASED ON THE PRIMARY CLINICAL RECORDS. [employer] provides no warranty or guarantee of the accuracy or completeness of information in this document.
--- OUTSIDE RECORDS SUMMARY | 2025-03-17 17:38 | XMS_ITS | Clinical Summary ---
[facility] Organization [facility] Address [id number] [address] [place] [address] Care Team Providers Care Manager Of Sustainability Name Role Phone No Pcp, No Pcp Primary Care Provider Unavailabl e Allergies No known active allergies Medications No known medications Social History Tobacco UseTypesPacks/DayYears UsedDateSmoking Tobacco: Every DayCigarettes Smokeless Tobacco: NeverAlcohol UseStandard Drinks/WeekCommentsYes0 (1 standard drink = 0.6 oz pure alcohol)twice monthlyChildcareAnswerDate RecordedChildcare Eiwdpmn3210/16/2018EmploymentAnswerDate MfzmxeyaGfkntbvztfPiwhzyl02/12/2019Purpose - LifeAnswerDate RecordedPurpose and direction in dgntCuasthf55/11/2021 CommentsNoSex and Gender InformationValueDate RecordedSex Assigned at BirthNot on fileLegal HfgEctwqm37/06/2015 12:08 PM EDTGender IdentityNot on fileSexual OrientationNot on file Last Filed Vital Signs Vital SignReadingTime TakenCommentsBlood Wtlveljk469/9607 1:11 AM EDT Qidnw01488/09/2019 1:11 AM TIIBnwgsaxieil25.5 ??C (99.5 ??F)11/12/2018 1:11 AM EDTRespiratory Kwuj601411/12/2018 1:11 AM EDTOxygen Dbmlelqdah134%11/12/2018 1:11 AM EDTInhaled Oxygen Concentration--Teptrt199.9 kg (251 lb)11/12/2018 1:11 AM FHWUluskq752.7 cm (5' 8 )11/12/2018 1:11 AM EDTBody Mass Index38.1607 1:11 AM EDT Plan of Treatment Health MaintenanceDue DateLast DoneCommentsDepression Tpqcljotm90/11/2009Tobacco Rbmravokq65/11/2009dult BMI Hihmyidhj59/11/2015DTaP,Tdap and Td Vaccines (1 - Tdap)2015Pap Smear2017Influenza Qtcjgme8301/05/2025 Medical Devices Not on file Insurance Care Teams Team MemberRelationshipSpecialtyStart DateEnd Date No Pcp, [place] [address] PCP - GeneralFamily Medicine11/12/18
--- NOTE | 2025-03-17 18:09 | US_ITS ---
[place] [id number] Patient Name: МАРИНА SAMSON MRN: [facility]:[id number] date: 1995 Sex: F Assigned Patient Location: ED.MAIN Current Patient Location: Accession/Order Number: [id number] Exam Date: 03/17/2025 18:20 Report Date: 03/17/2025 19:30 At the request of: RACHID LIMA DO Procedure: US OB transvaginal First trimester ultrasound INDICATION: Rule out ectopic COMPARISON: None FINDINGS: Within the uterus, there is a gestational sac, yolk sac pole and cardiac activity visualized. heart rate 124 beats per minutes. Uterus is anteverted. Cervical length 4.4 cm and closed. Right ovary 3.7 x 2.5 x 2.7 cm. Right sided coronary disease status 1.8 x 1.5 x 1.7 cm. Left ovary 3.1 x 1.7 x 2.9 cm. US/US OB transvaginal IMPRESSION: Single live intrauterine . heart rate 124 beats per minutes. Impression dictated by: Aguilar Simms M.D. 03/17/2025 7:30 PM Dictation Location: [place] [address] Electronically authenticated by: [id number] Y Date: 03/17/2025 19:30
== END 2025-03-17 19:19 | disposition home or self-care (01) ==
PROVIDERS: Physician Assistant; Emergency Provider Student in an Organized Health Care Education/Training Program
DX: Z34.91 Encounter for supervision of normal pregnancy, unspecified, first trimester (principal)
CPT/HCPCS: 36415; 76817; 84702; 84703; 99285

== ENCOUNTER 2025-04-22 19:32 | Emergency (ER) | payer OTHER, SELFPAY ==
--- OUTSIDE RECORDS SUMMARY | 2024-11-18 08:45 | XMS_ITS | Continuity of Care Document ---
Author Organization [facility] Address [address] [place] [address] Phone Care Team Providers Care Business Reporter Name Role Phone Balbir RED, Yixue Unavailable [...] 1st Film Nutrit Couns For Control Of [place] Dis Nov Limited Oral Eval Extract; Erupted Th/exposted Rt 025 Advance Directives Directive Yes / No Effective Date File Name No Information Encounters Encounter Description Practice Location Reason(s) For Visit Diagnoses Date Provider Providers Copied on Encounter [facility], [address] [place] [address], [id number], [place] tel:[phone] [facility] Dental Clinic er (chief complaint) Encounter for screening for dental disorders Balbir RED Yixue. [address] [place] [address], [id number], [place]. tel:[phone] Family History Family Member Type Diagnosis Age At Onset No Information Payers Payer name Insurance type Covered libertarian ID Authoriza tion(s) D Hum[employer] Medicaid [employer]quest [facility] [id number] D Medicaid Wrap - [facility] [id number] Social History Type Description Quantity Date Captured [...]
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
[2025-04-22 19:39] VITALS: BP 140/72; PULSE 97; TEMP 37.2; O2SAT 99; BMI 40.8
--- NOTE | 2025-04-22 19:47 | US_ITS ---
[address] [address] Patient Name: МАРИНА SAMSON MRN: [facility]:[id number] date: 1995 Sex: F Assigned Patient Location: ER Current Patient Location: .[facility] Accession/Order Number: [id number] Exam Date: 04/22/2025 19:54 Report Date: 04/22/2025 21:00 At the request of: ROSCOE WILLIS MD Procedure: US OB transvaginal US OB transvaginal 04/22/2025 8:32 PM SIGNS AND SYMPTOMS: ^01/28/25 ^bleeding \S.br\ COMPARISON: None. TECHNIQUE: Limited pelvic ultrasound using transvesical sonography. FINDINGS: An intrauterine is identified. The pole has an estimated gestational age of 10 weeks and 1 day by crown-rump length which measures 3.2 cm . No heart rate is visible. A normal amount of amniotic fluid is present. There is an area of hypoechogenicity within the mid uterus suggesting an area of subchorionic hemorrhage measuring 1.0 x 1.4 x 1.8 cm. Pelvic survey reveals no gross abnormalities. The cervix measures 3.0 cm in length. There is a small amount of fluid within the endometrial canal. The internal os is slightly (with funneling of the membranes. US/US OB transvaginal IMPRESSION: There is an intrauterine with an estimated gestational age of 10 weeks and 1 day. No heart rate is visible suggesting demise. There is an area of hypoechogenicity within the mid uterus suggesting an area of subchorionic hemorrhage measuring 1.0 x 1.4 x 1.8 cm. Impression dictated by: Maurice Lou M.D. 04/22/2025 9:00 PM Dictation Location: [place] [address] Electronically authenticated by: [id number] Y Date: 04/22/2025 21:00
--- NOTE | 2025-04-22 20:29 | ED.FEMALEGU1 ---
HPI - Female Genitourinary General Chief complaint: OB/Uterine Contractions Stated complaint: 13 weeks , abnormal bleeding Time Seen by Provider: 04/22/25 19:42 Source: patient Mode of arrival: walk-in History of Present Illness HPI Narrative: This 29-year-old female who is approximately 13 weeks presents for evaluation of vaginal bleeding. The patient thinks she is having a miscarriage. She has had multiple miscarriages in the past. She is having some lower abdominal cramping and states she has been passing large clots. She has had 2 ultrasounds with this . She denies any dizziness or shortness of breath. She declines need for anything for pain. She states that her blood type is O+ and she has never required RhoGAM. Related Data Home Medications ?Medication ?Instructions ?Recorded ?Confirmed No Known Home Medications 03/17/25 03/17/25 Allergies Allergy/AdvReac Type Severity Reaction Status Date / Time No Known Drug Allergies Allergy Verified 09/25/24 21:49 Review of Systems ROS Status of ROS 10 or more systems reviewed and unremarkable except as noted in history and below PFSH PFS Social History Little interest or pleasure in doing things: not at all Feeling down, depressed, or hopeless: not at all Exam Narrative Exam Narrative: Vital signs and Nursing Notes reviewed: Patient is afebrile with an elevated pulse at 97, blood pressure is elevated at 140/72, she is not hypoxic with pulse ox of 99% on room air General: Awake, alert, oriented, slightly tearful otherwise no acute distress, lying comfortably on the stretcher HEENT: Normocephalic atraumatic, mucous membranes are moist and pink, eyes are clear, normal conjunctiva, vision is grossly intact Chest: Lungs are clear to auscultation with good air entry, there is no wheezing rhonchi or rales appreciated no accessory muscle use, patient is speaking in complete sentences-no chest wall tenderness to palpation CVS: Regular rate and rhythm S1-S2, no murmurs rubs or gallops, pulses are brisk and equal bilaterally ABD: Obese, soft, nondistended Extremities: Moving all extremities, no lower extremity tenderness or swelling noted, negative Homans' sign, pulses are brisk and equal bilaterally Skin: Normal in appearance without rash,pallor, petechiae or purpura Neuro: No focal deficits Constitutional Vital Signs, click to edit/add: Last Vital Signs Temp 98.9 F 04/22/25 19:39 Pulse 97 H 04/22/25 19:39 Resp 16 04/22/25 19:39 BP 140/72 04/22/25 19:39 Pulse Ox 99 04/22/25 19:39 O2 Del Method Room Air 04/22/25 19:39 Course Vital Signs Vital signs: Vital Signs Temperature 98.9 F 04/22/25 19:39 Pulse Rate 97 H 04/22/25 19:39 Respiratory Rate 16 04/22/25 19:39 Blood Pressure 140/72 04/22/25 19:39 Pulse Oximetry 99 04/22/25 19:39 Oxygen Delivery Method Room Air 04/22/25 19:39 Temperature 98.9 F 04/22/25 19:39 Pulse Rate 97 H 04/22/25 19:39 Respiratory Rate 16 04/22/25 19:39 Blood Pressure 140/72 04/22/25 19:39 Pulse Oximetry 99 04/22/25 19:39 Oxygen Delivery Method Room Air 04/22/25 19:39 MDM - Female Genitourinary MDM Narrative Medical decision making narrative: This 29-year-old female presents for evaluation of lower abdominal cramping and vaginal bleeding that started on Sunday night. She states she thinks she is having a miscarriage because she has had multiple miscarriages in the past. She denied any need for anything for pain. She has no dizziness or syncope. She has not had a fever. Her ultrasound shows a 10-week intrauterine gestation without a heart rate consistent with demise. She has a normal white count and stable hemoglobin. Her blood type is O+. 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 She was given a copy of her ultrasound report to share with her. She states that time she has had D&Cs and other times she has passed her miscarriages at home. This will be her 10th miscarriage. She has 1 living child. Lab Data Labs: Lab Results 04/22/25 Range/Units 20:40 WBC 13.3 H (4.0-11.0) 10^3/uL RBC 4.09 L (4.20-5.40) 10^6/uL Hgb 13.1 (12.0-16.0) g/dL Hct 37.6 (36.0-48.0) % MCV 91.9 (81.0-99.0) fL MCH 32.0 (26.7-34.0) pg MCHC 34.8 (29.9-35.2) g/dL RDW 13.6 (11.0-15.0) % Plt Count 299 (150-450) 10^3/uL MPV 9.6 (9.5-13.5) fL Neut % (Auto) 65.4 (43.0-75.0) % Lymph % (Auto) 26.4 (20.5-60.0) % Atlantic % (Auto) 4.4 (1.7-12.0) % Eos % (Auto) 2.2 (0.9-7.0) % Baso % (Auto) 0.3 (0.2-2.0) % Neut # (Auto) 8.7 H (1.4-6.5) 10^3/uL Lymph # (Auto) 3.5 (1.2-3.8) 10^3/uL Atlantic # (Auto) 0.6 (0.3-0.8) 10^3/uL Eos # (Auto) 0.3 (0.0-0.7) 10^3/uL Baso # (Auto) 0.0 (0.0-0.1) 10^3/uL Abs Immat Gran (auto) 0.17 H (0.00-0.03) 10^3/uL Imm/Tot Granulo (auto) 1.3 H (0.0-0.5) % Sodium 137 (136-145) mmol/L Potassium 3.5 (3.5-5.1) mmol/L Chloride 102 (98-107) mmol/L Carbon Dioxide 27.8 (21.0-32.0) mmol/L Anion Gap 10.7 BUN 6.0 L (7.0-18.0) mg/dL Creatinine 0.58 (0.55-1.02) mg/dL Est GFR ( Amer) >60 (>=60 mL/min/1.73m^2) Est GFR (Non-Af Amer) >60 (>=60 mL/min/1.73m^2) BUN/Creatinine Ratio 10.3 Glucose 99 (74-106) mg/dL Calcium 9.3 (8.5-10.1) mg/dL Total Bilirubin 0.3 (0.2-1.0) mg/dL AST 9 L (15-37) U/L ALT 19 (14-59) U/L Alkaline Phosphatase 60 (46-116) U/L Total Protein 6.9 (6.4-8.2) g/dL Albumin 3.2 L (3.4-5.0) g/dL Globulin 3.7 g/dL Albumin/Globulin Ratio 0.9 HCG, Quant 55499 mIU/mL Blood Type O Positive Discharge Plan Discharge Chief Complaint: OB/Uterine Contractions Clinical Impression: Miscarriage Patient Disposition: Home, Self-Care Time of Disposition Decision: 21:25 Condition: Good Prescriptions / Home Meds: No Action No Known Home Medications Print Language: Lao Instructions: Miscarriage (ED) Referrals: Physician,Non-Staff, [Primary Care Provider] - 1 week
[2025-04-22 20:46] LABS: Hematocrit 37.6 % (36.0-48.0); Hemoglobin 13.1 g/dL (12.0-16.0); Immature Granulocytes Abs Auto 0.17 10^3/uL (0.00-0.03); Immature Granulocytes Pct Auto 1.3 % (0.0-0.5); Lymphocytes Absolute Auto 3.5 10^3/uL (1.2-3.8); Mean Corpuscular HGB Conc 34.8 g/dL (29.9-35.2); Mean Corpuscular Hemoglobin 32.0 pg (26.7-34.0); Mean Corpuscular Volume 91.9 fL (81.0-99.0); Platelet Count 299 10^3/uL (150-450); Red Blood Count 4.09 10^6/uL (4.20-5.40); White Blood Count 13.3 10^3/uL (4.0-11.0)
--- OUTSIDE RECORDS SUMMARY | 2025-04-22 20:52 | XMS_ITS | Clinical Summary ---
Author Organization [facility] Address [id number] [address] [place] [address] Care Team Providers Care Secretary Book Keeper Name Role Phone No Pcp, No Pcp Primary Care Provider Unavailabl e Allergies No known active allergies Medications No known medications Social History Tobacco UseTypesPacks/DayYears UsedDateSmoking Tobacco: Every DayCigarettes Smokeless Tobacco: NeverAlcohol UseStandard Drinks/WeekCommentsYes0 (1 standard drink = 0.6 oz pure alcohol)twice monthlyChildcareAnswerDate RecordedChildcare Iffpsbb3310/16/2018EmploymentAnswerDate FguwwuknRgqpictcweDzwxbmm23/12/2019Purpose - LifeAnswerDate RecordedPurpose and direction in jfccPogcmbd36/11/2021 CommentsNoSex and Gender InformationValueDate RecordedSex Assigned at BirthNot on fileLegal MsqLplsdv35/06/2015 12:08 PM EDTGender IdentityNot on fileSexual OrientationNot on file Last Filed Vital Signs Vital SignReadingTime TakenCommentsBlood Nusmilkg864/9607 1:11 AM EDT Rikqt86671/09/2019 1:11 AM XQUAmdivtbeqyb61.5 ??C (99.5 ??F)11/12/2018 1:11 AM EDTRespiratory Rbhb274211/12/2018 1:11 AM EDTOxygen Izcdrtkcxm915%11/12/2018 1:11 AM EDTInhaled Oxygen Concentration--Guqdbh624.9 kg (251 lb)11/12/2018 1:11 AM JSNVfazdp652.7 cm (5' 8 )11/12/2018 1:11 AM EDTBody Mass Index38.1607 1:11 AM EDT Plan of Treatment Health MaintenanceDue DateLast DoneCommentsDepression Ttkcpsdar07/11/2009Tobacco Ocnwobujr44/11/2009dult BMI Hhvvxakzo14/11/2015DTaP,Tdap and Td Vaccines (1 - Tdap)2015Pap Smear2017Influenza Mcpgrbs6201/05/2025 Medical Devices Not on file Insurance Care Teams Team MemberRelationshipSpecialtyStart DateEnd Date No Pcp, [place] [address] PCP - GeneralFamily Medicine11/12/18
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
--- OUTSIDE RECORDS SUMMARY | 2025-04-22 20:52 | XMS_ITS | Clinical Summary ---
Author Organization [facility] Address [address] [place] [address] Care Team Providers Care Financial Service Rep Name Role Phone Unavailable Primary Care Provider Unavailabl e Social History Tobacco UseTypesPacks/DayYears UsedDateSmoking Tobacco: Never Assessed CommentsUnknownSex and Gender InformationValueDate RecordedSex Assigned at Htgbye7003/01/2023 8:51 AM EDTLegal NziUcrkas03/15/2023 11:47 PM EDTGender PngfoehiJsnxjv38/26/2023 8:51 AM EDTSexual OrientationNot on file Plan of Treatment Not on file Insurance
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
[2025-04-22 21:16] LABS: Alanine Aminotransferase 19 U/L (14-59); Albumin Globulin Ratio 0.9; Albumin Level 3.2 g/dL (3.4-5.0); Alkaline Phosphatase 60 U/L (46-116); Anion Gap 10.7; Aspartate Amino Transferase 9 U/L (15-37); Blood Urea Nitrogen 6.0 mg/dL (7.0-18.0); Calcium 9.3 mg/dL (8.5-10.1); Carbon Dioxide 27.8 mmol/L (21.0-32.0); Chloride 102 mmol/L (98-107); Estimated GFR (African America >60 (>=60 mL/min/1.73m^2); Estimated GFR (Non-African Ame >60 (>=60 mL/min/1.73m^2); Globulin 3.7 g/dL; Glucose 99 mg/dL (74-106); Potassium 3.5 mmol/L (3.5-5.1); Sodium 137 mmol/L (136-145); Total Protein 6.9 g/dL (6.4-8.2)
== END 2025-04-22 21:33 | disposition home or self-care (01) ==
PROVIDERS: Emergency Provider Emergency Medicine
DX: O03.9 Complete or unspecified spontaneous abortion without complication (principal)
CPT/HCPCS: 36415; 76817; 80053; 84702; 85025; 86900; 86901; 99284

== ENCOUNTER 2025-04-26 13:53 | Emergency (ER) | payer OTHER, SELFPAY ==
--- OUTSIDE RECORDS SUMMARY | 2024-11-18 08:45 | XMS_ITS | Continuity of Care Document ---
Author Organization [facility] Address [address] [place] [address] Phone Care Team Providers Care Forestry Consultant Name Role Phone Balbir RED, Yixue Unavailable Unavailable Allergies, Adverse Reactions, Alerts Substance Reaction Status Criticality No Known Allergies Active No Inform ation Medications Medication Instructions Dosage Effective Dates (start - stop) Status Comments Zoloft 100 mg tablet take 1 tablet by or al route every day 100 MG - Active Zoloft 50 mg tablet take 1 tablet by ora l route every day 50 MG - Active Procedures Procedure Date Bitewig-single Film Intraoral-periapical 1st Film Nutrit Couns For Control Of [place] Dis Nov Limited Oral Eval Extract; Erupted Th/exposted Rt 025 Advance Directives Directive Yes / No Effective Date File Name No Information Encounters Encounter Description Practice Location Reason(s) For Visit Diagnoses Date Provider Providers Copied on Encounter [facility], [address] [place] [address], [id number], [place] tel:[phone] [facility] (chief complaint) Encounter for screening for dental disorders Balbir RED Yixue. [address] [place] [address], [id number], [place]. tel:[phone] Family History Family Member Type Diagnosis Age At Onset No Information Payers Payer name Insurance type Covered green party ID Authoriza tion(s) D [employer] Medicaid [employer] [facility] 0223 [id number] D Medicaid Wrap - [facility] [id number] Social History Type Description Quantity Date Captured Comments Alcohol Use Details Unknown Caffeine Use Details Unknown Tobacco Use Status No Information Smoking Status No Information Sex Female Vital Signs Date / Time: Height Weight BMI Pulse Rate Blood Pressure Temperature Respiratory Rate Body Surface Area Head Circumference Head Circ. Percentile Wt./Dylon. Percentile BMI percentile Pulse Ox Inhaled Ox 2:13 PM 65.00 in 111.130 kg (245.00 lbs) 40.7 7 kg/m eter (2) 94 /min 128/80 mm[Hg] 98.00 F Chief Complaint And Reason For Visit From encounter dated '11/18/2024 13:45'. er (chief complaint) Reason For Referral Reason For Referral No Information Plan Of Treatment Date Type Action Status Goal Hepatitis C screening. Due o n due Goal Hep A. Due on du e Goal Unhealthy drug use screening . Due on due Goal PAP. Due on due Goal RLP. Due on due Goal Influenza vaccine. Due on due Goal PRAPARE ASSESSMENT. Due on due Goal Depression screening. Due on due Goal Tdap. Due on due Goal Tdap Vaccine. Due on 2024 due History Of Present Illness Encounter Date Complaint History Of Prese nt Illness er Functional Status Date Functional Assessmen t No Information Instructions Date Instruction Additional Infor mation No Information Assessments Type Assessment Date No Information Patient Care Teams Name Effective Dates (start - stop) Status Members No Information
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
[2025-04-26 14:02] VITALS: BP 118/73; PULSE 109; TEMP 36.9; O2SAT 98; BMI 42.4
--- NOTE | 2025-04-26 14:16 | US_ITS ---
The [address] [address] Patient Name: МАРИНА SAMSON MRN: [id number] date: 1995 Sex: F Assigned Patient Location: ER Current Patient Location: ER Accession/Order Number: [id number] Exam Date: 04/26/2025 15:20 Report Date: 04/26/2025 15:57 At the request of: JULIUS KWOK MD Procedure: US OB transvaginal OB ultrasound. Reason for exam:Miscarriage. Evaluation for retained products. Comparison:None Technique: Transvaginal imaging of the uterus and ovaries were obtained. Findings: No gestational sac is seen within the endometrial canal. No fibroid is seen. The endometrium appears thickened and heterogenous in echotexture suspicious for retained products of conception. There is associated hyperemia on color Doppler imaging. Ovaries are both visualized and appear unremarkable. Normal arterial and venous Doppler waveforms of the ovaries. No free fluid. US/US OB transvaginal Impression: Thickened heterogenous endometrium suspicious for retained products of conception. Impression dictated by: Marco Scott Jr.OJaison 04/26/2025 3:57 PM Dictation Location: [place] Electronically authenticated by: [id number] Y Date: 04/26/2025 15:57
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
--- OUTSIDE RECORDS SUMMARY | 2025-04-26 14:16 | XMS_ITS | Clinical Summary ---
Author Organization [facility] Address [address] [place] [address] Care Team Providers Care Financial Assistance Advisor Name Role Phone Unavailable Primary Care Provider Unavailabl e Social History Tobacco UseTypesPacks/DayYears UsedDateSmoking Tobacco: Never Assessed CommentsUnknownSex and Gender InformationValueDate RecordedSex Assigned at Opesqw2603/01/2023 8:51 AM EDTLegal CeoVshsaf63/15/2023 11:47 PM EDTGender LywwgtmfXamnuh70/26/2023 8:51 AM EDTSexual OrientationNot on file Plan of Treatment Not on file Insurance
--- OUTSIDE RECORDS SUMMARY | 2025-04-26 14:16 | XMS_ITS | Clinical Summary ---
[facility] Organization [facility] Address [id number] [address] [place] [address] Care Team Providers Care Hand I Tube Bender Name Role Phone No Pcp, No Pcp Primary Care Provider Unavailabl e Allergies No known active allergies Medications No known medications Social History Tobacco UseTypesPacks/DayYears UsedDateSmoking Tobacco: Every DayCigarettes Smokeless Tobacco: NeverAlcohol UseStandard Drinks/WeekCommentsYes0 (1 standard drink = 0.6 oz pure alcohol)twice monthlyChildcareAnswerDate RecordedChildcare Mmfuupk2110/16/2018EmploymentAnswerDate TysgcdnnOdphotjyyhUdcpvue01/12/2019Purpose - LifeAnswerDate RecordedPurpose and direction in gvktWoizfyz88/11/2021 CommentsNoSex and Gender InformationValueDate RecordedSex Assigned at BirthNot on fileLegal MoiEvuthp71/06/2015 12:08 PM EDTGender IdentityNot on fileSexual OrientationNot on file Last Filed Vital Signs Vital SignReadingTime TakenCommentsBlood Zumvmsng315/9607 1:11 AM EDT Iruqk25147/09/2019 1:11 AM WYCAxowwaojcxv39.5 ??C (99.5 ??F)11/12/2018 1:11 AM EDTRespiratory Pilk072811/12/2018 1:11 AM EDTOxygen Eipxmkmpkp493%11/12/2018 1:11 AM EDTInhaled Oxygen Concentration--Hgthnk528.9 kg (251 lb)11/12/2018 1:11 AM VWOHfptvp361.7 cm (5' 8 )11/12/2018 1:11 AM EDTBody Mass Index38.1607 1:11 AM EDT Plan of Treatment Health MaintenanceDue DateLast DoneCommentsDepression Nmfbvhwjl55/11/2009Tobacco Aexhwqnuh44/11/2009dult BMI Xdhlmwfxc08/11/2015DTaP,Tdap and Td Vaccines (1 - Tdap)2015Pap Smear2017Influenza Xtzweco5001/05/2025 Medical Devices Not on file Insurance Care Teams Team MemberRelationshipSpecialtyStart DateEnd Date No Pcp, [place] [address] PCP - GeneralFamily Medicine11/12/18
--- NOTE | 2025-04-26 14:17 | ED.GENADUL1 ---
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 She states she had a confirmed by ultrasound miscarriage. It was done at her esthetician/skin therapist's office in [place]. She was sent home and she states she passed some tissue last night which she brought in. She has had continued bleeding and was concerned. No fever. Blood type is O+ according to the electronic health record. Related Data Home Medications ?Medication ?Instructions ?Recorded ?Confirmed No Known Home Medications 03/17/25 03/17/25 Allergies Allergy/AdvReac Type Severity Reaction Status Date / Time No Known Drug Allergies Allergy Verified 04/26/25 14:07 Review of Systems ROS Narrative A ten point review of systems is negative except as noted above. PFSH PFSH Social History Little interest or pleasure in doing things: not at all Feeling down, depressed, or hopeless: not at all Exam Narrative Exam Narrative: Nurses note and vital signs reviewed General:The patient appears well and in no apparent distress.Patient is resting comfortably on cart. Skin:Warm, dry, no pallor noted.There is no rash noted. Head:Normocephalic, atraumatic Eye: Normal conjunctiva, no drainage Ears, Nose, Mouth, and Throat: oral mucosa is moist. Nares patent. Cardiovascular:Regular Rate and Rhythm Respiratory:Patient is in no distress, no accessory muscle use, lungs are clear to auscultation, no wheezing, rales or rhonchi Back:non-tender GI: Soft and nontender nondistended Musculoskeletal: The patient has no evidence of calf tenderness, no pitting edema, symmetrical pulses noted bilaterally Neurological:A&O, normal speech Psychiatric:Cooperative Constitutional Vital Signs, click to edit/add: Last Vital Signs Temp 98.5 F 04/26/25 14:02 Pulse 88 04/26/25 15:45 Resp 18 04/26/25 15:45 BP 118/73 04/26/25 14:02 Pulse Ox 100 04/26/25 15:45 O2 Del Method Room Air 04/26/25 14:02 Course Vital Signs Vital signs: Vital Signs Temperature 98.5 F 04/26/25 14:02 Pulse Rate 109 H 04/26/25 14:02 Respiratory Rate 18 04/26/25 14:02 Blood Pressure 118/73 04/26/25 14:02 Pulse Oximetry 98 04/26/25 14:02 Oxygen Delivery Method Room Air 04/26/25 14:02 Temperature 98.5 F 04/26/25 14:02 Pulse Rate 88 04/26/25 15:45 Respiratory Rate 18 04/26/25 15:45 Blood Pressure 118/73 04/26/25 14:02 Pulse Oximetry 100 04/26/25 15:45 Oxygen Delivery Method Room Air 04/26/25 14:02 Medical Decision Making MDM Narrative Medical decision making narrative: The patient's hCG titer in 4 days has gone from just over 10,000 down to 966. Blood type is O+. Ultrasound shows possible products of conception in the uterus. Case discussed with Dr. Harris. We have agreed that the patient will be discharged home and the patient will call her esthetician/skin therapist in the morning. There is no indication for an emergent D&C. Hemoglobin is also appropriate. Treatment diagnosis and follow-up were discussed thoroughly with the patient. Differential Diagnosis Differential Diagnosis: Miscarriage, incomplete miscarriage Lab Data Lab results reviewed: Yes I reviewed the patient's lab results Labs: Lab Results 04/26/25 Range/Units 14:27 WBC 11.9 H (4.0-11.0) 10^3/uL RBC 3.84 L (4.20-5.40) 10^6/uL Hgb 11.9 L (12.0-16.0) g/dL Hct 35.7 L (36.0-48.0) % MCV 93.0 (81.0-99.0) fL MCH 31.0 (26.7-34.0) pg MCHC 33.3 (29.9-35.2) g/dL RDW 13.7 (11.0-15.0) % Plt Count 301 (150-450) 10^3/uL MPV 9.6 (9.5-13.5) fL Neut % (Auto) 64.2 (43.0-75.0) % Lymph % (Auto) 26.3 (20.5-60.0) % [place] % (Auto) 4.8 (1.7-12.0) % Eos % (Auto) 2.1 (0.9-7.0) % Baso % (Auto) 0.5 (0.2-2.0) % Neut # (Auto) 7.7 H (1.4-6.5) 10^3/uL Lymph # (Auto) 3.1 (1.2-3.8) 10^3/uL [place] # (Auto) 0.6 (0.3-0.8) 10^3/uL Eos # (Auto) 0.3 (0.0-0.7) 10^3/uL Baso # (Auto) 0.1 (0.0-0.1) 10^3/uL Abs Immat Gran (auto) 0.25 H (0.00-0.03) 10^3/uL Imm/Tot Granulo (auto) 2.1 H (0.0-0.5) % Sodium 143 (136-145) mmol/L Potassium 4.0 (3.5-5.1) mmol/L Chloride 106 (98-107) mmol/L Carbon Dioxide 27.8 (21.0-32.0) mmol/L Anion Gap 13.2 BUN 7.0 (7.0-18.0) mg/dL Creatinine 0.63 (0.55-1.02) mg/dL Est GFR ( Amer) >60 (>=60 mL/min/1.73m^2) Est GFR (Non-Af Amer) >60 (>=60 mL/min/1.73m^2) BUN/Creatinine Ratio 11.1 Glucose 104 (74-106) mg/dL Calcium 9.0 (8.5-10.1) mg/dL HCG, Quant 966 mIU/mL Imaging Data Pelvic ultrasound: Radiologist's impression: ITS Impressions Transvaginal US 04/26/25 14:16 Impression: Thickened heterogenous endometrium suspicious for retained products of conception. Impression dictated by: Marco Scott Jr.OJaison 04/26/2025 3:57 PM Dictation Location: [place] [address] Electronically authenticated by: [id number] Y Date: 04/26/2025 15:57 Discharge Plan Discharge Chief Complaint: Vaginal Bleeding Clinical Impression: Incomplete miscarriage Patient Disposition: Home, Self-Care Time of Disposition Decision: 16:51 Condition: Good Mode of Transportation: Private Vehicle Prescriptions / Home Meds: No Action No Known Home Medications Print Language: Korean Instructions: Miscarriage (ED) Additional Instructions: Call your esthetician/skin therapist's office in the morning for follow-up. Referrals: Physician,Non-Staff, MD [Primary Care Provider] - 1 week
[2025-04-26 14:38] LABS: Hematocrit 35.7 % (36.0-48.0); Hemoglobin 11.9 g/dL (12.0-16.0); Immature Granulocytes Abs Auto 0.25 10^3/uL (0.00-0.03); Immature Granulocytes Pct Auto 2.1 % (0.0-0.5); Lymphocytes Absolute Auto 3.1 10^3/uL (1.2-3.8); Mean Corpuscular HGB Conc 33.3 g/dL (29.9-35.2); Mean Corpuscular Hemoglobin 31.0 pg (26.7-34.0); Mean Corpuscular Volume 93.0 fL (81.0-99.0); Platelet Count 301 10^3/uL (150-450); Red Blood Count 3.84 10^6/uL (4.20-5.40); White Blood Count 11.9 10^3/uL (4.0-11.0)
[2025-04-26 15:04] LABS: Anion Gap 13.2; Blood Urea Nitrogen 7.0 mg/dL (7.0-18.0); Calcium 9.0 mg/dL (8.5-10.1); Carbon Dioxide 27.8 mmol/L (21.0-32.0); Chloride 106 mmol/L (98-107); Estimated GFR (African America >60 (>=60 mL/min/1.73m^2); Estimated GFR (Non-African Ame >60 (>=60 mL/min/1.73m^2); Glucose 104 mg/dL (74-106); Potassium 4.0 mmol/L (3.5-5.1); Sodium 143 mmol/L (136-145)
[2025-04-26 15:45] VITALS: PULSE 88; O2SAT 100
[2025-04-26 17:16] VITALS: BP 124/73; PULSE 87; O2SAT 99
== END 2025-04-26 17:16 | disposition home or self-care (01) ==
PROVIDERS: Emergency Provider Emergency Medicine
DX: O03.4 Incomplete spontaneous abortion without complication (principal)
CPT/HCPCS: 36415; 76817; 80048; 84702; 85025; 99284; 99285